=== PATIENT | male | born 1945 | race African-American/Black ===

== ENCOUNTER 2019-12-10 17:29 | Inpatient (IN) | payer OTHER ==
[2019-12-10] MEDS ORDERED: ALBUTEROL SO4 2.5/IPRATROPIUM 0.5 INH SOL 3 ML VIAL.NEB. NEB ONE (17:39)
--- NOTE | 2019-12-10 18:03 | HP ---
CIWA Score Nausea/Vomitin-No Nausea/No Vomiting Muscle Tremors: 1-None Visible, but [place] Anxiety: 1-Mildly Anxious Agitation: 1-Slight > Activity Paroxysmal Sweats: No Perspiration (poor historian) Orientation: 1-Uncertain about Date Tacttile Disturbances: 0-None Auditory Disturbances: 0-None Visual Disturbances: 0-None Headache: 0-None Present CIWA-Ar Total Score: 4 - Admission Criteria OASAS Guidelines: Admission for Medically Managed Detox: Requires at least one of the followin. CIWA greater than 12 2. Seizures within the past 24 hours 3. Delirium tremens within the past 24 hours 4. Hallucinations within the past 24 hours 5. Acute intervention needed for co occurring medical disorder 6. Acute intervention needed for co occurring psychiatric disorder 7. Severe withdrawal that cannot be handled at a lower level of care (continued vomiting, continued diarrhea, abnormal vital signs) requiring intravenous medication and/or fluids 8. Patient presents the following: Acute intervention needed for co-occurring med or psych disorder Admission Criteria Met: Admission criteria met Admission ROS [facility] Chief Complaint: SEEKING ALCOHOL DETOX. C/O WORSENING WITHDRAWAL SX'S Allergies/Adverse Reactions: Allergies Allergy/AdvReac Type Severity Reaction Status Date / Time Penicillins Allergy Verified 12/10/19 19:20 History of Present Illness: HERE FOR ALCOHOL DETOX. REFERRED BY [facility]. THIS IS HIS FIRST ADMISSION. SEEKING DETOX FOR ALCOHOLISM. CLIENT REPORTS DAILY USE OF 4 NIPS OF VODKA. 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 HE ALSO REPORTS CANNABIS AND COCAINE ABUSE.DENIES IVDU, HX/O DRUG OVERDOSE. CLIENT REPORTS MOST RECENT CLEAN TIME 1 MONTH. RELAPSING AT THE BEGINNING OF THE YEAR. LIVES ALONE, DENIES LEGALS Exam Limitations: Physical Impairment (OBESE, KELLER) - Ebola screening Have you traveled outside of the country in the last 21 days: No Have you had contact with anyone from an Ebola affected area: No Have you been sick,other than usual withdrawal symptoms: No Do you have a fever: No - Review of Systems Constitutional: Chills, Loss of Appetite, Night Sweats EENT: reports: Dental Problems (MISSING ALL TEETH) Respiratory: reports: Shortness of Breath, SOB with Exertion, Other (ASTHMA, copd client report cpap at home but does not use.) Cardiac: reports: No Symptoms Reported GI: reports: Poor Fluid Intake : reports: No Symptoms Reported Musculoskeletal: reports: No Symptoms Reported Integumentary: reports: Dryness (DRY SCALY BLE WITH VASCULAR CHANGES), Rash (PSORIASIS) Neuro: reports: Tremors, Unsteady Gait (AMBULATES WITH ROLLING WALKER) Endocrine: reports: Other (DM) Hematology: reports: No Symptoms Reported Psychiatric: reports: Orientated x3, Anxious Other Systems: Reviewed and Negative Patient History - Patient Medical History Hx Anemia: No Hx Asthma: Yes Hx Chronic Obstructive Pulmonary Disease (COPD): Yes Hx Cancer: No Hx Cardiac Disorders: No Hx Congestive Heart Failure: No Hx Hypertension: No Hx Hypercholesterolemia: No Hx Pacemaker: No HX Cerebrovascular Accident: No Hx Seizures: No Hx Dementia: No Hx Diabetes: Yes Hx Gastrointestinal Disorders: No Hx Liver Disease: No Hx Genitourinary Disorders: No Hx Sexually Transmitted Disorders: No Hx Renal Disease (ESRD): No Hx Thyroid Disease: No Hx Human Immunodeficiency Virus (HIV): No Hx Hepatitis C: Yes (TX'ED) Hx Depression: No Hx Suicide Attempt: No Hx Bipolar Disorder: No Hx Schizophrenia: No Other Medical History: DENIES - Patient Surgical History Past Surgical History: Yes Hx Orthopedic Surgery: Yes (R FOOT BUNION SX,) Anesthesia Reaction: No - PPD History Previous Implant?: Yes Documented Results: Positive w/o proof Implanted On Prior [facility] Admission?: No PPD to be Administered?: No - Smoking Cessation Smoking history: Former smoker Have you smoked in the past 12 months: Yes Aproximately how many cigarettes per day: 10 If you are a former smoker, when did you quit?: 6 MONTHS AGO Cigars Per Day: 0 Hx Chewing Tobacco Use: Yes Initiated information on smoking cessation: No - Substance & Tx. History Hx Alcohol Use: Yes Hx Substance Use: Yes Substance Use Type: Alcohol, Cocaine, Marijuana Hx Substance Use Treatment: Yes (DOES NOT RECALL) - Substances abused Alcohol Other (specify): VODKA Substance route: Oral Frequency: Daily (4X AWEEK) Amount used: 4 NIPS Age of first use: 41 Date of last use: 12/09/19 Cocaine Substance route: Inhalation (SMOKE) Frequency: 3-6 times per week (4X) Amount used: 1GM Age of first use: 12 Date of last use: 12/08/19 Marijuana/Hashish Substance route: Smoking Frequency: 1-2 times per week Amount used: 3 BLUNTS Age of first use: 14 Date of last use: 12/06/19 Admission Physical Exam [facility] - Physical General Appearance: Yes: Mild Distress, Other (arousable with freq periods of drowsiness. client is poor historian) HEENTM: Yes: EOMI, Normocephalic, Normal Voice, LUZMA, Pharynx Normal, Other (edentulous) Respiratory: Yes: Chest Non-Tender, Decreased Breath Sounds, Labored Respiration, Crackles, Wheezing Neck: Yes: No masses,lesions,Nodules, Supple, Trachea in good position Breast: Yes: Breasts Symetrical Cardiology: Yes: Regular Rhythm, Regular Rate, S1, S2 Abdominal: Yes: Normal Bowel Sounds, Non Tender, Soft, Protuberent Genitourinary: Yes: Hesitency Back: Yes: Normal Inspection Musculoskeletal: Yes: Other (unsteady gait, ambualtes with rolling walker) Extremities: Yes: Other (ble edema r non pitting cool to touch with rednessa nd vascular discoloration. lle with 2+ pitting edema) Neurological: Yes: Alert (arousable) Integumentary: Yes: Other (ble vascualr changes with edema and redness to rle) Lymphatic: Yes: Within Normal Limits - Diagnostic (1) Alcohol dependence with withdrawal, uncomplicated Status: Acute (2) Cannabis dependence, uncomplicated Status: Acute (3) Cocaine dependence, uncomplicated Status: Acute (4) Asthma Status: Acute (5) Diabetes Status: Acute (6) HLD (hyperlipidemia) Status: Acute (7) Neuropathy Status: Acute (8) Poor historian Status: Acute (9) Obesity (BMI 30-39.9) Status: Acute (10) Impaired mobility and personal care Status: Acute (11) Dependent on walker for ambulation Status: Acute (12) Sleep apnea Status: Acute Comment: non complaint w/ cpap (13) Non-compliance Status: Acute Comment: with medication and cpap Cleared for Admission [facility] - Detox or Rehab [facility] Level of Care: Medically Managed Detox Regimen/Protocol: Ativan Claeared for Rehab Admission: No Screened but not Admitted - Documentation of Visit Screened but not Admitted: Yes Left Prior to Completion of Assessment: No Insurance Authorization Denied: No Patient Does Not Meet Criteria for Admission: Yes Level of Care Recommended at this Time: ER Evaluation/Care (tx to sj for worsening sob, ble edema, somnolence) Inpatient Rehab Admission - Rehab Decision to Admit Inpatient rehab admission?: No
[2019-12-10] MEDS ORDERED: P-EPHED 60MG/TRIPROLIDI 2.5MG TABLET PO PRN (18:37)
[2019-12-10] MEDS ORDERED: DICYCLOMINE HCL 10 MG CAPSULE PO PRN (18:37)
[2019-12-10] MEDS ORDERED: MENTHOL/PHENOL 1 EACH UD MM PRN (18:37)
[2019-12-10] MEDS ORDERED: MAG HYDROX/AL HYDROX/SIMETH 30 ML UNIT-DOSE CUP PO PRN (18:37)
[2019-12-10] MEDS ORDERED: IBUPROFEN 400 MG TABLET (FP) PO PRN (18:37)
[2019-12-10] MEDS ORDERED: guaiFENesin 200 MG/10 ML 10 ML UNIT-DOSE CUPS PO PRN (18:37)
[2019-12-10] MEDS ORDERED: MAGNESIUM CITRATE 300 ML BOTTLE PO PRN (18:37)
[2019-12-10] MEDS ORDERED: ACETAMINOPHEN 325 MG TABLET (FP) PO PRN ×2 (18:37)
[2019-12-10] MEDS ORDERED: BISMUTH SUBSALICYLATE 524 MG/30 ML UD PO PRN (18:37)
[2019-12-10] MEDS ORDERED: MAGNESIUM HYDROX 2400MG/30ML ORAL SUSPENSION 30 ML CUP PO PRN (18:37)
[2019-12-10] MEDS ORDERED: METHOCARBAMOL 500 MG TABLET PO PRN (18:37)
[2019-12-10 18:49] VITALS: BP 134/89; PULSE 81; TEMP 97.2; BMI 39.5
--- NOTE | 2019-12-10 20:10 | PN ---
[facility] Progress Note Note: client is a poor historian, seeking alcohol detox. client is very sleepy on interview, requiring frequent reminders to stay awake. he c/o sob with audible wheezing, given duoneb x1 with mild relief, 02 sat 92 r/a. given 02 l liter for comfort. client exhibits kirby and also sob at rest. ble swelling noted, cool to touch right with some redness, left with pitting edema. both with dryness and scaly skin. client was found with a bottle of unopened eloquis dated from 03/2019. client unsure of dvt hx. initially denying then stating he no longer has it. case d/w dr. Wells from [facility] transfer to [facility] for medical clearance for sob/ r/o dvt, client may return to [facility] once cleared
[2019-12-10] MEDS ORDERED: THIAMINE HCL 100 MG TABLET (FP) PO SCH (22:00)
[2019-12-10] MEDS ORDERED: MELATONIN 5 MG TABLETS PO SCH (22:00)
--- NOTE | 2019-12-11 08:58 | EKG ---
Test Reason : Blood Pressure : / mmHG Vent. Rate : 072 BPM Atrial Rate : 072 BPM P-R Int : 298 ms QRS Dur : 144 ms QT Int : 436 ms P-R-T Axes : 066 -78 036 degrees QTc Int : 477 ms SINUS RHYTHM WITH 1ST DEGREE A-V BLOCK WITH FREQUENT PREMATURE VENTRICULAR COMPLEXES RIGHT BUNDLE BRANCH BLOCK LEFT ANTERIOR FASCICULAR BLOCK BIFASCICULAR BLOCK ABNORMAL ECG NO PREVIOUS ECGS AVAILABLE Confirmed by AMRIK CHI MD ([id number]) on 12/11/2019 8:58:15 AM Referred By: Confirmed By:AMRIK CHI MD
[2019-12-11] MEDS ORDERED: PRENATAL VITAMINS W/ FOLIC ACID TABLET (FP) PO SCH (10:00)
[2019-12-11] MEDS ORDERED: PNEUMOC 13-VAL CONJ-DIP CRM/PF 0.5 ML DISP.SYRIN IM ONE (12:00)
== END 2019-12-11 00:01 | disposition short-term general hospital (02) | DRG 897 ==
LOC: YASAS 17:29 → Y6N 19:41
PROVIDERS: ADMIT Allergy & Immunology; ATTEND Allergy & Immunology
PROC: HZ2ZZZZ Detoxification Services for Substance Abuse Treatment (ICD-10-PCS; principal; 2019-12-10)
DX: F10.230 Alcohol dependence with withdrawal, uncomplicated (principal); F14.10 Cocaine abuse, uncomplicated; F12.10 Cannabis abuse, uncomplicated; F17.210 Nicotine dependence, cigarettes, uncomplicated; J44.9 Chronic obstructive pulmonary disease, unspecified; E11.9 Type 2 diabetes mellitus without complications; Z79.4 Long term (current) use of insulin; L40.9 Psoriasis, unspecified; L85.3 Xerosis cutis; E78.5 Hyperlipidemia, unspecified; G62.9 Polyneuropathy, unspecified; Z74.09 Other reduced mobility; G47.39 Other sleep apnea; R60.0 Localized edema; R26.89 Other abnormalities of gait and mobility; R06.9 Unspecified abnormalities of breathing; Z86.19 Personal history of other infectious and parasitic diseases; Z91.14 Patient's other noncompliance with medication regimen; Z99.89 Dependence on other enabling machines and devices; E66.9 Obesity, unspecified; Z68.39 Body mass index [BMI] 39.0-39.9, adult
CPT/HCPCS: 82962; 93005; 93010; U0003

== ENCOUNTER 2019-12-10 20:44 | Inpatient (IN) | payer OTHER ==
[2019-12-10] MEDS ORDERED: ALBUTEROL SO4 HFA INHALER IH ONE ×2 (22:01→22:51)
[2019-12-10] MEDS ORDERED: MAGNESIUM SULF 50% (8.12 MEQ/2 ML-1 GM VIAL) IVPB ONE (22:01)
--- NOTE | 2019-12-10 22:17 | PDOC ---
Documentation entered by Maria D Ledesma SCRIBE, acting as scribe for Monica Reeder DO. Monica Reeder DO: This documentation has been prepared by the jelly, Maria D Ledesma SCRIBE, under my direction and personally reviewed by me in its entirety. I confirm that the documentation accurately reflects all work, treatment, procedures, and medical decision making performed by me. Attending Attestation - Resident Resident Name: Neeraj Madrid - ED Attending Attestation I have performed the following: I have examined & evaluated the patient, The case was reviewed & discussed with the resident, I agree w/resident's findings & plan, Exceptions are as noted - HPI HPI: 12/10/19 21:01 Patient is a 74 year old male with a significant past medical history of afib, htn, copd, chf, and alcohol abuse who [place] [facility] [place] Pt was noted to be hypoxic and wheezing. Pt states his legs have been swollen and he has felt sob. Pt is noncompliant with his eliquis and sent to the ER for further evaluation. 12/10/19 23:57 - Physicial Exam PE: 12/10/19 22:09 gen: sleepy, but arousable heent: EOMI, MMM neck: supple heart: +s1s2 reg lungs: diminished bs b/l bases abd: soft, nt, nd, +bs, obese ext: chronic venous stasis changes to b/l LE, pulses intact - Medical Decision Making 12/10/19 22:12 a/p: 74yo male sent from [facility] for eval of sob and leg swelling -hx of etoh abuse -pt with sob and leg swelling -supposed to be on eliquis for afib -currently in sinus with a 1st degree av block -will send labs, ekg, cxr, dvt ultrasound, trop -will send vbg -will give albuterol and mag 12/10/19 22:45 dvt neg 12/10/19 23:08 trop neg, bnp 300 cxr shows pulm vasc congestion at the bases 12/10/19 23:59 iv lasix given will obtain ct chest to eval for poss pna will need admission pt endorsed to the night team pending ct chest and admission Heart Score/ECG Review - ECG Intrepretation Comment:: 12/10/19 22:21 sinus at 72, 1st degree av block, rbbb, lafb, pac, abnl ekg Discharge - Discharge Information Problems reviewed: Yes Clinical Impression/Diagnosis: Pulmonary edema, Dyspnea Condition: Fair - Admission Yes - Follow up/Referral - Patient Discharge Instructions - Post Discharge Activity
[2019-12-10 22:19] LABS: VENOUS BASE EXCESS 1.4 mmol/L (-2-2); VENOUS O2 SATURATION 54.5 % (70-80); VENOUS PCO2 56.7 mmHg (38-52); VENOUS PH 7.326 (7.310-7.410)
[2019-12-10 22:21] LABS: BASO % 0.6 % (0-2.0); EOS % 2.3 % (0-4.5); HEMATOCRIT 48.2 % (35.4-49); HEMOGLOBIN 15.8 GM/dL (11.7-16.9); LYMPH % 31.2 % (8-40); MCH 30.5 pg (25.7-33.7); MCHC 32.7 g/dl (32.0-35.9); MEAN CELL VOLUME 93.5 fl (80-96); MEAN PLT VOLUME 9.4 fl (7.5-11.1); NEUT % 58.9 % (42.8-82.8); PLATELET COUNT 122 K/MM3 (134-434); RBC 5.16 M/mm3 (4.00-5.60); RDW 17.1 % (11.9-15.9); WHITE BLOOD COUNT 7.9 K/mm3 (4.0-10.0)
--- NOTE | 2019-12-10 22:33 | PDOC ---
History of Present Illness - General Chief Complaint: Shortness of Breath Stated Complaint: S O B Time Seen by Provider: 12/10/19 20:52 - History of Present Illness Initial Comments: 12/10/19 22:30 74yo male with PMH of polysubstance abuse, a-fib (on Eliquis, but has not been taking it at least for the past month) asthma (vs. COPD), DM, HLD, DIDI, sent from [facility] for SOB. Patient reports SOB that he attributes to his asthma. Also reports orthopnea. Also reports occasional leg pain, sometimes right sometimes left ROS GENERAL/CONSTITUTIONAL: No fever or chills. No weakness. HEAD, EYES, EARS, NOSE AND THROAT: No change in vision. No ear pain or discharge. No sore throat. CARDIOVASCULAR: No chest pain. + shortness of breath RESPIRATORY: No cough, wheezing, or hemoptysis. GASTROINTESTINAL: No nausea, vomiting, diarrhea or constipation. GENITOURINARY: No dysuria, frequency, or change in urination. MUSCULOSKELETAL: b/l leg pain, not at present. No neck or back pain. SKIN: No rash NEUROLOGIC: No headache, vertigo, loss of consciousness, or change in strength/sensation. ENDOCRINE: No increased thirst. No abnormal weight change HEMATOLOGIC/LYMPHATIC: No anemia, easy bleeding, or history of blood clots. ALLERGIC/IMMUNOLOGIC: No hives or skin allergy. PE GENERAL: Awake, alert, and fully oriented, in no acute distress. Later more somnolent HEAD: No signs of trauma, normocephalic, atraumatic EYES: PERRLA, EOMI, sclera anicteric, conjunctiva clear ENT: Auricles normal inspection, hearing grossly normal, nares patent, oropharynx clear without exudates. Moist mucosa NECK: Normal ROM, supple, no lymphadenopathy, JVD, or masses LUNGS: No distress, speaks full sentences, clear to auscultation bilaterally, diminished breath sounds HEART: Regular rate and irregular rhythm, normal S1 and S2, no murmurs, rubs or gallops, peripheral pulses normal and equal bilaterally. ABDOMEN: Soft, nontender, normoactive bowel sounds. No guarding, no rebound. No masses EXTREMITIES : chronic venous stasis changes. 1+ b/l pitting edema to knee. No erythema NEUROLOGICAL: Cranial nerves II through XII grossly intact. Normal speech, no focal sensorimotor deficits SKIN: Warm, Dry Vital Signs Temp Pulse Resp BP Pulse Ox 98.2 F 76 20 150/86 94 L 12/11/19 00:35 12/11/19 00:35 12/10/19 23:41 12/11/19 00:35 12/10/19 23:41 MDM 74yo male with extensive PMH transfered from [facility] for SOB, also reports occasional leg pain. DDx: ACS vs. COPD/asthma vs. CHF. DVT vs. venous stasis vs. msk pain vs CHF -EKG -CXR -CBC, CMP, cardiac enzymes, VBG, BNP, mg -US LE b/l -albuterol inhaler -magnesium IV 12/11/19 01:48 EKG: NSR with 1st degree AV block, frequent PVCs, RBBB, left anterior fascicular block, QTc 477, no ischemic changes CXR: increased vascular markings labs: -CBC: no white count, no anemia, RDW 17.1, platelets 122 -VBG: pH 7.326, pCO2 56.7 -CMP: Ca 8.3 -trops neg x1 -BNP 362.7 -Ordered for 40mg lasix IV and CT chest with concern for CHF vs. pneumonia vs. covid pneumonia Patient was urinating significantly after lasix and got out of stretcher to urinate while at CT. Fell, no headstrike or LOC. Got CT head and c-spine 12/11/19 02:02 CT head: Nasal bridge fracture without skull fracture or intracranial hemor rhage. CT C-spine: FINDINGS: Mild motion artifact is noted. There are moderate degenerative change with mild degenerative listheses. No fracture or prevertebral soft tissue edema. The lung apices are clear. IMPRESSION: Mildly limited exam without evidence of fracture. CT Chest: FINDINGS: There is no aortic aneurysm. There is no significant mediastinal or hilar adenopathy. The heart size is normal. The trachea and bronchi are patent. There is no pleural or pericardial effusion. Moderate emphysema is noted, predominating in the upper lobes. The lungs are clear with a minimal linear atelectasis. The upper abdominal structures are normal.. IMPRESSION: Moderate emphysema. 12/11/19 02:16 Admit for symptomatic SOB -- CHF vs COPD exacerbation. Good UOP with lasix and emphysema on CT chest Signed out to admitting team 12/11/19 05:20 Past History - Medical History Allergies/Adverse Reactions: Allergies Allergy/AdvReac Type Severity Reaction Status Date / Time Penicillins Allergy Verified 12/10/19 19:20 Home Medications: Ambulatory Orders Albuterol Sulfate [Albuterol Sulfate Hfa] PRN 12/10/19 Atorvastatin Ca [Lipitor] 40 mg PO HS 12/10/19 Gabapentin [Neurontin] 100 mg PO TID 12/10/19 Lisinopril 30 mg PO DAILY 12/10/19 Metformin HCl [Glucophage] 1,000 mg PO DAILY 12/10/19 Spiriva 12/10/19 Anemia: No Asthma: Yes Cancer: No Cardiac Disorders: No CVA: No COPD: Yes CHF: No Dementia: No Diabetes: Yes GI Disorders: No Disorders: No HTN: No Hypercholesterolemia: No Kidney Stones: No Liver Disease: No Seizures: No Thyroid Disease: No - Surgical History Abdominal Surgery: No Appendectomy: No Cardiac Surgery: No Cholecystectomy: No Lung Surgery: No Neurologic Surgery: No Orthopedic Surgery: Yes (R FOOT BUNION SX,) - Reproductive History Testicular Surgery: No - Immunization History Immunization Up to Date: Yes - Psycho-Social/Smoking History Smoking History: Former smoker Have you smoked in the past 12 months: Yes Number of Cigarettes Smoked Daily: 10 If you are a former smoker, when did you quit?: 6 MONTHS AGO Cigars Per Day: 0 Information on smoking cessation initiated: No - Substance Abuse Hx (Audit-C & DAST Scrn) How often the patient has a drink containing alcohol: Never Number of drinks the patient has on a typical day: 1 or 2 How often the patient has six or more drinks on one occasion: Never Score: In Men: 4 or > Positive; In Women: 3 or > Positive: 0 Screen Result (Pos requires Nsg. Audit-10AR): Negative In the last yr the pt used illegal drug/Rx for NonMed reason: No Score: Yes response is considered Positive: 0 Screen Result (Positive result requires Nsg. DAST-10): Negative *Physical Exam - Vital Signs Last Vital Signs Temp Pulse Resp BP Pulse Ox 98.2 F 82 22 H 143/77 93 L 12/10/19 20:58 12/10/19 20:58 12/10/19 20:58 12/10/19 20:58 12/10/19 20:58 ED Treatment Course - LABORATORY CBC & Chemistry Diagram: 12/10/19 22:00 12/10/19 22:00 - ADDITIONAL ORDERS Additional order review: Laboratory Results 12/10/19 22:00 VBG pH 7.326 POC VBG pCO2 56.7 H POC VBG pO2 31.4 VBG HCO3 29.0 VBG O2 Sat (Jadon) 54.5 L VBG Base Excess 1.4 12/10/19 22:00 RBC 5.16 MCV 93.5 MCHC 32.7 RDW 17.1 H MPV 9.4 Neutrophils % 58.9 Lymphocytes % 31.2 Monocytes % 7.0 Eosinophils % 2.3 Basophils % 0.6 Discharge - Discharge Information Problems reviewed: Yes Clinical Impression/Diagnosis: Pulmonary edema, Dyspnea Condition: Fair - Follow up/Referral - Patient Discharge Instructions - Post Discharge Activity
[2019-12-10] MEDS ORDERED: MAGNESIUM 1GM/D5W - 1 GM/100 ML IVPB IVPB ONE (22:51)
[2019-12-10 22:54] LABS: ALBUMIN 3.6 g/dl (3.4-5.0); BILIRUBIN,TOTAL 0.3 mg/dL (0.2-1); BLOOD UREA NITROGEN 14.1 mg/dL (7-18); CALCIUM 8.3 mg/dL (8.5-10.1); CREATININE 1.1 mg/dL (0.55-1.3); MAGNESIUM 2.2 mg/dL (1.8-2.4); N-TERMINAL BNP 362.7 pg/ml (5-125); POTASSIUM 3.9 mmol/L (3.5-5.1); TOT PROT 8.1 g/dl (6.4-8.2)
[2019-12-10] MEDS ORDERED: FUROSEMIDE 40 MG/4 ML INJECTABLE VIAL IVPUSH ONE (23:24)
[2019-12-10] MEDS ORDERED: FUROSEMIDE 40 MG/4 ML INJECTABLE VIAL ONE (23:32)
--- NOTE | 2019-12-11 02:40 | PN ---
Teaching Attending Note Name of Resident: Susana Carney ATTENDING PHYSICIAN STATEMENT I saw and evaluated the patient. I reviewed the resident's note and discussed the case with the resident. I agree with the resident's findings and plan as documented. SUBJECTIVE: Patient is a 74 year old man with a PMH of Penicillin allergy, Afib (prescribed Eliquis but not taking it), HTN, COPD, CHF, Polysubstance abuse (Alcohol, Cocaine, Marijuana), DIDI, NIDDM and HLD sent from [facility] for SOB and leg swelling. Was noted to be hypoxic and wheezing. Patient states his legs have been swollen and he has felt short of breath and has orthopnea. Also reports occasional leg pain. Generally nonadherent with his medications. Patient denies chest pain, abdominal pain, headache, palpitations, dizziness, fever, chills, nausea, vomiting, diarrhea, constipation, dysuria, frequency, urgency, melena, hematochezia or hematuria. Former smoker. Denies tobacco use. No sick contacts or recent travels. Family history is unremarkable. Fell down in CT scan when he got up to urinate - prompting head and C-spine CT scan. OBJECTIVE: Alert Vital Signs Period Temp Pulse Resp BP Sys/Val[place] Pulse Ox Last 24 Hr 98.2 F-98.2 F 73-83 20-22 143-150/63-86 93-97 HEENT: No Jaundice, eye redness or discharge, PERRLA, EOMI. Normocephalic, atr aumatic. External ears are normal and hearing is grossly intact. No nasal discharge. Neck: Supple, nontender. No palpable adenopathy or thyromegaly. No JVD Chest: Good effort. Diminished breath sounds. Clear to percussion. Heart: Regular. No S3, rub or murmur Abdomen: Not distended, soft, nontender and no HSM. No rebound or guarding. Normal bowel sounds. Ext: Peripheral pulses intact. Chronic venous stasis dermatitis changes; leg edema. Skin: Warm and dry. No petechiae, rash or ecchymosis. Neuro: Alert. Oriented x3. CN 2-12 grossly intact. Sensation grossly intact in all four extremities and DTR are symmetric. Psych: Appropriate mood and affect. Good insight. Home Medications Medication Instructions Recorded Albuterol Sulfate [Albuterol PRN 12/10/19 Sulfate Hfa] Atorvastatin Ca [Lipitor] 40 mg PO HS 12/10/19 Gabapentin [Neurontin] 100 mg PO TID 12/10/19 Lisinopril 30 mg PO DAILY 12/10/19 Metformin HCl [Glucophage] 1,000 mg PO DAILY 12/10/19 Spiriva 12/10/19 Abnormal Lab Results 12/10/19 12/10/19 12/10/19 22:00 22:00 22:00 RDW 17.1 H Plt Count 122 L POC VBG pCO2 56.7 H VBG O2 Sat (Jadon) 54.5 L Calcium 8.3 L B-Natriuretic Peptide 362.7 H Current Medications Generic Name Dose Route Start Last Admin Trade Name Freq PRN Reason Stop Dose Admin Albuterol/Ipratropium 1 amp 12/11/19 05:23 Duoneb - NEB Q6H PRN SHORTNESS OF BREATH Chlordiazepoxide HCl 25 mg 12/11/19 05:00 Librium - PO 12/11/19 21:01 Q8H [facility] Chlordiazepoxide HCl 10 mg 12/13/19 00:00 Librium - PO 12/13/19 23:59 Q12H PRN Signs/symptoms of Withdrawal Chlordiazepoxide HCl 10 mg 12/11/19 05:14 Librium - PO 12/12/19 23:59 Q8H PRN Signs/symptoms of Withdrawal Chlordiazepoxide HCl 15 mg 12/12/19 05:00 Librium - PO 12/12/19 21:01 Q8H [facility] Chlordiazepoxide HCl 10 mg 12/13/19 05:00 Librium - PO 12/13/19 21:01 Q8H [facility] Chlordiazepoxide HCl 10 mg 12/14/19 05:00 Librium - PO 12/14/19 05:01 ONCE ONE Enoxaparin Sodium 40 mg 12/11/19 10:00 Lovenox - SQ DAILY [facility] Folic Acid 1 mg 12/11/19 10:00 Folic Acid - PO DAILY [facility] Furosemide 20 mg 12/11/19 10:00 Lasix Injection - IVPUSH DAILY [facility] Multivitamins/Minerals/Vitamin C 1 tab 12/11/19 10:00 Tab-A-Vit - PO DAILY [facility] ASSESSMENT AND PLAN: 1. CHF/COPD exacerbation - Likely precipitated by nonadherence to medical care and polysubstance abuse. CXR shows cardiomegaly with pulmonary vascular congestion, blunted left costophrenic angle and hilar prominence. CT Chest: FINDINGS: There is no aortic aneurysm. There is no significant mediastinal or hilar adenopathy. The heart size is normal. The trachea and bronchi are patent. There is no pleural or pericardial effusion. Moderate emphysema is noted, predominating in the upper lobes. The lungs are clear with a minimal linear atelectasis. The upper abdominal structures are normal. IMPRESSION: Moderate emphysema. No evidence of acute intracranial pathology on noncontrast head CT scan but shows nasal bridge fracture without skull fracture or intracranial hemorrhage. CT scan of C-spine shows "moderate degenerative change with mild degenerative listheses. No fracture or prevertebral soft tissue edema." No DVT low lower extremities noted on vascular sudy. ER staff prescribed Albuterol, MgSO4 and IV Lasix for the patient. EKG shows NSR at 72/minute, 1o AV block, RBBB, LAFB, PVCs and QTc [address]-T wave changes. No old EKG available for comparison. Initial troponin is negative. Will avoid drugs that may prolong QTc. Viral testing for COVID-19 ordered and patient placed on airborne, droplet and contact isolation. Started on supplemental oxygen via nasal cannula. Will admit to telemetry, treat with IV Lasix to achieve adequate diuresis, get ECHO, restrict dietary salt intake, monitor renal function, monitor and replete electrolytes, get daily weight and consult Cardiology. Continue Albuterol, Spiriva and Symbicort. Consult Pulmonary. Low platelets may be due to alcoholism. Will continue comprehensive care for all of patients comorbid conditions. 2. DM Will implement sliding scale insulin regimen. Provide comprehensive diabetes care with patient teaching and counseling about the importance of adherence to prescribed diabetes regimen, euglycemia, eye care and foot care. 3. Obesity Counseled on the risks associated with obesity. Will provide patient all the necessary assistance, counseling and positive reinforcement to facilitate weight loss. Consult [employer]. 4. Polysubstance abuse Will monitor for drug withdrawal and alcohol, implement [facility] alcohol withdrawal protocol and do neurochecks. Implement seizure, fall and aspiration precautions. Treat with thiamine and folic acid. Monitor and replete electrolytes (Ca,Mg,K,P). Counseled patient about abstaining from alcohol. Will consult histology specialist and refer to alcohol detox upon discharge. 5. Hypertension Will restart suitable outpatient antihypertensive drugs when clinically appropriate. Subsequently, will revise regimen to ensure [id number] excellent BP control. Patient counseled on the injurious effects of uncontrolled hypertension. Nonpharmacologic measures to control hypertension like weight loss, salt restriction and exercise stressed. Importance of adherence to treatment regimen and attainment of normotension emphasized. 6. DVT prophylaxis - Lovenox 40 mg SQ q 24 hours. 7. Advance directives - Full code
[2019-12-11] MEDS ORDERED: chlordiazePOXIDE HCL 10 MG CAPSULE PO PRN (05:14)
[2019-12-11] MEDS ORDERED: THIAMINE HCL 200 MG/2 ML VIAL IVPB ONE (05:19)
[2019-12-11] MEDS ORDERED: ALBUTEROL SO4 2.5/IPRATROPIUM 0.5 INH SOL 3 ML VIAL.NEB. NEB PRN (05:23)
[2019-12-11] MEDS ORDERED: THIAMINE HCL 200 MG/2 ML VIAL ONE (05:43)
[2019-12-11] MEDS ORDERED: chlordiazePOXIDE HCL 25 MG CAPSULE ONE ×2 (05:43→15:40)
--- NOTE | 2019-12-11 06:06 | CON.CARD ---
Consult Consult Specialty:: Cardiology Referred by:: Dr. Patel Reason for Consultation:: SOB - History of Present Illness Chief Complaint: SOB History of Present Illness: 74M Hx polysubstance abuse, COPD, AF noncompliant w AC, presents to ER for SOB and sustained a mechanical fall in ER with nasal fx. Chest CT showed COPD. BNP 367 Pt denies CP/palps/edema/pnd - History Source History Provided By: Patient, Medical Record Limitations to Obtaining History: Poor Historian - Past Medical History Cardio/Vascular: Yes: AFIB, HTN Pulmonary: Yes: COPD Gastrointestinal: No: Ascites, Cancer, Constipation, Crohn's Disease, Diverticulitis, Diverticulosis, Esophageal Varices, Gastritis, GERD, GI Bleed, Hemorrhoids, Hiatal Hernia, Inflamatory Bowel Disease, Irritable Bowel Disease, Pancreatitis, Peptic Ulcer Disease, Ulcerative Colitis, Other Renal/: No: Renal Failure, Renal Inusuff, BPH, Cancer, Hematuria, Hemodialysis, Neurogenic Bladder, Renal Calculi, UTI, Other Heme/Onc: No: Anemia, B12 Deficiency, Bleeding Disorder, Cancer, Current Chemotherapy, Current Radiation Therapy, Hemochromatosis, Hypercoaguable State, Myeloproliferative Synd, Sickle Cell Disease, Sickle Cell Trait, Thrombocytopenia, Other Infectious Disease: No: AIDS, C-Diff, Herpes Zoster, HIV, MRSA, STD's, Tuberculosis, VREF, Other Psych: Yes: Addictions Musculoskeletal: No: Bursitis, Chronic low back pain, Hemiparesis, Hemiplegia, Osteoarthritis, Paraplegia, Other Rheumatology: No: Fibromyalgia, Gout, Lupus, Rheumatoid Arthritis, Sarcoidosis, Vasculitis, Other ENT: No: Allergic Rhinitis, Sinusitis, Other Endocrine: Yes: Diabetes Mellitus - Alcohol/Substance Use Hx Alcohol Use: Yes - Smoking History Smoking history: Former smoker Have you smoked in the past 12 months: Yes Aproximately how many cigarettes per day: 10 If you are a former smoker, when did you quit?: 6 MONTHS AGO - Social History History of Recent Travel: No Home Medications - Allergies Allergies/Adverse Reactions: Allergies Allergy/AdvReac Type Severity Reaction Status Date / Time Penicillins Allergy Verified 12/10/19 19:20 - Home Medications Home Medications: Ambulatory Orders Albuterol Sulfate [Albuterol Sulfate Hfa] PRN 12/10/19 Atorvastatin Ca [Lipitor] 40 mg PO HS 12/10/19 Gabapentin [Neurontin] 100 mg PO TID 12/10/19 Lisinopril 30 mg PO DAILY 12/10/19 Metformin HCl [Glucophage] 1,000 mg PO DAILY 12/10/19 Spiriva 12/10/19 Family Medical History Family History: Unremarkable (not pertinent to this presentation) Review of Systems - Review of Systems Constitutional: reports: No Symptoms Eyes: reports: No Symptoms HENT: reports: No Symptoms Neck: reports: No Symptoms Cardiovascular: reports: Shortness of Breath Respiratory: reports: SOB Gastrointestinal: reports: No Symptoms Genitourinary: reports: No Symptoms Breasts: reports: No Symptoms Reported Musculoskeletal: reports: No Symptoms Integumentary: reports: No Symptoms Neurological: reports: No Symptoms Endocrine: reports: No Symptoms Hematology/Lymphatic: reports: No Symptoms Psychiatric: reports: No Symptoms - Risk Factors Known Risk Factors: Yes: Diabetes Mellitus, Hypertension, Smoking Vital Signs: Vital Signs Temperature 97.9 F 12/11/19 05:20 Pulse Rate 73 12/11/19 05:20 Respiratory Rate 20 12/11/19 05:20 Blood Pressure 130/66 12/11/19 05:20 O2 Sat by Pulse Oximetry (%) 99 12/11/19 05:20 Constitutional: Yes: No Distress Eyes: Yes: Conjunctiva Clear Respiratory: Yes: Other (decreased breath sounds b/l, no rales or active wheezing) Gastrointestinal: Yes: Soft, Abdomen, Obese Cardiovascular: Yes: Regular Rate and Rhythm JVD: No Heart Sounds: Yes: S1, S2 (rrr) Edema: No Neurological: Yes: Confusion ...Motor Strength: WNL - Other Data Labs, Other Data: CBC, BMP 12/10/19 22:00 12/10/19 22:00 Troponin, BNP 12/10/19 22:00 Troponin I 0.02 B-Natriuretic Peptide 362.7 H Troponin, BNP 12/10/19 22:00 Troponin I 0.02 B-Natriuretic Peptide 362.7 H Laboratory Tests 12/10/19 12/10/19 12/10/19 06:11 22:00 22:00 WBC 7.9 Hgb 15.8 Plt Count 122 L Sodium 141 Potassium 3.9 Creatinine 1.1 Troponin I 0.02 B-Natriuretic Peptide 362.7 H Opiates Screen Methadone Screen Barbiturate Screen Phencyclidine Screen Ur Amphetamines Screen MDMA (Ecstasy) Screen Benzodiazepines Screen Cocaine Screen U Marijuana (THC) Screen COVID-19 ([place]) Pending 12/11/19 06:40 WBC Hgb Plt Count Sodium Potassium Creatinine Troponin I B-Natriuretic Peptide Opiates Screen Negative Methadone Screen Pending Barbiturate Screen Negative Phencyclidine Screen Negative Ur Amphetamines Screen Pending MDMA (Ecstasy) Screen Pending Benzodiazepines Screen Pending Cocaine Screen Pending U Marijuana (THC) Screen Negative COVID-19 ([place]) NSR, 1st degree AV, LAHB, RBBB, APCs Echo: Pending Imaging - Results Chest X-ray: Report Reviewed, Image Reviewed Cat Scan: Report Reviewed EKG: Image Reviewed Assessment/Plan IMP: Polysubstance abuse PAF, nonadherent with AC Chronic COPD with acute exacerbation Mechanical fall, nasal fracture REC: 1. Polysub abuse: -Librium taper as per primary team -Utox -Rehab upon discharge 2. PAF: documented PAF, now in AC -per reports non compliant w/ AC -Patient does not seem to be safe candidate for full AC -consider low dose ASA 81mg daily, probably the safer alternative -Now in NSR -Outpatient eval for suspected DIDI 3. AECOPD: -cont nebs/supp O2 -Pulm eval pending -Do not suspect sig component CHF given clear lung exam and BNP < 400, TnI negative. -Reasonable to give trial Lasix for 24-48 hours, check echo for EF assessment 4. [facility] fall: -falls precations recommended -Not ideal candidate for full AC 5. RBBB/LAHB: -Outpt cardiology f/u Can d/c telemetry.
[2019-12-11] MEDS: chlordiazePOXIDE HCL 25 MG CAPSULE PO SCH ×4 (06:13→23:13)
--- NOTE | 2019-12-11 06:29 | HP ---
CHIEF COMPLAINT: I need to pee PCP: HISTORY OF PRESENT ILLNESS: 74yo M with PMHx of polysubstance abuse (alcohol, cocaine, marihuana), ?afib not on eliquis, ?asthma vs COPD, DM, HLD, DIDI who was sent from [facility] due to SOB. Patient endorsed some generalized pain particularly in his arms, legs, and below the rib cage. Denied SOB, CP, NVD, constipation, fevers, chills, headhache. ER course was notable for: (1) RR 22 sat 93-97% on 3L NC (2) Plts 122, BNP 362.7 (3) bilateral duplex: no DVT (4) cervical spine CT: degenerative changes, no fractures (5) head CT: nasal bridge fracture, no skull fracture or hemorrhage (6) chest CT: moderate emphysema (7) CXR: congested, cardiomegaly, perihilar and peribronchial infiltrates (8) EKst degree AV block with frequent PVCs, bifascicular block Recent Travel: unable to assess PAST MEDICAL HISTORY: as per HPI PAST SURGICAL HISTORY: foot surgery 20y ago, leg surgery from [facility] Social History: Smokin packets per day Alcohol: "too much" Drugs: cocaine 2 days ago Job: "I take pictures" Home: "I live with a young lady" Allergies Penicillins Allergy (Verified 12/10/19 19:20) - breaks out in hives HOME MEDICATIONS: Home Medications Medication Instructions Recorded Albuterol Sulfate [Albuterol PRN 12/10/19 Sulfate Hfa] Atorvastatin Ca [Lipitor] 40 mg PO HS 12/10/19 Gabapentin [Neurontin] 100 mg PO TID 12/10/19 Lisinopril 30 mg PO DAILY 12/10/19 Metformin HCl [Glucophage] 1,000 mg PO DAILY 12/10/19 Spiriva 12/10/19 REVIEW OF SYSTEMS as per HPI PHYSICAL EXAMINATION Vital Signs - 24 hr 12/10/19 12/10/19 12/10/19 20:58 23:00 23:11 Temperature 98.2 F Pulse Rate 82 83 Pulse Rate [ Left Radial] Respiratory 22 H Rate Blood Pressure 143/77 Blood Pressure [Left Arm] O2 Sat by Pulse 93 L 2 L 97 Oximetry (%) 08/27/20 08/28/20 08/28/20 23:41 00:35 04:35 Temperature 98.2 F 97.9 F Pulse Rate 76 73 Pulse Rate [ 73 Left Radial] Respiratory 20 20 Rate Blood Pressure 150/86 130/66 Blood Pressure 143/63 [Left Arm] O2 Sat by Pulse 94 L Oximetry (%) 12/11/19 05:20 Temperature 97.9 F Pulse Rate Pulse Rate [ 73 Left Radial] Respiratory 20 Rate Blood Pressure Blood Pressure 130/66 [Left Arm] O2 Sat by Pulse 99 Oximetry (%) GENERAL: AAM, obese, sleeping comfotably in 3L NC, laying at ~10 degree angle, difficult to arouse but arousable, not in distress HEAD: Normal with no signs of trauma, edentulism, extrensive secretions from oral cavity draining onto shirt, macroglossia EYES: Extraocular movements intact but sluggish, pupils constrict to light, icteric vs erythematous sclera EARS, NOSE, THROAT: Moist mucous membranes. LUNGS: unable to appreciate breath sounds HEART: unable to appreciate heart sounds ABDOMEN: Soft, nontender, obese distended EXTREMITIES: 2+ radial pulses, 1+ dorsalis pedis pulses NEUROLOGICAL: Cranial nerves difficult to assess, mostly incomprehensible muffled speech, macroglossia PSYCHIATRIC: Attemps to be cooperative but spontaneously falls asleep. Rare eye contact Laboratory Results - last 24 hr 12/10/19 12/10/19 12/10/19 22:00 22:00 22:00 WBC 7.9 RBC 5.16 Hgb 15.8 Hct 48.2 MCV 93.5 MCH 30.5 MCHC 32.7 RDW 17.1 H Plt Count 122 L MPV 9.4 Absolute Neuts (auto) 4.6 Neutrophils % 58.9 Lymphocytes % 31.2 Monocytes % 7.0 Eosinophils % 2.3 Basophils % 0.6 Nucleated RBC % 0 VBG pH 7.326 POC VBG pCO2 56.7 H POC VBG pO2 31.4 VBG HCO3 29.0 VBG O2 Sat (Jadon) 54.5 L VBG Base Excess 1.4 Sodium 141 Potassium 3.9 Chloride 105 Carbon Dioxide 27 Anion Gap 9 BUN 14.1 Creatinine 1.1 Est GFR (CKD-EPI)AfAm 76.78 Est GFR (CKD-EPI)NonAf 66.24 POC Glucometer Random Glucose 87 Calcium 8.3 L Magnesium 2.2 Total Bilirubin 0.3 AST 27 ALT 28 Alkaline Phosphatase 87 Creatine Kinase 80 Troponin I 0.02 B-Natriuretic Peptide 362.7 H Total Protein 8.1 Albumin 3.6 12/11/19 06:07 WBC RBC Hgb Hct MCV MCH MCHC RDW Plt Count MPV Absolute Neuts (auto) Neutrophils % Lymphocytes % Monocytes % Eosinophils % Basophils % Nucleated RBC % VBG pH POC VBG pCO2 POC VBG pO2 VBG HCO3 VBG O2 Sat (Jadon) VBG Base Excess Sodium Potassium Chloride Carbon Dioxide Anion Gap BUN Creatinine Est GFR (CKD-EPI)AfAm Est GFR (CKD-EPI)NonAf POC Glucometer 112 Random Glucose Calcium Magnesium Total Bilirubin AST ALT Alkaline Phosphatase Creatine Kinase Troponin I B-Natriuretic Peptide Total Protein Albumin ASSESSMENT/PLAN: 74yo M with PMHx of polysubstance abuse (alcohol, cocaine, marihuana), ?afib not on eliquis, asthma vs COPD, DM, HLD, DIDI who presented form [facility] with SOB. ED course was remarkable for RR 22 sat 93-97% on 3L NC, BNP 362.7, and EKG showing first degree AV block with frequent PVCs, RBBB, L anterior fascicular block. Patient was admitted for treatment of COPD vs CHF exacerbation. #SOB --CHFe vs COPDe ---symptomatic improvement after duonebs, albuterol, lasix. Though less likely CHF - BNP 362.7 - CXR: no formal read, but imagings showing possible pulmonary congestion - CT chest: moderate emphysema, predominantly in upper lobes - Echo --pending - duonebs scheduled(when COVID neg), albuterol scheduled, symbicort - counseling department chair on tobacco cessation - Pulmonary Consult(Pan) - Cardio consult(Gitig) #prolonged QTc #frequent PVCs - EKG: PVCs, RBBC, Left anterior fascicular block; QTc 477 - avoid QTc prolonging medications - Cardio consult(Gitig) #acute fall(in CT scanner) --likely mechanical vs acute intoxication - UDS --pending - CTH: neg skull fracture or intracranial hemorrhage. Nasal bridge fracture - CT cspine: moderate degenerative changes - fall precautions #nasal bone fracture --likely chronic -pt has deviated septum with no acute swelling, tenderness #alcohol withdrawal - patient appeared intoxicated, without tremors, hallucinations - librium protocol started - fall precautions #DVT PPX - lovenox #FEN - no standing fluids - replpete lytes PRN - sodium restricted diet #Dispo: continue monitoring patient in telemetry Family Medical History Family History: As Documented Visit type - Medication Review Med list reviewed for High Risk Meds patients 65 and older: No - Emergency Visit Emergency Visit: Yes ED Registration Date: 12/11/19 Care time: The patient presented to the Emergency Department on the above date and was hospitalized for further evaluation of their emergent condition. - New Patient This patient is new to me today: Yes Date on this admission: 12/13/19 - Critical Care Critical Care patient: No ATTENDING PHYSICIAN STATEMENT I saw and evaluated the patient. I reviewed the resident's note and discussed the case with the resident. I agree with the resident's findings and plan as documented. SUBJECTIVE: OBJECTIVE: ASSESSMENT AND PLAN:
[2019-12-11] MEDS: ALBUTEROL SO4 HFA INHALER IH SCH ×3 (06:39→18:39)
[2019-12-11 08:11] LABS: OPIATES, URI NEGATIVE ng/ml (CUTOFF=300); PHENCYCLIDINE,URINE NEGATIVE ng/ml (CUTOFF=25); URINE BARBITURATES NEGATIVE ng/ml (CUTOFF=200)
[2019-12-11 08:40] LABS: URINE AMPHETAMINES NEGATIVE ng/ml (CUTOFF=500)
[2019-12-11 08:41] LABS: METHADONE, UR NEGATIVE ng/ml (CUTOFF=300); URINE BENZODIAZEPINES NEGATIVE ng/ml (CUTOFF=200)
[2019-12-11 08:46] LABS: COCAINE, UR POSITIVE ng/ml (CUTOFF=300)
--- NOTE | 2019-12-11 09:37 | PN ---
Teaching Attending Note Name of Resident: Efren Goldstein ATTENDING PHYSICIAN STATEMENT I saw and evaluated the patient. I reviewed the resident's note and discussed the case with the resident. I agree with the resident's findings and plan as documented. SUBJECTIVE: comfortable with nad OBJECTIVE: Vital Signs Temperature 99.2 F 12/11/19 06:52 Pulse Rate 83 12/11/19 06:52 Respiratory Rate 24 H 12/11/19 06:52 Blood Pressure 126/93 12/11/19 06:52 O2 Sat by Pulse Oximetry (%) 98 12/11/19 06:52 PE:per resident's note CBCD WBC 7.9 K/mm3 (4.0-10.0) 12/10/19 22:00 RBC 5.16 M/mm3 (4.00-5.60) 12/10/19 22:00 Hgb 15.8 GM/dL (11.7-16.9) 12/10/19 22:00 Hct 48.2 % (35.4-49) 12/10/19 22:00 MCV 93.5 fl (80-96) 12/10/19 22:00 MCHC 32.7 g/dl (32.0-35.9) 12/10/19 22:00 RDW 17.1 % (11.9-15.9) H 12/10/19 22:00 Plt Count 122 K/MM3 (134-434) L 12/10/19 22:00 MPV 9.4 fl (7.5-11.1) 12/10/19 22:00 CMP Sodium 141 mmol/L (136-145) 12/10/19 22:00 Potassium 3.9 mmol/L (3.5-5.1) 12/10/19 22:00 Chloride 105 mmol/L (98-107) 12/10/19 22:00 Carbon Dioxide 27 mmol/L (21-32) 12/10/19 22:00 Anion Gap 9 MMOL/L (8-16) 12/10/19 22:00 BUN 14.1 mg/dL (7-18) 12/10/19 22:00 Creatinine 1.1 mg/dL (0.55-1.3) 12/10/19 22:00 Random Glucose 87 mg/dL (74-106) 12/10/19 22:00 Calcium 8.3 mg/dL (8.5-10.1) L 12/10/19 22:00 Total Bilirubin 0.3 mg/dL (0.2-1) 12/10/19 22:00 AST 27 U/L (15-37) 12/10/19 22:00 ALT 28 U/L (13-61) 12/10/19 22:00 Alkaline Phosphatase 87 U/L (45-117) 12/10/19 22:00 Total Protein 8.1 g/dl (6.4-8.2) 12/10/19 22:00 Albumin 3.6 g/dl (3.4-5.0) 12/10/19 22:00 CARDIAC ENZYMES Creatine Kinase 80 U/L (26-308) 12/10/19 22:00 Troponin I 0.02 ng/ml (0.00-0.05) 12/10/19 22:00 Current Medications Generic Name Dose Route Start Last Admin Trade Name Freq PRN Reason Stop Dose Admin Albuterol Sulfate 2 puff 12/11/19 06:15 12/11/19 06:39 Ventolin Hfa Inhaler - IH 2 puff Q6H VONNIE Administration Albuterol/Ipratropium 1 amp 12/11/19 05:23 Duoneb - NEB Q6H PRN SHORTNESS OF BREATH Budesonide/Formoterol Fumarate 2 puff 12/11/19 10:00 Symbicort 80/4.5mcg - IH BID VONNIE Chlordiazepoxide HCl 25 mg 12/11/19 05:00 12/11/19 06:13 Librium - PO 12/11/19 21:01 25 mg Q8H VONNIE Administration Chlordiazepoxide HCl 10 mg 12/13/19 00:00 Librium - PO 12/13/19 23:59 Q12H PRN Signs/symptoms of Withdrawal Chlordiazepoxide HCl 10 mg 12/11/19 05:14 Librium - PO 12/12/19 23:59 Q8H PRN Signs/symptoms of Withdrawal Chlordiazepoxide HCl 15 mg 12/12/19 05:00 Librium - PO 12/12/19 21:01 Q8H VONNIE Chlordiazepoxide HCl 10 mg 12/13/19 05:00 Librium - PO 12/13/19 21:01 Q8H VONNIE Chlordiazepoxide HCl 10 mg 12/14/19 05:00 Librium - PO 12/14/19 05:01 ONCE ONE Enoxaparin Sodium 40 mg 12/11/19 10:00 Lovenox - SQ DAILY [facility] Folic Acid 1 mg 12/11/19 10:00 Folic Acid - PO DAILY [facility] Furosemide 20 mg 12/11/19 10:00 Lasix Injection - IVPUSH DAILY [facility] Multivitamins/Minerals/Vitamin C 1 tab 12/11/19 10:00 Tab-A-Vit - PO DAILY [facility] Home Medications Medication Instructions Recorded Albuterol Sulfate [Albuterol PRN 12/10/19 Sulfate Hfa] Atorvastatin Ca [Lipitor] 40 mg PO HS 12/10/19 Gabapentin [Neurontin] 100 mg PO TID 12/10/19 Lisinopril 30 mg PO DAILY 12/10/19 Metformin HCl [Glucophage] 1,000 mg PO DAILY 12/10/19 Spiriva 12/10/19 CT Chest: FINDINGS: There is no aortic aneurysm. There is no significant mediastinal or hilar adenopathy. The heart size is normal. The trachea and bronchi are patent. There is no pleural or pericardial effusion. Moderate emphysema is noted, predominating in the upper lobes. The lungs are clear with a minimal linear atelectasis. The upper abdominal structures are normal. IMPRESSION: Moderate emphysema. noncontrast head CT scan but shows nasal bridge fracture without skull fracture or intracranial hemorrhage. CT scan of C-spine shows "moderate degenerative change with mild degenerative listheses. No fracture or prevertebral soft tissue edema." No DVT low lower extremities noted on vascular sudy. EKG shows NSR at 72/minute, 1o AV block, RBBB, LAFB, PVCs and QTc [address]-T wave changes. ASSESSMENT AND PLAN: This patient is a 74yom with a PMHx Afib on Eliquis ( but not taking it), HTN, COPD, CHF, Polysubstance abuse (Alcohol, Cocaine, Marijuana), DIDI, NIDDM and HLD sent from [facility] for SOB and leg swelling. #Acute daistolic CHF exacerbation : Lasix IV 20mg daily #Acute COPD exacerbation on IV steroid, pulm on the case #Polysubstance abuse: on Librium protocol #Afib with rate controlled #T2DM SS with coverage # Hypertension on Lasix and lisinopril DVT prophylaxis - Lovenox 40 mg SQ q 24 hours. Full code
[2019-12-11 09:59] LABS: BASO % 0.3 % (0-2.0); EOS % 2.9 % (0-4.5); HEMATOCRIT 46.7 % (35.4-49); HEMOGLOBIN 15.1 GM/dL (11.7-16.9); LYMPH % 30.9 % (8-40); MCH 30.1 pg (25.7-33.7); MCHC 32.3 g/dl (32.0-35.9); MEAN CELL VOLUME 93.2 fl (80-96); MEAN PLT VOLUME 9.2 fl (7.5-11.1); MONO % 8.5 % (3.8-10.2); NEUT % 57.4 % (42.8-82.8); PLATELET COUNT 111 K/MM3 (134-434); RDW 16.6 % (11.9-15.9); WHITE BLOOD COUNT 8.1 K/mm3 (4.0-10.0)
[2019-12-11] MEDS ORDERED: ENOXAPARIN NA (PORCINE) 40 MG/0.4 ML DISP.SYRIN SQ SCH (10:00)
[2019-12-11] MEDS ORDERED: FUROSEMIDE 40 MG/4 ML INJECTABLE VIAL IVPUSH SCH (10:00)
[2019-12-11] MEDS ORDERED: FOLIC ACID 1 MG TABLET (FP) PO SCH (10:00)
[2019-12-11] MEDS ORDERED: MULTIVITAMINS (DAILY MVI) TABLET (FP) PO SCH (10:00)
--- NOTE | 2019-12-11 10:34 | ECHO ---
Version: 1 Name: DELORES BRAVO Exam: Adult Echocardiogram Study Date: 12/11/2019, 8:28 AM Age: 74 Years MMode/2D Measurements & Calculations IVSd: 1.66 cm LVIDs: 4.6 cm LVIDd: 5.4 cm LVPWd: 1.14 cm ACS: 2.34 cm Ao root diam: 3.7 cm LVOT diam: 2.28 cm LA dimension: 3.6 cm Doppler Measurements & Calculations MV E max alberto: 65.5 cm/sec MV V2 max: 69.2 cm/sec MV A max alberto: 82.0 cm/sec MV max P.92 mmHg MV mean P.79 mmHg MV E/A: 0.80 Ao max P.2 mmHg Ao V2 max: 124.9 cm/sec Procedure The study was technically difficult with many images being suboptimal in quality. Left Ventricle Due to the poor quality of the echocardiogram, an assessment of left ventricular ejection fraction c annot be made. Suggest outpatient contrast echo for assessment of wall motion and ejection fraction. The christensen smitral spectral Doppler flow pattern is suggestive of impaired LV relaxation. Regional wall motion abnormal ities cannot be excluded due to limited visualization. Right Ventricle The right ventricle is grossly normal size. The right ventricular systolic function is grossly kavita l. Atria The left atrium is mildly dilated. Mitral Valve The mitral valve is grossly normal. There is no mitral valve stenosis. There is mild mitral regurgit ation. Tricuspid Valve The tricuspid valve is not well visualized, but is grossly normal. There is trace tricuspid regurgit ation. Aortic Valve The aortic valve opens well. No hemodynamically significant valvular aortic stenosis. No aortic regu rgitation is present. Pulmonic Valve The pulmonic valve is not well seen, but is grossly normal. There is no pulmonic valvular stenosis. Great Vessels Mild aortic root dilatation. Pericardium/Pleura There is no pericardial effusion. Tech Comments Technically Difficult study due to body habitus. patient also non compliant in staying still. Summary Statements The study was technically difficult with many images being suboptimal in quality. Regional wall motion abnormalities cannot be excluded due to limited visualization. Due to the poor quality of the echocardiogram, an assessment of left ventricular ejection fraction c annot be made. Suggest outpatient contrast echo for assessment of wall motion and ejection fraction. The right ventricle is grossly normal size. The right ventricular systolic function is grossly normal. The left atrium is mildly dilated. The transmitral spectral Doppler flow pattern is suggestive of impaired LV relaxation. There is mild mitral regurgitation. Mild aortic root dilatation. There is no pericardial effusion. MD Valdovinos *Armida 12/11/2019, 10:33 AM Ordering Physician: Maddy Reddy Referring Physician: MADDY REDDY Performed By: Mike Alonzo
[2019-12-11 10:35] LABS: BLOOD UREA NITROGEN 11.3 mg/dL (7-18); CALCIUM 8.4 mg/dL (8.5-10.1); CREATININE 0.9 mg/dL (0.55-1.3); MAGNESIUM 2.2 mg/dL (1.8-2.4); PHOSPHOROUS 3.6 mg/dL (2.5-4.9); POTASSIUM 3.9 mmol/L (3.5-5.1)
[2019-12-11] MEDS ORDERED: MULTIVITAMINS (DAILY MVI) TABLET (FP) ONE (11:04)
[2019-12-11] MEDS ORDERED: FOLIC ACID 1 MG TABLET (FP) ONE (11:04)
[2019-12-11] MEDS ORDERED: FUROSEMIDE 40 MG/4 ML INJECTABLE VIAL ONE (11:05)
[2019-12-11] MEDS ORDERED: ENOXAPARIN NA (PORCINE) 40 MG/0.4 ML DISP.SYRIN SQ ONE (11:05)
--- NOTE | 2019-12-11 11:53 | PN ---
Progress Note (short form) - Note Progress Note: PULMONARY CONSULTATION DICTATED 12/11/19 IMP ACUTE HYPOXEMIC/HYPERCAPNEIC RESPIRATORY FAILURE COPD WITH ACUTE EXACERBATION A-FIB POLYSUBSTANCE ABUSE S/P MECHANICAL FALL DM H/O DIDI HLD THROMBOCYTOPENIA PLAN SUPPLEMENTAL O2 INHALED BRONCHODILATORS MEDROL ABG RATE CONTROL MONITOR LYTES,PLT CT DR MORGAN Problem List - Problems (1) Acute respiratory failure with hypoxia and hypercarbia Code(s): J96.01 - ACUTE RESPIRATORY FAILURE WITH HYPOXIA; J96.02 - ACUTE RESPIRATORY FAILURE WITH HYPERCAPNIA (2) Dyspnea Code(s): R06.00 - DYSPNEA, UNSPECIFIED (3) Cocaine dependence, uncomplicated Code(s): F14.20 - COCAINE DEPENDENCE, UNCOMPLICATED (4) Diabetes Code(s): E11.9 - TYPE 2 DIABETES MELLITUS WITHOUT COMPLICATIONS (5) HLD (hyperlipidemia) Code(s): E78.5 - HYPERLIPIDEMIA, UNSPECIFIED (6) Non-compliance Code(s): Z91.19 - PATIENT'S NONCOMPLIANCE W OTH MEDICAL TREATMENT AND REGIMEN (7) Obesity (BMI 30-39.9) Code(s): E66.9 - OBESITY, UNSPECIFIED (8) Sleep apnea Code(s): G47.30 - SLEEP APNEA, UNSPECIFIED (9) COPD (chronic obstructive pulmonary disease) Code(s): J44.9 - CHRONIC OBSTRUCTIVE PULMONARY DISEASE, UNSPECIFIED (10) Thrombocytopenia Code(s): D69.6 - THROMBOCYTOPENIA, UNSPECIFIED
--- NOTE | 2019-12-11 12:06 | PN ---
Physical Exam: SUBJECTIVE: Patient seen and examined this morning in the ED, obese ptn, vaguely alert, possibly 2/2 Librium dose given for alcohol withdrawal, in no acute distress, exhibiting no tremors, not diaphoretic. Denies any CP, SoB, DEVLIN, blurry vision OBJECTIVE: Vital Signs Period Temp Pulse Resp BP Sys/Valencia Pulse Ox Last 24 Hr 97.9 F-99.2 F 73-83 20-24 122-150/63-96 2-99 GENERAL: The patient is awake, alert. Not fully oriented, or conversational. HEAD: Normal with no signs of trauma. EYES: PERRLA, unable to examine extraoccular muscles 2/2 AMS. ENT: oropharynx clear without exudates, moist mucous membranes. NECK: Trachea midline, full range of motion, supple. LUNGS: Body habitus limits exam, Breath sounds equal, clear to auscultation bilaterally HEART: Body habitus limits exam Regular rate and rhythm, S1, S2 without murmur, rub or gallop. ABDOMEN: Soft, nontender, nondistended, normoactive bowel sounds EXTREMITIES: B/L LE Peripheral Vascular Disease w/ chronic venous stasis. 2+ pulses, warm NEUROLOGICAL: Abnormal slurred speech, gait not observed. PSYCH: AMS 2/2 Librium or possible baseline, will reassess SKIN: Warm, dry, normal turgor, no rashes or lesions noted, except as otherwise noted above Laboratory Results - last 24 hr CBC, BMP 12/11/19 09:39 12/11/19 09:39 Active Medications Generic Name Dose Route Start Last Admin Trade Name Freq PRN Reason Stop Dose Admin Acetaminophen 1,000 mg 12/11/19 17:30 Ofirmev Injection - IVPB Q6H PRN PAIN LEVEL 1-5 Albuterol Sulfate 2 puff 12/11/19 06:15 12/11/19 18:39 Ventolin Hfa Inhaler - IH 2 puff Q6H VONNIE Administration Albuterol/Ipratropium 1 amp 12/11/19 05:23 Duoneb - NEB Q6H PRN SHORTNESS OF BREATH Aspirin 81 mg 12/12/19 10:00 Asa - PO DAILY VONNIE Budesonide/Formoterol Fumarate 2 puff 12/11/19 10:00 12/11/19 13:00 Symbicort 80/4.5mcg - IH 2 inh BID VONNIE Administration Chlordiazepoxide HCl 25 mg 12/11/19 05:00 12/11/19 16:45 Librium - PO 12/11/19 21:01 25 mg Q8H VONNIE Administration Chlordiazepoxide HCl 10 mg 12/13/19 00:00 Librium - PO 12/13/19 23:59 Q12H PRN Signs/symptoms of Withdrawal Chlordiazepoxide HCl 10 mg 12/11/19 05:14 Librium - PO 12/12/19 23:59 Q8H PRN Signs/symptoms of Withdrawal Chlordiazepoxide HCl 15 mg 12/12/19 05:00 Librium - PO 12/12/19 21:01 Q8H VONNIE Chlordiazepoxide HCl 10 mg 12/13/19 05:00 Librium - PO 12/13/19 21:01 Q8H VONNIE Chlordiazepoxide HCl 10 mg 12/14/19 05:00 Librium - PO 12/14/19 05:01 ONCE ONE Enoxaparin Sodium 40 mg 12/11/19 10:00 12/11/19 10:50 Lovenox - SQ 40 mg DAILY VONNIE Administration Folic Acid 1 mg 12/11/19 10:00 12/11/19 10:50 Folic Acid - PO 1 mg DAILY VONNIE Administration Furosemide 20 mg 12/11/19 10:00 12/11/19 10:50 Lasix Injection - IVPUSH 20 mg DAILY VONNIE Administration Lisinopril 20 mg 12/12/19 10:00 Prinivil PO DAILY [facility] Multivitamins/Minerals/Vitamin C 1 tab 12/11/19 10:00 12/11/19 10:50 Tab-A-Vit - PO 1 tab DAILY VONNIE Administration ASSESSMENT/PLAN: 74yo M with PMHx of polysubstance abuse including alcohol (4 drinks/day), cocaine, marijuana last used 2 days before admission, afib not on eliquis (non- compliant), 1st degree AV Block, LBBB, RBBB, questionable afib not on eliquis, obstructive lung disease, NIDDM, HLD, and DIDI presented from [facility] with SOB. While in the ED ptn had an EKG showing first degree AV block with frequent PVCs, RBBB, L anterior fascicular block. Additionally had a mechanical fall while going for CT, not related to intoxication. FU imaging showed no pathology from the event Acute on Chronic COPD/Asthma Exacerbation -Hx of Prior Hospitalization for asthma/copd exacerbation -Previously intubated per patient -Extensive Smoking hx: 2PPD > 25 years -CT Chest: Moderate Emphysema upper lobes b/l -C/W Symbicort -C/W Duonebs -C/W Albuterol Acute on Chronic Diastolic CHF Exacerbation -Per Cardiology: Does not need Telemetry, likely COPD exacerbation -Negative Troponins -BNP <400 -ECHO (12/10): EF unable to be determined; Impaired left ventricular dilation; mild left atrial dilation -Doppler: Negative for DVT b/l -Lasix IV 20mg qdaily for fluid overload -Monitor BP -Monitor I/Os Polysubstance Abuse -Hx of Alcohol, Cocaine, Marijuana, Nicotine Abuse -Last Drink & Cocaine 2 days ago -Drinks 4 shots/nips per day -Previously Seen at [facility] -Librium protocol - Currently refusing Librium -Monitor for DTs Mechanical Fall While Going for CT Scan -No evidence of acute pathology on imaging following the fall -Monitor Neuro status Atrial Fibrillation -Per Cardiology now in Sinus Rhythm -Monitor for palpitation Non Insulin Dependent Diabetes Mellitus -FU HBa1c -ISS -Blood Glucose Checks Hypertension -Monitor BP -C/w Lasix -C/w Lisinopril l PPx DVT: Lovenox 40 GI: None Visit type - Emergency Visit Emergency Visit: Yes ED Registration Date: 12/11/19 Care time: The patient presented to the Emergency Department on the above date and was hospitalized for further evaluation of their emergent condition. - New Patient This patient is new to me today: Yes Date on this admission: 12/11/19 - Critical Care Critical Care patient: No - Discharge Referral Referred to [facility] Med P.C.: No - Medication Review Med list reviewed for High Risk Meds patients 65 and older: Yes ATTENDING PHYSICIAN STATEMENT I saw and evaluated the patient. I reviewed the resident's note and discussed the case with the resident. I agree with the resident's findings and plan as documented. SUBJECTIVE: OBJECTIVE: ASSESSMENT AND PLAN:
[2019-12-11] MEDS: BUDESONIDE/FORMETEROL FUMARATE 80/4.5 mcg INHALER IH SCH ×2 (13:00→22:13)
--- NOTE | 2019-12-11 15:01 | CONS ---
DATE OF CONSULTATION: 12/11/2019 REFERRING PHYSICIAN: Anmol Patel MD CHIEF COMPLAINT/HISTORY OF PRESENT ILLNESS: The patient is a 74-year-old male with past medical history of atrial fibrillation on Eliquis, but not been taking it for at least a month, asthma/COPD, hypertension, hyperlipidemia, obstructive sleep apnea, polysubstance abuse, sent from detox to [facility] ER for shortness of breath. Patient states that he has been having increasing shortness of breath and orthopnea. He also complained of lower extremity pain and swelling. On admission, he was complaining of shortness of breath and wheezing, noted to be hypoxic, which he was placed on supplemental O2. Patient underwent a CT scan of the chest which revealed no evidence of acute pathology. Findings were consistent with moderate-severe central lobular emphysema in the upper lobes. The patient was evaluated by cardiology, who felt that the patient most likely had COPD exacerbation. He was placed on inhaled bronchodilators as well as 1 dose of Lasix. Of note, this patient's venous blood gas revealed evidence of acute hypercapnia with a PCO2 of 56 and a pH 7.32. No ABG was performed. PAST MEDICAL HISTORY: Again includes polysubstance abuse, atrial fibrillation, COPD, asthma, diabetes, hypertension, hyperlipidemia, obstructive sleep apnea. REVIEW OF SYSTEMS: Positive shortness of breath. No chest pain, no palpitations, no cough. Has lower extremity edema. SOCIAL HISTORY: Positive tobacco. Positive substance abuse. No occupational exposure to chemicals or fumes. PHYSICAL EXAMINATION: General: The patient is an obese male, awake, alert, no acute distress. Vital Signs: He is afebrile. Blood pressure is 122/96. Respiratory rate is 24. O2 saturation is 98% on 2 L nasal cannula. HEENT: Exam is normocephalic, atraumatic. Neck: Supple. Heart: Irregularly irregular, S1, S2. Chest: Scattered bilateral wheezes. Abdomen: Soft. Bowel sounds are positive. Extremities: Bilateral lower extremity edema. LABORATORY: WBCs 8.1, hemoglobin 15.1, hematocrit 46.7, with a platelet count of 111,000. BUN 11, creatinine 0.3. BNP is 362. Cocaine is positive. His COVID is pending. Chest CT: COPD changes. IMPRESSION: 1. Acute hypoxemic hypercapnic respiratory failure secondary to likely chronic obstructive pulmonary disease with acute exacerbation. 2. Atrial fibrillation. 3. Polysubstance abuse. 4. Status post mechanical fall. 5. Diabetes. 6. History of obstructive sleep apnea. 7. Hyperlipidemia. PLAN: Supplemental O2, inhaled bronchodilators, short course of Medrol. Check arterial blood gas. Rate control as per Cardiology. Monitor electrolytes as well as platelet count. JON MORGAN M.D. [id number] MTDD
[2019-12-11 15:39] LABS: ARTERIAL BLOOD GAS PO2 69.4 mmHg (80-100); ARTERIAL BLOOD GAS pH 7.418 (7.350-7.450)
[2019-12-11 15:40] LABS: ALLENS TEST POSITIVE
[2019-12-11] MEDS ORDERED: ALBUTEROL SO4 HFA INHALER IH ONE (15:40)
[2019-12-11] MEDS ORDERED: ACETAMINOPHEN 1000 MG/100 ML VIAL (NON FORMULARY) IVPB PRN (17:30)
[2019-12-11] MEDS ORDERED: INSULIN (NOVOLOG) ASPART 100 UNITS/ML 10ML VIAL ONE (21:42)
[2019-12-11] MEDS: INSULIN SLIDING SCALE (NOVOLOG) 1 VIAL SQ SCH (22:13)
[2019-12-12] MEDS: ALBUTEROL SO4 HFA INHALER IH SCH ×4 (02:14→17:49)
[2019-12-12] MEDS ORDERED: chlordiazePOXIDE 5 MG CAPSULE PO SCH (05:00)
[2019-12-12] MEDS: INSULIN SLIDING SCALE (NOVOLOG) 1 VIAL SQ SCH ×4 (06:35→21:42)
[2019-12-12] MEDS ORDERED: chlordiazePOXIDE HCL 10 MG CAPSULE PO PRN (07:05)
[2019-12-12 08:49] LABS: BASO % 0.3 % (0-2.0); EOS % 4.3 % (0-4.5); HEMATOCRIT 45.2 % (35.4-49); HEMOGLOBIN 14.6 GM/dL (11.7-16.9); LYMPH % 35.3 % (8-40); MCH 30.2 pg (25.7-33.7); MCHC 32.4 g/dl (32.0-35.9); MEAN CELL VOLUME 93.2 fl (80-96); MEAN PLT VOLUME 9.7 fl (7.5-11.1); MONO % 8.2 % (3.8-10.2); NEUT % 51.9 % (42.8-82.8); PLATELET COUNT 117 K/MM3 (134-434); RBC 4.85 M/mm3 (4.00-5.60); RDW 16.7 % (11.9-15.9); WHITE BLOOD COUNT 6.6 K/mm3 (4.0-10.0)
[2019-12-12 09:09] LABS: ALBUMIN 3.1 g/dl (3.4-5.0); BILIRUBIN,TOTAL 0.5 mg/dL (0.2-1); BLOOD UREA NITROGEN 11.8 mg/dL (7-18); CALCIUM 8.1 mg/dL (8.5-10.1); CREATININE 0.9 mg/dL (0.55-1.3); POTASSIUM 3.7 mmol/L (3.5-5.1)
[2019-12-12] MEDS ORDERED: BUDESONIDE/FORMETEROL FUMARATE 80/4.5 mcg INHALER IH SCH (10:00)
--- NOTE | 2019-12-12 10:00 | PN ---
Progress Note, Physician Chief Complaint: more alert screaming for breakfast No CP/palps/dizziness echo yesterday extremely technically difficult- EF could not be assessed, outpatient contrast echo recommended. Thoracic aorta mildly dilated. History of Present Illness: 74M Hx polysubstance abuse, COPD, AF noncompliant w AC, presents to ER for SOB and sustained a mechanical fall in ER with nasal fx. Chest CT showed COPD. BNP 367 Pt denies CP/palps/edema/pnd - Current Medication List Current Medications: Active Medications Acetaminophen (Ofirmev Injection -) 1,000 mg IVPB Q6H PRN PRN Reason: PAIN LEVEL 1-5 Albuterol Sulfate (Ventolin Hfa Inhaler -) 2 puff IH Q6H VONNIE Albuterol/Ipratropium (Duoneb -) 1 amp NEB Q6H PRN PRN Reason: SHORTNESS OF BREATH Aspirin (Asa -) 81 mg PO DAILY [facility] Budesonide/Formoterol Fumarate (Symbicort 80/4.5mcg -) 2 puff IH BID VONNIE Chlordiazepoxide HCl (Librium -) 10 mg PO ONCE ONE Stop: 12/14/19 05:01 Chlordiazepoxide HCl (Librium -) 10 mg PO Q12H PRN PRN Reason: Signs/symptoms of Withdrawal Stop: 12/13/19 23:59 Chlordiazepoxide HCl (Librium -) 10 mg PO Q8H PRN PRN Reason: Signs/symptoms of Withdrawal Stop: 12/12/19 23:59 Chlordiazepoxide HCl (Librium -) 15 mg PO Q8H [facility] Stop: 12/12/19 21:01 Chlordiazepoxide HCl (Librium -) 10 mg PO Q8H [facility] Stop: 12/13/19 21:01 Enoxaparin Sodium (Lovenox -) 40 mg SQ DAILY [facility] Folic Acid (Folic Acid -) 1 mg PO DAILY [facility] Furosemide (Lasix Injection -) 20 mg IVPUSH DAILY [facility] Insulin Aspart (Novolog Vial Sliding Scale -) 1 vial SQ ACHS [facility]; Protocol Last Admin: 12/12/19 06:35 Dose: Not Given Documented by: Lisinopril (Prinivil) 20 mg PO DAILY [facility] Multivitamins/Minerals/Vitamin C (Tab-A-Vit -) 1 tab PO DAILY [facility] - Objective Vital Signs: Vital Signs Temperature 98.6 F 12/12/19 06:42 Pulse Rate 96 H 12/12/19 06:42 Respiratory Rate 18 12/12/19 06:42 Blood Pressure 116/64 12/12/19 06:42 O2 Sat by Pulse Oximetry (%) 97 12/12/19 06:42 Constitutional: Yes: No Distress, Calm Cardiovascular: Yes: Regular Rate and Rhythm Respiratory: Yes: Other (bilaterally decreased breath sounds diffusely; no rales or active wheezing) Gastrointestinal: Yes: Soft (nt), Abdomen, Obese Edema: No Neurological: Yes: Alert, Oriented ...Motor Strength: WNL Labs: CBC, BMP 12/12/19 07:14 12/12/19 07:14 Laboratory Tests 12/12/19 12/12/19 07:14 07:14 WBC 6.6 Hgb 14.6 Plt Count 117 L Sodium 139 Potassium 3.7 Creatinine 0.9 Assessment/Plan IMP: Polysubstance abuse PAF, nonadherent with AC Chronic COPD with acute exacerbation Mechanical fall, nasal fracture REC: 1. Polysub abuse: -Librium taper as per primary team -Rehab upon discharge 2. PAF: documented PAF, now in normal sinus rhythm -per reports non compliant w/ AC -Patient does not seem to be safe candidate for full AC -low dose aspirin started, the safer option in this case. -Outpatient eval for suspected DIDI 3. AECOPD: -cont nebs/supp O2 -Pulm eval pending -Do not suspect sig component CHF given clear lung exam and BNP < 400, TnI negative. -Reasonable to give trial Lasix for 24-48 hours 4. [facility] fall: -falls precations recommended -Not ideal candidate for full AC 5. RBBB/LAHB: -Outpt cardiology f/u 6. Dilated aorta: mild -Smoking cessation -Drug cessation -Cont Lisinopril for target BP < 140/90 -Hesitant to use beta darby here with sig COPD (potential for bronchospasm) and + COCAINE USE (unopposed alpha effect can precipitate malignant h ypertension) -recommend outpatient contrast echo for EF assessment and yearly for aorta -Consider CT chest as inpatient for additional imaging of aortic diameter
[2019-12-12] MEDS ORDERED: PT OWN MED DRAWER 7, Y5N ONE (10:12)
--- NOTE | 2019-12-12 10:13 | EKG ---
Test Reason : Blood Pressure : / mmHG Vent. Rate : 092 BPM Atrial Rate : 092 BPM P-R Int : 272 ms QRS Dur : 146 ms QT Int : 400 ms P-R-T Axes : 076 -82 056 degrees QTc Int : 494 ms SINUS RHYTHM WITH 1ST DEGREE A-V BLOCK WITH FREQUENT and consecutive PREMATURE VENTRICULAR COMPLEXES RIGHT BUNDLE BRANCH BLOCK LEFT ANTERIOR FASCICULAR BLOCK BIFASCICULAR BLOCK ABNORMAL ECG WHEN COMPARED WITH ECG OF 10-DEC-2019 21:54, NO SIGNIFICANT CHANGE WAS FOUND Confirmed by AMRIK CHI MD ([id number]) on 12/12/2019 10:12:48 AM Referred By: Parmjit COBB Confirmed By:AMRIK CHI MD
[2019-12-12] MEDS: LISINOPRIL 20 MG TABLET (FP) PO SCH (10:22)
[2019-12-12] MEDS: FOLIC ACID 1 MG TABLET (FP) PO SCH (10:22)
[2019-12-12] MEDS: MULTIVITAMINS (DAILY MVI) TABLET (FP) PO SCH (10:22)
[2019-12-12] MEDS: ASPIRIN 81 MG CHEWABLE TABLETS PO SCH (10:22)
[2019-12-12] MEDS: FUROSEMIDE 40 MG/4 ML INJECTABLE VIAL IVPUSH SCH (10:23)
[2019-12-12] MEDS: ENOXAPARIN NA (PORCINE) 40 MG/0.4 ML DISP.SYRIN SQ SCH (10:23)
--- NOTE | 2019-12-12 12:40 | PN ---
Progress Note (short form) - Note Progress Note: PULMONARY States breathing is improving but the Symbicort makes him cough without the spacer. Vital Signs Period Temp Pulse Resp BP Sys/Valencia Pulse Ox Last 24 Hr 98.0 F-98.6 F 70-96 18-24 116-152/64-94 96-100 Gen: NAD at rest Heart: RRR Lung: decreased breath sounds at the bases Abd: soft, nontender Ext: no edema CBC, BMP 12/12/19 07:14 12/12/19 07:14 Active Medications Acetaminophen (Ofirmev Injection -) 1,000 mg IVPB Q6H PRN PRN Reason: PAIN LEVEL 1-5 Albuterol Sulfate (Ventolin Hfa Inhaler -) 2 puff IH Q6H [facility] Albuterol/Ipratropium (Duoneb -) 1 amp NEB Q6H PRN PRN Reason: SHORTNESS OF BREATH Aspirin (Asa -) 81 mg PO DAILY [facility] Last Admin: 12/12/19 10:22 Dose: 81 mg Documented by: Budesonide/Formoterol Fumarate (Symbicort 80/4.5mcg -) 2 puff IH BID [facility] Last Admin: 12/12/19 10:23 Dose: 2 puff Documented by: Chlordiazepoxide HCl (Librium -) 10 mg PO ONCE ONE Stop: 12/14/19 05:01 Chlordiazepoxide HCl (Librium -) 10 mg PO Q12H PRN PRN Reason: Signs/symptoms of Withdrawal Stop: 12/13/19 23:59 Chlordiazepoxide HCl (Librium -) 10 mg PO Q8H PRN PRN Reason: Signs/symptoms of Withdrawal Stop: 12/12/19 23:59 Chlordiazepoxide HCl (Librium -) 15 mg PO Q8H [facility] Stop: 12/12/19 21:01 Chlordiazepoxide HCl (Librium -) 10 mg PO Q8H [facility] Stop: 12/13/19 21:01 Enoxaparin Sodium (Lovenox -) 40 mg SQ DAILY [facility] Last Admin: 12/12/19 10:23 Dose: 40 mg Documented by: Folic Acid (Folic Acid -) 1 mg PO DAILY [facility] Last Admin: 12/12/19 10:22 Dose: 1 mg Documented by: Furosemide (Lasix Injection -) 20 mg IVPUSH DAILY [facility] Last Admin: 12/12/19 10:23 Dose: 20 mg Documented by: Insulin Aspart (Novolog Vial Sliding Scale -) 1 vial SQ ACHS [facility]; Protocol Last Admin: 12/12/19 12:21 Dose: Not Given Documented by: Lisinopril (Prinivil) 20 mg PO DAILY [facility] Last Admin: 12/12/19 10:22 Dose: 20 mg Documented by: Multivitamins/Minerals/Vitamin C (Tab-A-Vit -) 1 tab PO DAILY [facility] Last Admin: 12/12/19 10:22 Dose: 1 tab Documented by: A/P Acute COPD Exacerbation Polysubstance Abuse Atrial Fibrillation Hyperlipidemia DIDI Thrombocytopenia HTN DM - will hold off on symbicort - short course of medrol - inhaled bronchodilators - O2 to keep Spo2 >90% - DVT prophylaxis
[2019-12-12] MEDS: methylPREDNISolone NA SUCC 40 MG/1 ML VIAL IVPUSH SCH ×2 (14:30→17:44)
[2019-12-12] MEDS: chlordiazePOXIDE 5 MG CAPSULE PO SCH ×2 (14:30→21:42)
--- NOTE | 2019-12-12 19:49 | PN ---
Progress Note (short form) - Note Progress Note: patient is comfortable,daughter at bedside Vital Signs Temperature 98.7 F 12/12/19 18:20 Pulse Rate 88 12/12/19 18:20 Respiratory Rate 20 12/12/19 18:20 Blood Pressure 134/70 12/12/19 18:20 O2 Sat by Pulse Oximetry (%) 95 12/12/19 18:29 GENERAL: The patient is awake, alert, and fully oriented, in no acute distress. HEAD: Normal with no signs of trauma. EYES: PERRL, extraocular movements intact, sclera anicteric, conjunctiva clear. ENT: Ears normal, oropharynx clear without exudates, moist mucous membranes. NECK: Trachea midline, full range of motion, supple. LUNGS: Breath sounds equal, clear to auscultation bilaterally, no wheezes, no crackles, no accessory muscle use. HEART: Regular rate and rhythm, S1, S2 without murmur, rub or gallop. ABDOMEN: Soft, nontender, nondistended, normoactive bowel sounds, no guarding, no rebound, no hepatosplenomegaly, no masses. EXTREMITIES: 2+ pulses, warm, well-perfused, no edema. NEUROLOGICAL: Cranial nerves II through XII grossly intact. Normal speech, gait not observed. PSYCH: Normal mood, normal affect. SKIN: Warm, dry, normal turgor, no rashes or lesions noted CBCD WBC 6.6 K/mm3 (4.0-10.0) 12/12/19 07:14 RBC 4.85 M/mm3 (4.00-5.60) 12/12/19 07:14 Hgb 14.6 GM/dL (11.7-16.9) 12/12/19 07:14 Hct 45.2 % (35.4-49) 12/12/19 07:14 MCV 93.2 fl (80-96) 12/12/19 07:14 MCHC 32.4 g/dl (32.0-35.9) 12/12/19 07:14 RDW 16.7 % (11.9-15.9) H 12/12/19 07:14 Plt Count 117 K/MM3 (134-434) L 12/12/19 07:14 MPV 9.7 fl (7.5-11.1) 12/12/19 07:14 CMP Sodium 139 mmol/L (136-145) 12/12/19 07:14 Potassium 3.7 mmol/L (3.5-5.1) 12/12/19 07:14 Chloride 103 mmol/L (98-107) 12/12/19 07:14 Carbon Dioxide 30 mmol/L (21-32) 12/12/19 07:14 Anion Gap 6 MMOL/L (8-16) L 12/12/19 07:14 BUN 11.8 mg/dL (7-18) 12/12/19 07:14 Creatinine 0.9 mg/dL (0.55-1.3) 12/12/19 07:14 Random Glucose 114 mg/dL (74-106) H 12/12/19 07:14 Calcium 8.1 mg/dL (8.5-10.1) L 12/12/19 07:14 Total Bilirubin 0.5 mg/dL (0.2-1) 12/12/19 07:14 AST 20 U/L (15-37) 12/12/19 07:14 ALT 21 U/L (13-61) 12/12/19 07:14 Alkaline Phosphatase 70 U/L (45-117) 12/12/19 07:14 Total Protein 7.0 g/dl (6.4-8.2) 12/12/19 07:14 Albumin 3.1 g/dl (3.4-5.0) L 12/12/19 07:14 CARDIAC ENZYMES Creatine Kinase 80 U/L (26-308) 12/10/19 22:00 Troponin I 0.02 ng/ml (0.00-0.05) 12/10/19 22:00 Current Medications Generic Name Dose Route Start Last Admin Trade Name Freq PRN Reason Stop Dose Admin Acetaminophen 1,000 mg 12/11/19 17:30 Ofirmev Injection - IVPB Q6H PRN PAIN LEVEL 1-5 Albuterol Sulfate 2 puff 12/12/19 12:15 12/12/19 17:49 Ventolin Hfa Inhaler - IH 2 puff Q6H VONNIE Administration Albuterol/Ipratropium 1 amp 12/12/19 07:05 Duoneb - NEB Q6H PRN SHORTNESS OF BREATH Aspirin 81 mg 12/12/19 10:00 12/12/19 10:22 Asa - PO 81 mg DAILY [facility]ONNIE Administration Chlordiazepoxide HCl 10 mg 12/14/19 05:00 Librium - PO 12/14/19 05:01 ONCE ONE Chlordiazepoxide HCl 10 mg 12/13/19 00:00 Librium - PO 12/13/19 23:59 Q12H PRN Signs/symptoms of Withdrawal Chlordiazepoxide HCl 10 mg 12/12/19 07:05 Librium - PO 12/12/19 23:59 Q8H PRN Signs/symptoms of Withdrawal Chlordiazepoxide HCl 15 mg 12/12/19 13:00 12/12/19 14:30 Librium - PO 12/12/19 21:01 15 mg Q8H VONNIE Administration Chlordiazepoxide HCl 10 mg 12/13/19 05:00 Librium - PO 12/13/19 21:01 Q8H VONNIE Enoxaparin Sodium 40 mg 12/12/19 10:00 12/12/19 10:23 Lovenox - SQ 40 mg DAILY [facility] Administration Folic Acid 1 mg 12/12/19 10:00 12/12/19 10:22 Folic Acid - PO 1 mg DAILY [facility] Administration Furosemide 20 mg 12/12/19 10:00 12/12/19 10:23 Lasix Injection - IVPUSH 20 mg DAILY [facility] Administration Insulin Aspart 1 vial 12/11/19 22:00 12/12/19 17:19 Novolog Vial Sliding Scale - SQ Not Given [facility] Protocol Lisinopril 20 mg 12/12/19 10:00 12/12/19 10:22 Prinivil PO 20 mg DAILY [facility] Administration Methylprednisolone Sodium Succinate 40 mg 12/12/19 12:45 12/12/19 17:44 Solu-Medrol - IVPUSH 40 mg Q8H-IV [facility] Administration Multivitamins/Minerals/Vitamin C 1 tab 12/12/19 10:00 12/12/19 10:22 Tab-A-Vit - PO 1 tab DAILY [facility] Administration Home Medications Medication Instructions Recorded Albuterol Sulfate [Albuterol 1 puff PO Q6H PRN 12/10/19 Sulfate Hfa] Atorvastatin Ca [Lipitor] 40 mg PO HS 12/10/19 Gabapentin [Neurontin] 100 mg PO TID 12/10/19 Lisinopril 30 mg PO DAILY 12/10/19 Metformin HCl [Glucophage] 1,000 mg PO DAILY 12/10/19 Spiriva 12/10/19 Aspirin [ASA -] 81 mg PO DAILY 12/11/19 Cyclobenzaprine HCl [Flexeril -] 10 mg PO TID 12/11/19 CT Chest: FINDINGS: There is no aortic aneurysm. There is no significant mediastinal or hilar adenopathy. The heart size is normal. The trachea and bronchi are patent. There is no pleural or pericardial effusion. Moderate emphysema is noted, predominating in the upper lobes. The lungs are clear with a minimal linear atelectasis. The upper abdominal structures are normal. IMPRESSION: Moderate emphysema. noncontrast head CT scan but shows nasal bridge fracture without skull fracture or intracranial hemorrhage. CT scan of C-spine shows "moderate degenerative change with mild degenerative listheses. No fracture or prevertebral soft tissue edema." No DVT low lower extremities noted on vascular sudy. EKG shows NSR at 72/minute, 1o AV block, RBBB, LAFB, PVCs and QTc [address]-T wave changes. ASSESSMENT AND PLAN: This patient is a 74yom with a PMHx Afib on Eliquis ( but not taking it), HTN, COPD, CHF, Polysubstance abuse (Alcohol, Cocaine, Marijuana), DIDI, NIDDM and HLD sent from [facility] for SOB and leg swelling. #Acute daistolic CHF exacerbation : Lasix IV 20mg daily #Acute COPD exacerbation on IV steroid, pulm on the case #Polysubstance abuse: on Librium protocol #Afib with rate controlled #T2DM SS with coverage # Hypertension on Lasix and lisinopril DVT prophylaxis - Lovenox 40 mg SQ q 24 hours. Full code Visit type - Emergency Visit Emergency Visit: Yes ED Registration Date: 12/11/19 Care time: The patient presented to the Emergency Department on the above date and was hospitalized for further evaluation of their emergent condition. - New Patient This patient is new to me today: Yes Date on this admission: 12/12/19 - Critical Care Critical Care patient: No - Discharge Referral Referred to [facility] Med P.C.: No - Medication Review Med list reviewed for High Risk Meds patients 65 and older: Yes
[2019-12-13] MEDS ORDERED: chlordiazePOXIDE HCL 10 MG CAPSULE PO PRN ×2
[2019-12-13] MEDS ORDERED: traMADol HCL 50 MG TABLET PO ONE (00:12)
[2019-12-13] MEDS: ALBUTEROL SO4 HFA INHALER IH SCH ×3 (01:09→11:43)
[2019-12-13] MEDS: methylPREDNISolone NA SUCC 40 MG/1 ML VIAL IVPUSH SCH ×3 (01:09→17:06)
[2019-12-13] MEDS ORDERED: chlordiazePOXIDE HCL 10 MG CAPSULE PO SCH (05:00)
[2019-12-13] MEDS: chlordiazePOXIDE HCL 10 MG CAPSULE PO SCH ×3 (05:27→21:02)
[2019-12-13] MEDS: INSULIN SLIDING SCALE (NOVOLOG) 1 VIAL SQ SCH ×4 (06:12→21:05)
[2019-12-13] MEDS: ENOXAPARIN NA (PORCINE) 40 MG/0.4 ML DISP.SYRIN SQ SCH (10:23)
[2019-12-13] MEDS: ASPIRIN 81 MG CHEWABLE TABLETS PO SCH (10:23)
[2019-12-13] MEDS: MULTIVITAMINS (DAILY MVI) TABLET (FP) PO SCH (10:23)
[2019-12-13] MEDS: LISINOPRIL 20 MG TABLET (FP) PO SCH (10:23)
[2019-12-13] MEDS: FOLIC ACID 1 MG TABLET (FP) PO SCH (10:23)
[2019-12-13] MEDS: FUROSEMIDE 40 MG/4 ML INJECTABLE VIAL IVPUSH SCH (10:23)
[2019-12-13 10:50] LABS: BASO % 0.1 % (0-2.0); HEMATOCRIT 46.1 % (35.4-49); HEMOGLOBIN 14.8 GM/dL (11.7-16.9); LYMPH % 11.8 % (8-40); MCH 29.9 pg (25.7-33.7); MEAN CELL VOLUME 93.6 fl (80-96); MEAN PLT VOLUME 9.5 fl (7.5-11.1); MONO % 3.9 % (3.8-10.2); NEUT % 84.2 % (42.8-82.8); PLATELET COUNT 121 K/MM3 (134-434); RBC 4.93 M/mm3 (4.00-5.60); RDW 16.3 % (11.9-15.9); WHITE BLOOD COUNT 8.5 K/mm3 (4.0-10.0)
[2019-12-13 11:08] LABS: ALBUMIN 3.1 g/dl (3.4-5.0); BILIRUBIN,TOTAL 0.2 mg/dL (0.2-1); BLOOD UREA NITROGEN 11.4 mg/dL (7-18); CALCIUM 8.4 mg/dL (8.5-10.1); MAGNESIUM 2.3 mg/dL (1.8-2.4); PHOSPHOROUS 2.2 mg/dL (2.5-4.9); POTASSIUM 4.4 mmol/L (3.5-5.1); TOT PROT 7.3 g/dl (6.4-8.2)
[2019-12-13] MEDS: ALBUTEROL SO4 2.5/IPRATROPIUM 0.5 INH SOL 3 ML VIAL.NEB. NEB PRN (11:17)
--- NOTE | 2019-12-13 11:47 | PN ---
Progress Note (short form) - Note Progress Note: PULMONARY States breathing is improving but still some dyspnea on exertion. Vital Signs Period Temp Pulse Resp BP Sys/Valencia Pulse Ox Last 24 Hr 98.3 F-98.7 F 76-88 16-20 100-147/59-83 95-96 Gen: NAD at rest Heart: RRR Lung: decreased breath sounds at the bases Abd: soft, nontender Ext: no edema CBC, BMP 12/13/19 09:48 12/13/19 09:48 Active Medications Acetaminophen (Ofirmev Injection -) 1,000 mg IVPB Q6H PRN PRN Reason: PAIN LEVEL 1-5 Albuterol Sulfate (Ventolin Hfa Inhaler -) 2 puff IH Q6H [facility] Last Admin: 12/13/19 11:43 Dose: Not Given Documented by: Albuterol/Ipratropium (Duoneb -) 1 amp NEB Q6H PRN PRN Reason: SHORTNESS OF BREATH Last Admin: 12/13/19 11:17 Dose: 1 amp Documented by: Aspirin (Asa -) 81 mg PO DAILY [facility] Last Admin: 12/13/19 10:23 Dose: 81 mg Documented by: Chlordiazepoxide HCl (Librium -) 10 mg PO ONCE ONE Stop: 12/14/19 05:01 Chlordiazepoxide HCl (Librium -) 10 mg PO Q12H PRN PRN Reason: Signs/symptoms of Withdrawal Stop: 12/13/19 23:59 Chlordiazepoxide HCl (Librium -) 10 mg PO Q8H [facility] Stop: 12/13/19 21:01 Last Admin: 12/13/19 05:27 Dose: 10 mg Documented by: Enoxaparin Sodium (Lovenox -) 40 mg SQ DAILY [facility] Last Admin: 12/13/19 10:23 Dose: 40 mg Documented by: Folic Acid (Folic Acid -) 1 mg PO DAILY [facility] Last Admin: 12/13/19 10:23 Dose: 1 mg Documented by: Furosemide (Lasix Injection -) 20 mg IVPUSH DAILY [facility] Last Admin: 12/13/19 10:23 Dose: 20 mg Documented by: Insulin Aspart (Novolog Vial Sliding Scale -) 1 vial SQ [facility]; Protocol Last Admin: 12/13/19 06:12 Dose: 2 unit Documented by: Lisinopril (Prinivil) 20 mg PO DAILY [facility] Last Admin: 12/13/19 10:23 Dose: 20 mg Documented by: Methylprednisolone Sodium Succinate (Solu-Medrol -) 40 mg IVPUSH Q8H-IV [facility] Last Admin: 12/13/19 10:23 Dose: 40 mg Documented by: Multivitamins/Minerals/Vitamin C (Tab-A-Vit -) 1 tab PO DAILY [facility] Last Admin: 12/13/19 10:23 Dose: 1 tab Documented by: A/P Acute COPD Exacerbation Polysubstance Abuse Atrial Fibrillation Hyperlipidemia DIDI Thrombocytopenia HTN DM Likely DIDI - short course of medrol - inhaled bronchodilators - O2 to keep Spo2 >90% - when ready for discharge, check ambulatory SpO2 to assess for home O2 - DVT prophylaxis
--- NOTE | 2019-12-13 13:02 | PN ---
Physical Exam: SUBJECTIVE: Patient seen and examined today, more alert than before, yet still remains difficult to awaken. Satting at 92% on 2L, increased O2. Complains of back pain, and is asking for Oxycodone 5mg. Additionally complains of constipation and chronic cough w/ mucous. OBJECTIVE: Vital Signs Period Temp Pulse Resp BP Sys/Valencia Pulse Ox Last 24 Hr 98.3 F-98.7 F 76-88 16-20 100-147/59-83 95-96 GENERAL: The patient is awake, alert,in no acute distress. HEAD: Normal with no signs of trauma. EYES: PERRL, extraocular movements intact, sclera anicteric, conjunctiva clear. No ptosis. ENT: Ears normal, nares patent, oropharynx clear without exudates, moist mucous membranes. NECK: Trachea midline, full range of motion, supple. LUNGS: Decreased air entry b/l, although body habitus makes auscultation difficult HEART: S1, S2 heard without murmur, rub or gallop, however, body habitus makes a uscultation difficult ABDOMEN: Soft, nontender, nondistended, normoactive bowel sounds, no guarding, no rebound. EXTREMITIES: PVD w/ hemosidderin deposition noted b/l in LE. 2+ pulses, warm, well-perfused, no edema. NEUROLOGICAL: Slurred speech, may be patients baseline gait not observed. PSYCH: Normal mood, normal affect. SKIN: Warm, dry, normal turgor Laboratory Results - last 24 hr CBC, BMP 12/13/19 09:48 12/13/19 09:48 Active Medications Generic Name Dose Route Start Last Admin Trade Name Armando PRN Reason Stop Dose Admin Acetaminophen 1,000 mg 12/11/19 17:30 12/13/19 12:23 Ofirmev Injection - IVPB 1,000 mg Q6H PRN Administration PAIN LEVEL 1-5 Albuterol/Ipratropium 1 amp 12/12/19 07:05 12/13/19 11:17 Duoneb - NEB 1 amp Q6H PRN Administration SHORTNESS OF BREATH Aspirin 81 mg 12/12/19 10:00 12/13/19 10:23 Asa - PO 81 mg DAILY [facility]ONNIE Administration Chlordiazepoxide HCl 10 mg 12/14/19 05:00 Librium - PO 12/14/19 05:01 ONCE ONE Chlordiazepoxide HCl 10 mg 12/13/19 00:00 Librium - PO 12/13/19 23:59 Q12H PRN Signs/symptoms of Withdrawal Chlordiazepoxide HCl 10 mg 12/13/19 05:00 12/13/19 12:03 Librium - PO 12/13/19 21:01 10 mg Q8H VONNIE Administration Enoxaparin Sodium 40 mg 12/12/19 10:00 12/13/19 10:23 Lovenox - SQ 40 mg DAILY VONNIE Administration Folic Acid 1 mg 12/12/19 10:00 12/13/19 10:23 Folic Acid - PO 1 mg DAILY VONNIE Administration Furosemide 20 mg 12/12/19 10:00 12/13/19 10:23 Lasix Injection - IVPUSH 20 mg DAILY VONNIE Administration Guaifenesin 10 ml 12/13/19 12:40 Robitussin - PO Q6H PRN COUGH Insulin Aspart 1 vial 12/11/19 22:00 12/13/19 12:05 Novolog Vial Sliding Scale - SQ 2 unit ACHS VONNIE Administration Protocol Lisinopril 20 mg 12/12/19 10:00 12/13/19 10:23 Prinivil PO 20 mg DAILY [facility]ONNIE Administration Methylprednisolone Sodium Succinate 40 mg 12/12/19 12:45 12/13/19 10:23 Solu-Medrol - IVPUSH 40 mg Q8H-IV VONNIE Administration Multivitamins/Minerals/Vitamin C 1 tab 12/12/19 10:00 12/13/19 10:23 Tab-A-Vit - PO 1 tab DAILY [facility]ONNIE Administration Polyethylene Glycol 17 gm 12/13/19 12:45 Miralax (For Daily Use) - PO DAILY VONNIE ASSESSMENT/PLAN: 74yo M with PMHx of polysubstance abuse including alcohol (4 drinks/day), cocaine, marijuana last used 2 days before admission, afib not on eliquis (non- compliant), 1st degree AV Block, LBBB, RBBB, obstructive lung disease, NIDDM, HLD, and DIDI presented from [facility] with SOB. While in the ED ptn had an EKG showing first degree AV block with frequent PVCs, RBBB, L anterior fascicular block. Additionally had a mechanical fall while going for CT, not related to intoxication. FU imaging showed no pathology from the event Acute on Chronic COPD/Asthma Exacerbation -Hx of Prior Hospitalization for asthma/copd exacerbation -Previously intubated per patient -Extensive Smoking hx: 2PPD > 25 years -CT Chest: Moderate Emphysema upper lobes b/l -C/W Symbicort -C/W Duonebs -C/W Solumedrol -Start Guafenisin for Cough -Start Incentive Spirometer Acute on Chronic Diastolic CHF Exacerbation -Per Cardiology: Does not need Telemetry, likely COPD exacerbation -Negative Troponins -BNP <400 -ECHO (12/10): EF unable to be determined; Impaired left ventricular dilation; mild left atrial dilation -Doppler: Negative for DVT b/l -Lasix IV 20mg qdaily for fluid overload -Monitor BP -Monitor I/Os Polysubstance Abuse -Hx of Alcohol, Cocaine, Marijuana, Nicotine Abuse -Last Drink & Cocaine 2 days ago -Drinks 4 shots/nips per day -Previously Seen [facility] protocol: Consider tapering tomorrow -Monitor for DTs Mechanical Fall While Going for CT Scan -No evidence of acute pathology on imaging following the fall -Monitor Neuro status Atrial Fibrillation -Per Cardiology now in Sinus Rhythm -Monitor for palpitation Non Insulin Dependent Diabetes Mellitus -HBa1c: 6.4 -ISS -Blood Glucose Checks Hypertension -Monitor BP -C/w Lasix -C/w Lisinopril PPx DVT: Lovenox 40 GI: None Dispo: Continue to monitor on Medical Floors Visit type - Emergency Visit Emergency Visit: No - New Patient This patient is new to me today: No - Critical Care Critical Care patient: No - Discharge Referral Referred to [facility] Med P.C.: No - Medication Review Med list reviewed for High Risk Meds patients 65 and older: Yes ATTENDING PHYSICIAN STATEMENT I saw and evaluated the patient. I reviewed the resident's note and discussed the case with the resident. I agree with the resident's findings and plan as documented. SUBJECTIVE: OBJECTIVE: ASSESSMENT AND PLAN:
[2019-12-13] MEDS: POLYETHYLENE GLYCOL 3350 119 GM BTL PO SCH (13:40)
[2019-12-13] MEDS ORDERED: INSULIN (NOVOLOG) ASPART 100 UNITS/ML 10ML VIAL ONE (17:03)
--- NOTE | 2019-12-13 17:47 | PN ---
Teaching Attending Note Name of Resident: Efren Goldstein ATTENDING PHYSICIAN STATEMENT I saw and evaluated the patient. I reviewed the resident's note and discussed the case with the resident. I agree with the resident's findings and plan as documented. SUBJECTIVE: Patient is confused, most likely due to ETOH OBJECTIVE: Vital Signs Temperature 98.5 F 12/13/19 14:00 Pulse Rate 77 12/13/19 14:00 Respiratory Rate 20 12/13/19 14:00 Blood Pressure 143/85 12/13/19 14:00 O2 Sat by Pulse Oximetry (%) 97 12/13/19 14:00 PE: per resident's note ABG Results ABG pH 7.418 (7.350-7.450) 12/11/19 15:22 ABG HCO3 30.7 mmol/L (22-27) H 12/11/19 15:22 ABG O2 Sat (Measured) 94.0 mmHg (95-98) L 12/11/19 15:22 ABG O2 Content No Result Required. 12/11/19 15:22 ABG Base Excess 5.0 mmol/L (-2-2) H 12/11/19 15:22 CBCD WBC 8.5 K/mm3 (4.0-10.0) 12/13/19 09:48 RBC 4.93 M/mm3 (4.00-5.60) 12/13/19 09:48 Hgb 14.8 GM/dL (11.7-16.9) 12/13/19 09:48 Hct 46.1 % (35.4-49) 12/13/19 09:48 MCV 93.6 fl (80-96) 12/13/19 09:48 MCHC 32.0 g/dl (32.0-35.9) 12/13/19 09:48 RDW 16.3 % (11.9-15.9) H 12/13/19 09:48 Plt Count 121 K/MM3 (134-434) L 12/13/19 09:48 MPV 9.5 fl (7.5-11.1) 12/13/19 09:48 CMP Sodium 138 mmol/L (136-145) 12/13/19 09:48 Potassium 4.4 mmol/L (3.5-5.1) 12/13/19 09:48 Chloride 103 mmol/L (98-107) 12/13/19 09:48 Carbon Dioxide 27 mmol/L (21-32) 12/13/19 09:48 Anion Gap 7 MMOL/L (8-16) L 12/13/19 09:48 BUN 11.4 mg/dL (7-18) 12/13/19 09:48 Creatinine 1.0 mg/dL (0.55-1.3) 12/13/19 09:48 Random Glucose 219 mg/dL (74-106) H 12/13/19 09:48 Calcium 8.4 mg/dL (8.5-10.1) L 12/13/19 09:48 Total Bilirubin 0.2 mg/dL (0.2-1) 12/13/19 09:48 AST 16 U/L (15-37) 12/13/19 09:48 ALT 21 U/L (13-61) 12/13/19 09:48 Alkaline Phosphatase 81 U/L (45-117) 12/13/19 09:48 Total Protein 7.3 g/dl (6.4-8.2) 12/13/19 09:48 Albumin 3.1 g/dl (3.4-5.0) L 12/13/19 09:48 CARDIAC ENZYMES Creatine Kinase 80 U/L (26-308) 12/10/19 22:00 Troponin I 0.02 ng/ml (0.00-0.05) 12/10/19 22:00 Current Medications Generic Name Dose Route Start Last Admin Trade Name Freq PRN Reason Stop Dose Admin Acetaminophen 1,000 mg 12/11/19 17:30 12/13/19 12:23 Ofirmev Injection - IVPB 1,000 mg Q6H PRN Administration PAIN LEVEL 1-5 Albuterol/Ipratropium 1 amp 12/12/19 07:05 12/13/19 11:17 Duoneb - NEB 1 amp Q6H PRN Administration SHORTNESS OF BREATH Aspirin 81 mg 12/12/19 10:00 12/13/19 10:23 Asa - PO 81 mg DAILY VONNIE Administration Chlordiazepoxide HCl 10 mg 12/14/19 05:00 Librium - PO 12/14/19 05:01 ONCE ONE Chlordiazepoxide HCl 10 mg 12/13/19 00:00 Librium - PO 12/13/19 23:59 Q12H PRN Signs/symptoms of Withdrawal Chlordiazepoxide HCl 10 mg 12/13/19 05:00 12/13/19 12:03 Librium - PO 12/13/19 21:01 10 mg Q8H VONNIE Administration Enoxaparin Sodium 40 mg 12/12/19 10:00 12/13/19 10:23 Lovenox - SQ 40 mg DAILY VONNIE Administration Folic Acid 1 mg 12/12/19 10:00 12/13/19 10:23 Folic Acid - PO 1 mg DAILY VONNIE Administration Furosemide 20 mg 12/12/19 10:00 12/13/19 10:23 Lasix Injection - IVPUSH 20 mg DAILY VONNIE Administration Guaifenesin 10 ml 12/13/19 12:40 Robitussin - PO Q6H PRN COUGH Insulin Aspart 1 vial 12/11/19 22:00 12/13/19 12:05 Novolog Vial Sliding Scale - SQ 2 unit ACHS VONNIE Administration Protocol Lisinopril 20 mg 12/12/19 10:00 12/13/19 10:23 Prinivil PO 20 mg DAILY VONNIE Administration Methylprednisolone Sodium Succinate 40 mg 12/12/19 12:45 12/13/19 17:06 Solu-Medrol - IVPUSH 40 mg Q8H-IV VONNIE Administration Multivitamins/Minerals/Vitamin C 1 tab 12/12/19 10:00 12/13/19 10:23 Tab-A-Vit - PO 1 tab DAILY VONNIE Administration Polyethylene Glycol 17 gm 12/13/19 12:45 12/13/19 13:40 Miralax (For Daily Use) - PO 17 gm DAILY VONNIE Administration Home Medications Medication Instructions Recorded Albuterol Sulfate [Albuterol 1 puff PO Q6H PRN 12/10/19 Sulfate Hfa] Atorvastatin Ca [Lipitor] 40 mg PO HS 12/10/19 Gabapentin [Neurontin] 100 mg PO TID 12/10/19 Lisinopril 30 mg PO DAILY 12/10/19 Metformin HCl [Glucophage] 1,000 mg PO DAILY 12/10/19 Spiriva 12/10/19 Aspirin [ASA -] 81 mg PO DAILY 12/11/19 Cyclobenzaprine HCl [Flexeril -] 10 mg PO TID 12/11/19 CT Chest: FINDINGS: There is no aortic aneurysm. There is no significant mediastinal or hilar adenopathy. The heart size is normal. The trachea and bronchi are patent. There is no pleural or pericardial effusion. Moderate emphysema is noted, predominating in the upper lobes. The lungs are clear with a minimal linear atelectasis. The upper abdominal structures are normal. IMPRESSION: Moderate emphysema. noncontrast head CT scan but shows nasal bridge fracture without skull fracture or intracranial hemorrhage. CT scan of C-spine shows "moderate degenerative change with mild degenerative listheses. No fracture or prevertebral soft tissue edema." No DVT low lower extremities noted on vascular sudy. EKG shows NSR at 72/minute, 1o AV block, RBBB, LAFB, PVCs and QTc [address]-T wave changes. ASSESSMENT AND PLAN: This patient is a 74yom with a PMHx Afib on Eliquis ( but not taking it), HTN, COPD, CHF, Polysubstance abuse (Alcohol, Cocaine, Marijuana), DIDI, NIDDM and HLD sent from [facility] for SOB and leg swelling. #Acute daistolic CHF exacerbation : Lasix IV 20mg daily #Acute COPD exacerbation : continue IV steroid, pulm on the case #Polysubstance abuse: on Librium protocol continue #Afib with rate controlled #T2DM SS with coverage # Hypertension on Lasix and lisinopril DVT prophylaxis - Lovenox 40 mg SQ q 24 hours. Full code
[2019-12-13] MEDS: guaiFENesin 200 MG/10 ML 10 ML UNIT-DOSE CUPS PO PRN (18:29)
[2019-12-14] MEDS: methylPREDNISolone NA SUCC 40 MG/1 ML VIAL IVPUSH SCH ×3 (01:01→17:06)
[2019-12-14] MEDS ORDERED: chlordiazePOXIDE HCL 10 MG CAPSULE PO ONE ×2 (05:00)
[2019-12-14] MEDS: guaiFENesin 200 MG/10 ML 10 ML UNIT-DOSE CUPS PO PRN ×2 (05:18→17:09)
[2019-12-14] MEDS: ACETAMINOPHEN 500 MG TABLET (FP) PO PRN ×2 (05:49→21:25)
[2019-12-14] MEDS: INSULIN SLIDING SCALE (NOVOLOG) 1 VIAL SQ SCH ×4 (06:11→21:29)
[2019-12-14] MEDS: FUROSEMIDE 40 MG/4 ML INJECTABLE VIAL IVPUSH SCH (09:54)
[2019-12-14] MEDS: ENOXAPARIN NA (PORCINE) 40 MG/0.4 ML DISP.SYRIN SQ SCH (09:54)
[2019-12-14] MEDS: NAPH,MB-DB/K PH,MBDB POWDER PACKET PO SCH ×2 (09:55→21:25)
[2019-12-14] MEDS: ASPIRIN 81 MG CHEWABLE TABLETS PO SCH (09:55)
[2019-12-14] MEDS: FOLIC ACID 1 MG TABLET (FP) PO SCH (09:55)
[2019-12-14] MEDS: POLYETHYLENE GLYCOL 3350 119 GM BTL PO SCH (09:56)
[2019-12-14] MEDS: LISINOPRIL 20 MG TABLET (FP) PO SCH (09:56)
[2019-12-14] MEDS: MULTIVITAMINS (DAILY MVI) TABLET (FP) PO SCH (09:56)
[2019-12-14 11:56] LABS: HEMATOCRIT 48.9 % (35.4-49); HEMOGLOBIN 15.4 GM/dL (11.7-16.9); LYMPH % 11.7 % (8-40); MCH 29.7 pg (25.7-33.7); MCHC 31.5 g/dl (32.0-35.9); MEAN CELL VOLUME 94.2 fl (80-96); MONO % 3.8 % (3.8-10.2); NEUT % 84.5 % (42.8-82.8); PLATELET COUNT 119 K/MM3 (134-434); RBC 5.19 M/mm3 (4.00-5.60); RDW 16.8 % (11.9-15.9)
--- NOTE | 2019-12-14 12:18 | PN ---
Progress Note (short form) - Note Progress Note: s: No CP/palps/dizziness; sob improving Current Medications Generic Name Dose Route Start Last Admin Trade Name Freq PRN Reason Stop Dose Admin Acetaminophen 1,000 mg 12/13/19 21:43 12/14/19 05:49 Tylenol - PO 1,000 mg Q6H PRN Administration PAIN LEVEL 1-5 Albuterol/Ipratropium 1 amp 12/12/19 07:05 12/13/19 11:17 Duoneb - NEB 1 amp Q6H PRN Administration SHORTNESS OF BREATH Aspirin 81 mg 12/12/19 10:00 12/14/19 09:55 Asa - PO 81 mg DAILY VONNIE Administration Enoxaparin Sodium 40 mg 12/12/19 10:00 12/14/19 09:54 Lovenox - SQ 40 mg DAILY VONNIE Administration Folic Acid 1 mg 12/12/19 10:00 12/14/19 09:55 Folic Acid - PO 1 mg DAILY VONNIE Administration Furosemide 20 mg 12/12/19 10:00 12/14/19 09:54 Lasix Injection - IVPUSH 20 mg DAILY VONNIE Administration Guaifenesin 10 ml 12/13/19 12:40 12/14/19 05:18 Robitussin - PO 10 ml Q6H PRN Administration COUGH Insulin Aspart 1 vial 12/11/19 22:00 12/14/19 11:32 Novolog Vial Sliding Scale - SQ 2 unit ACHS VONNIE Administration Protocol Lisinopril 20 mg 12/12/19 10:00 12/14/19 09:56 Prinivil PO 20 mg DAILY VONNIE Administration Methylprednisolone Sodium Succinate 40 mg 12/12/19 12:45 12/14/19 09:54 Solu-Medrol - IVPUSH 40 mg Q8H-IV VONNIE Administration Multivitamins/Minerals/Vitamin C 1 tab 12/12/19 10:00 12/14/19 09:56 Tab-A-Vit - PO 1 tab DAILY VONNIE Administration Polyethylene Glycol 17 gm 12/13/19 12:45 12/14/19 09:56 Miralax (For Daily Use) - PO 17 gm DAILY VONNIE Administration Potassium Phos/Sodium Phos 1 packet 12/14/19 10:00 12/14/19 09:55 Phos-Nak Packet - PO 12/14/19 22:01 1 packet BID VONNIE Administration Vital Signs Period Temp Pulse Resp BP Sys/Valencia Pulse Ox Last 24 Hr 97.7 F-98.5 F 77-91 20-22 136-150/63-85 94-97 Constitutional: Yes: No Distress, Calm Cardiovascular: Yes: Regular Rate and Rhythm Respiratory: Yes: Other (bilaterally decreased breath sounds diffusely; no rales or active wheezing) Gastrointestinal: Yes: Soft (nt), Abdomen, Obese Edema: No Neurological: Yes: Alert, Oriented ...Motor Strength: WNL no jaundice diaphoresis Labs: CBC, BMP 12/14/19 10:00 Assessment/Plan IMP: Polysubstance abuse PAF, nonadherent with AC Chronic COPD with acute exacerbation Mechanical fall, nasal fracture REC: 1. Polysub abuse: -Librium taper as per primary team -Rehab upon discharge 2. PAF: documented PAF, now in normal sinus rhythm -per reports non compliant w/ AC -Patient does not seem to be safe candidate for full AC -low dose aspirin started, the safer option in this case. -Outpatient eval for suspected DIDI 3. AECOPD: -cont nebs/supp O2 -Pulm eval pending -Do not suspect sig component CHF given clear lung exam and BNP < 400, TnI negative. -Reasonable to give trial Lasix for 24-48 hours 4. [facility] fall: -falls precations recommended -Not ideal candidate for full AC 5. RBBB/LAHB: -Outpt cardiology f/u 6. Dilated aorta: mild -Smoking cessation -Drug cessation -Cont Lisinopril for target BP < 140/90 -Hesitant to use beta darby here with sig COPD (potential for bronchospasm) and + COCAINE USE (unopposed alpha effect can precipitate malignant hypertension) -echo 11/2019: extremely technically difficult- EF could not be assessed, Thoracic aorta mildly dilated. -recommend outpatient contrast echo for EF assessment and yearly for aorta -Consider CT chest as inpatient for additional imaging of aortic diameter
[2019-12-14 12:27] LABS: CALCIUM 8.5 mg/dL (8.5-10.1); CREATININE 0.9 mg/dL (0.55-1.3); POTASSIUM 4.5 mmol/L (3.5-5.1)
--- NOTE | 2019-12-14 13:59 | PN ---
Physical Exam: SUBJECTIVE: Patient seen and examined, remains surprised when woken. Speech is still difficult to ascertain, may be baseline. OBJECTIVE: Vital Signs Period Temp Pulse Resp BP Sys/Valencia Pulse Ox Last 24 Hr 97.7 F-98.5 F 70-91 20-22 126-150/63-85 94-97 GENERAL: The patient is awake, alert,in no acute distress. HEAD: Normal with no signs of trauma. EYES: PERRL, extraocular movements intact, sclera anicteric, conjunctiva clear. No ptosis. ENT: Ears normal, nares patent, oropharynx clear without exudates, moist mucous membranes. NECK: Trachea midline, full range of motion, supple. LUNGS: Decreased air entry b/l, although body habitus makes auscultation difficult HEART: S1, S2 heard without murmur, rub or gallop, however, body habitus makes auscultation difficult ABDOMEN: Soft, nontender, nondistended, normoactive bowel sounds, no guarding, no rebound. EXTREMITIES: PVD w/ hemosidderin deposition noted b/l in LE. 2+ pulses, warm, well-perfused, no edema. NEUROLOGICAL: Slurred speech, may be patients baseline gait not observed. PSYCH: Normal mood, normal affect. SKIN: Warm, dry, normal turgor Laboratory Results - last 24 hr CBC, BMP 12/14/19 10:00 12/14/19 10:00 Active Medications Generic Name Dose Route Start Last Admin Trade Name Freq PRN Reason Stop Dose Admin Acetaminophen 1,000 mg 12/13/19 21:43 12/14/19 05:49 Tylenol - PO 1,000 mg Q6H PRN Administration PAIN LEVEL 1-5 Albuterol/Ipratropium 1 amp 12/12/19 07:05 12/13/19 11:17 Duoneb - NEB 1 amp Q6H PRN Administration SHORTNESS OF BREATH Aspirin 81 mg 12/12/19 10:00 12/14/19 09:55 Asa - PO 81 mg DAILY VONNIE Administration Enoxaparin Sodium 40 mg 12/12/19 10:00 12/14/19 09:54 Lovenox - SQ 40 mg DAILY VONNIE Administration Folic Acid 1 mg 12/12/19 10:00 12/14/19 09:55 Folic Acid - PO 1 mg DAILY VONNIE Administration Furosemide 20 mg 12/12/19 10:00 12/14/19 09:54 Lasix Injection - IVPUSH 20 mg DAILY VONNIE Administration Guaifenesin 10 ml 12/13/19 12:40 12/14/19 05:18 Robitussin - PO 10 ml Q6H PRN Administration COUGH Insulin Aspart 1 vial 12/11/19 22:00 12/14/19 11:32 Novolog Vial Sliding Scale - SQ 2 unit ACHS VONNIE Administration Protocol Lisinopril 20 mg 12/12/19 10:00 12/14/19 09:56 Prinivil PO 20 mg DAILY VONNIE Administration Methylprednisolone Sodium Succinate 40 mg 12/12/19 12:45 12/14/19 09:54 Solu-Medrol - IVPUSH 40 mg Q8H-IV VONNIE Administration Multivitamins/Minerals/Vitamin C 1 tab 12/12/19 10:00 12/14/19 09:56 Tab-A-Vit - PO 1 tab DAILY VONNIE Administration Polyethylene Glycol 17 gm 12/13/19 12:45 12/14/19 09:56 Miralax (For Daily Use) - PO 17 gm DAILY VONNIE Administration Potassium Phos/Sodium Phos 1 packet 12/14/19 10:00 12/14/19 09:55 Phos-Nak Packet - PO 12/14/19 22:01 1 packet BID VONNIE Administration ASSESSMENT/PLAN: 74yo M with PMHx of polysubstance abuse including alcohol (4 drinks/day), cocaine, marijuana last used 2 days before admission, afib not on eliquis (non-compliant), 1st degree AV Block, L anterior fascicular block, RBBB, obstructive lung disease, NIDDM, HLD, and IDDI presented from [facility] with SOB. Additionally had a mechanical fall while going for CT, not related to intoxication. FU imaging showed no pathology from the event Acute on Chronic COPD/Asthma Exacerbation -Hx of Prior Hospitalization for asthma/copd exacerbation -Previously intubated per patient -Extensive Smoking hx: 2PPD > 25 years -CT Chest: Moderate Emphysema upper lobes b/l -C/W Symbicort -C/W Duonebs -C/W Solumedrol -C/W Guafenisin for Cough -C/W Incentive Spirometer Acute on Chronic Diastolic CHF Exacerbation -Per Cardiology: Does not need Telemetry, likely COPD exacerbation -Negative Troponins -BNP <400 -ECHO (12/10): EF unable to be determined; Impaired left ventricular dilation; mild left atrial dilation -Doppler: Negative for DVT b/l -Avoid BB 2/2 cocaine use -FU outpatient cardiology workup -Lasix IV 20mg qdaily for fluid overload -Monitor BP -Monitor I/Os Polysubstance Abuse -Hx of Alcohol, Cocaine, Marijuana, Nicotine Abuse -Last Drink & Cocaine 2 days ago -Drinks 4 shots/nips per day -Previously Seen [facility] -Librium protocol: Last day tomorrow. Will reassess mental status after. Mechanical Fall While Going for CT Scan -No evidence of acute pathology on imaging following the fall -Monitor Neuro status Atrial Fibrillation -Per Cardiology now in Sinus Rhythm -Monitor for palpitation Non Insulin Dependent Diabetes Mellitus -HBa1c: 6.4 -ISS -Blood Glucose Checks Hypertension -Monitor BP -C/w Lasix -C/w Lisinopril PPx DVT: Lovenox 40 GI: None GOALS OF CARE -FU Social Work Consult -FU PT Consult Dispo: Continue to monitor on Medical Floors Visit type - Emergency Visit Emergency Visit: No - New Patient This patient is new to me today: No - Critical Care Critical Care patient: No - Discharge Referral [facility] Med [facility] No - Medication Review Med list reviewed for High Risk Meds patients 65 and older: Yes ATTENDING PHYSICIAN STATEMENT I saw and evaluated the patient. I reviewed the resident's note and discussed the case with the resident. I agree with the resident's findings and plan as documented. SUBJECTIVE: OBJECTIVE: ASSESSMENT AND PLAN:
[2019-12-14] MEDS ORDERED: ARTIFICIAL TEARS (POLYVINYL ALCOHOL) OPTH DROPS OU PRN (14:50)
--- NOTE | 2019-12-14 14:50 | PN ---
Progress Note (short form) - Note Progress Note: PULMONARY States breathing is improving but still some dyspnea on exertion. Vital Signs Period Temp Pulse Resp BP Sys/Valencia Pulse Ox Last 24 Hr 97.7 F-98.2 F 70-91 20-22 126-150/63-80 94-97 Gen: NAD at rest Heart: RRR Lung: decreased breath sounds at the bases Abd: soft, nontender Ext: no edema CBC, BMP 12/14/19 10:00 12/14/19 10:00 Active Medications Acetaminophen (Tylenol -) 1,000 mg PO Q6H PRN PRN Reason: PAIN LEVEL 1-5 Last Admin: 12/14/19 05:49 Dose: 1,000 mg Documented by: Albuterol/Ipratropium (Duoneb -) 1 amp NEB Q6H PRN PRN Reason: SHORTNESS OF BREATH Last Admin: 12/13/19 11:17 Dose: 1 amp Documented by: Aspirin (Asa -) 81 mg PO DAILY [facility] Last Admin: 12/14/19 09:55 Dose: 81 mg Documented by: Enoxaparin Sodium (Lovenox -) 40 mg SQ DAILY [facility] Last Admin: 12/14/19 09:54 Dose: 40 mg Documented by: Folic Acid (Folic Acid -) 1 mg PO DAILY [facility] Last Admin: 12/14/19 09:55 Dose: 1 mg Documented by: Furosemide (Lasix Injection -) 20 mg IVPUSH DAILY [facility] Last Admin: 12/14/19 09:54 Dose: 20 mg Documented by: Gabapentin (Neurontin -) 100 mg PO TID [facility] Guaifenesin (Robitussin -) 10 ml PO Q6H PRN PRN Reason: COUGH Last Admin: 12/14/19 05:18 Dose: 10 ml Documented by: Insulin Aspart (Novolog Vial Sliding Scale -) 1 vial SQ [facility]; Protocol Last Admin: 12/14/19 11:32 Dose: 2 unit Documented by: Lisinopril (Prinivil) 20 mg PO DAILY [facility] Last Admin: 12/14/19 09:56 Dose: 20 mg Documented by: Methylprednisolone Sodium Succinate (Solu-Medrol -) 40 mg IVPUSH Q8H-IV [facility] Last Admin: 12/14/19 09:54 Dose: 40 mg Documented by: Multivitamins/Minerals/Vitamin C (Tab-A-Vit -) 1 tab PO DAILY [facility] Last Admin: 12/14/19 09:56 Dose: 1 tab Documented by: Polyethylene Glycol (Miralax (For Daily Use) -) 17 gm PO DAILY [facility] Last Admin: 12/14/19 09:56 Dose: 17 gm Documented by: Potassium Phos/Sodium Phos (Phos-Nak Packet -) 1 packet PO BID [facility] Stop: 12/14/19 22:01 Last Admin: 12/14/19 09:55 Dose: 1 packet Documented by: A/P Acute COPD Exacerbation Polysubstance Abuse Atrial Fibrillation Hyperlipidemia DIDI Thrombocytopenia HTN DM Likely DIDI - continue medrol - inhaled bronchodilators - O2 to keep Spo2 >90% - when ready for discharge, check ambulatory SpO2 to assess for home O2 - DVT prophylaxis
[2019-12-14] MEDS: GABAPENTIN 100 MG CAPSULE PO SCH ×2 (15:32→21:25)
[2019-12-14] MEDS ORDERED: PT OWN MED DRAWER 7, Y5N ONE (17:08)
[2019-12-14] MEDS: FLUTICASONE PROP 0.05% 16 GM NASAL SPRAY NS SCH ×2 (17:10→21:29)
[2019-12-14] MEDS: ARTIFICIAL TEARS (POLYVINYL ALCOHOL) OPTH DROPS OU SCH ×2 (17:10→21:29)
--- NOTE | 2019-12-14 18:04 | PN ---
Teaching Attending Note Name of Resident: Efren Goldstein ATTENDING PHYSICIAN STATEMENT I saw and evaluated the patient. I reviewed the resident's note and discussed the case with the resident. I agree with the resident's findings and plan as documented. SUBJECTIVE: Patient continues to have tremor, but feels better OBJECTIVE: Vital Signs Temperature 98.3 F 12/14/19 14:00 Pulse Rate 92 H 12/14/19 14:00 Respiratory Rate 20 12/14/19 17:36 Blood Pressure 126/62 12/14/19 14:00 O2 Sat by Pulse Oximetry (%) 96 12/14/19 17:36 PE: per resident's note CBCD WBC 12.0 K/mm3 (4.0-10.0) H 12/14/19 10:00 RBC 5.19 M/mm3 (4.00-5.60) 12/14/19 10:00 Hgb 15.4 GM/dL (11.7-16.9) 12/14/19 10:00 Hct 48.9 % (35.4-49) 12/14/19 10:00 MCV 94.2 fl (80-96) 12/14/19 10:00 MCHC 31.5 g/dl (32.0-35.9) L 12/14/19 10:00 RDW 16.8 % (11.9-15.9) H 12/14/19 10:00 Plt Count 119 K/MM3 (134-434) L 12/14/19 10:00 MPV 9.0 fl (7.5-11.1) 12/14/19 10:00 CMP Sodium 138 mmol/L (136-145) 12/14/19 10:00 Potassium 4.5 mmol/L (3.5-5.1) 12/14/19 10:00 Chloride 102 mmol/L (98-107) 12/14/19 10:00 Carbon Dioxide 29 mmol/L (21-32) 12/14/19 10:00 Anion Gap 7 MMOL/L (8-16) L 12/14/19 10:00 BUN 18.0 mg/dL (7-18) 12/14/19 10:00 Creatinine 0.9 mg/dL (0.55-1.3) 12/14/19 10:00 Random Glucose 185 mg/dL (74-106) H 12/14/19 10:00 Calcium 8.5 mg/dL (8.5-10.1) 12/14/19 10:00 Total Bilirubin 0.2 mg/dL (0.2-1) 12/13/19 09:48 AST 16 U/L (15-37) 12/13/19 09:48 ALT 21 U/L (13-61) 12/13/19 09:48 Alkaline Phosphatase 81 U/L (45-117) 12/13/19 09:48 Total Protein 7.3 g/dl (6.4-8.2) 12/13/19 09:48 Albumin 3.1 g/dl (3.4-5.0) L 12/13/19 09:48 CARDIAC ENZYMES Creatine Kinase 80 U/L (26-308) 12/10/19 22:00 Troponin I 0.02 ng/ml (0.00-0.05) 12/10/19 22:00 Current Medications Generic Name Dose Route Start Last Admin Trade Name Freq PRN Reason Stop Dose Admin Acetaminophen 1,000 mg 12/13/19 21:43 12/14/19 05:49 Tylenol - PO 1,000 mg Q6H PRN Administration PAIN LEVEL 1-5 Albuterol/Ipratropium 1 amp 12/12/19 07:05 12/13/19 11:17 Duoneb - NEB 1 amp Q6H PRN Administration SHORTNESS OF BREATH Artificial Tears 1 drop 12/14/19 15:00 12/14/19 17:10 Artificial Tears OU Not Given BID VONNIE Aspirin 81 mg 12/12/19 10:00 12/14/19 09:55 Asa - PO 81 mg DAILY VON[facility] Administration Enoxaparin Sodium 40 mg 12/12/19 10:00 12/14/19 09:54 Lovenox - SQ 40 mg DAILY VON[facility] Administration Fluticasone Propionate 1 spray 12/14/19 14:50 12/14/19 17:10 Flonase - NS Not Given BID VONNIE Folic Acid 1 mg 12/12/19 10:00 12/14/19 09:55 Folic Acid - PO 1 mg DAILY VON[facility] Administration Gabapentin 100 mg 12/14/19 14:30 12/14/19 15:32 Neurontin - PO 100 mg TID VONNIE Administration Guaifenesin 10 ml 12/13/19 12:40 12/14/19 17:09 Robitussin - PO 10 ml Q6H PRN Administration COUGH Insulin Aspart 1 vial 12/11/19 22:00 12/14/19 16:21 Novolog Vial Sliding Scale - SQ Not Given ACHS [facility] Protocol Lisinopril 20 mg 12/12/19 10:00 12/14/19 09:56 Prinivil PO 20 mg DAILY VONNIE Administration Methylprednisolone Sodium Succinate 40 mg 12/12/19 12:45 12/14/19 17:06 Solu-Medrol - IVPUSH 40 mg Q8H-IV VONNIE Administration Multivitamins/Minerals/Vitamin C 1 tab 12/12/19 10:00 12/14/19 09:56 Tab-A-Vit - PO 1 tab DAILY [facility]ON[facility] Administration Polyethylene Glycol 17 gm 12/13/19 12:45 12/14/19 09:56 Miralax (For Daily Use) - PO 17 gm DAILY VONNIE Administration Potassium Phos/Sodium Phos 1 packet 12/14/19 10:00 12/14/19 09:55 Phos-Nak Packet - PO 12/14/19 22:01 1 packet BID VONNIE Administration Home Medications Medication Instructions Recorded Albuterol Sulfate [Albuterol 1 puff PO Q6H PRN 12/10/19 Sulfate Hfa] Atorvastatin Ca [Lipitor] 40 mg PO HS 12/10/19 Gabapentin [Neurontin] 100 mg PO TID 12/10/19 Lisinopril 30 mg PO DAILY 12/10/19 Metformin HCl [Glucophage] 1,000 mg PO DAILY 12/10/19 Spiriva 12/10/19 Aspirin [ASA -] 81 mg PO DAILY 12/11/19 Cyclobenzaprine HCl [Flexeril -] 10 mg PO TID 12/11/19 CT Chest: FINDINGS: There is no aortic aneurysm. There is no significant mediastinal or hilar adenopathy. The heart size is normal. The trachea and bronchi are patent. There is no pleural or pericardial effusion. Moderate emphysema is noted, predominating in the upper lobes. The lungs are clear with a minimal linear atelectasis. The upper abdominal structures are normal. IMPRESSION: Moderate emphysema. noncontrast head CT scan but shows nasal bridge fracture without skull fracture or intracranial hemorrhage. CT scan of C-spine shows "moderate degenerative change with mild degenerative listheses. No fracture or prevertebral soft tissue edema." No DVT low lower extremities noted on vascular sudy. EKG shows NSR at 72/minute, 1o AV block, RBBB, LAFB, PVCs and QTc [address]-T wave changes. ASSESSMENT AND PLAN: This patient is a 74yom with a PMHx Afib on Eliquis ( but not taking it), HTN, COPD, CHF, Polysubstance abuse (Alcohol, Cocaine, Marijuana), DIDI, NIDDM and HLD sent from [facility] for SOB and leg swelling. #Acute daistolic CHF exacerbation : improved , s/p IV Lasix #Acute COPD exacerbation : continue IV steroid, pulm on the case #Polysubstance abuse: on Librium protocol continue one more day since continues to have mild tremor #Afib with rate controlled #T2DM SS with coverage # Hypertension on lisinopril continue DVT prophylaxis - Lovenox 40 mg SQ q 24 hours. Full code if stable dc in am
[2019-12-15] MEDS: chlordiazePOXIDE 5 MG CAPSULE PO SCH ×4 (00:45→17:13)
[2019-12-15] MEDS: methylPREDNISolone NA SUCC 40 MG/1 ML VIAL IVPUSH SCH ×2 (01:52→09:35)
[2019-12-15] MEDS: GABAPENTIN 100 MG CAPSULE PO SCH ×3 (05:48→21:27)
[2019-12-15] MEDS: INSULIN SLIDING SCALE (NOVOLOG) 1 VIAL SQ SCH ×4 (06:10→21:32)
[2019-12-15] MEDS: guaiFENesin 200 MG/10 ML 10 ML UNIT-DOSE CUPS PO PRN (06:20)
[2019-12-15] MEDS: ALBUTEROL SO4 2.5/IPRATROPIUM 0.5 INH SOL 3 ML VIAL.NEB. NEB PRN ×2 (06:40→20:24)
[2019-12-15] MEDS ORDERED: INSULIN (LEVEMIR) 100 UNITS/ML UNITS SQ ONE (06:45)
[2019-12-15] MEDS ORDERED: INSULIN (NOVOLOG) ASPART 100 UNITS/ML 10ML VIAL ONE (06:45)
[2019-12-15 07:35] LABS: BASO % 0.1 % (0-2.0); HEMATOCRIT 48.3 % (35.4-49); HEMOGLOBIN 15.5 GM/dL (11.7-16.9); LYMPH % 13.7 % (8-40); MCHC 32.1 g/dl (32.0-35.9); MEAN CELL VOLUME 93.4 fl (80-96); MEAN PLT VOLUME 9.4 fl (7.5-11.1); MONO % 3.7 % (3.8-10.2); NEUT % 82.5 % (42.8-82.8); PLATELET COUNT 131 K/MM3 (134-434); RBC 5.17 M/mm3 (4.00-5.60); WHITE BLOOD COUNT 9.1 K/mm3 (4.0-10.0)
[2019-12-15 08:05] LABS: BLOOD UREA NITROGEN 21.2 mg/dL (7-18); CALCIUM 8.5 mg/dL (8.5-10.1); CREATININE 0.9 mg/dL (0.55-1.3); POTASSIUM 4.6 mmol/L (3.5-5.1)
[2019-12-15] MEDS ORDERED: PT OWN MED DRAWER 7, Y5N ONE (09:30)
[2019-12-15] MEDS: FOLIC ACID 1 MG TABLET (FP) PO SCH (09:34)
[2019-12-15] MEDS: ASPIRIN 81 MG CHEWABLE TABLETS PO SCH (09:35)
[2019-12-15] MEDS: FLUTICASONE PROP 0.05% 16 GM NASAL SPRAY NS SCH ×2 (09:35→21:27)
[2019-12-15] MEDS: ENOXAPARIN NA (PORCINE) 40 MG/0.4 ML DISP.SYRIN SQ SCH (09:35)
[2019-12-15] MEDS: MULTIVITAMINS (DAILY MVI) TABLET (FP) PO SCH (09:35)
[2019-12-15] MEDS: LISINOPRIL 20 MG TABLET (FP) PO SCH (09:35)
[2019-12-15] MEDS: ARTIFICIAL TEARS (POLYVINYL ALCOHOL) OPTH DROPS OU SCH ×2 (09:36→21:27)
[2019-12-15] MEDS: POLYETHYLENE GLYCOL 3350 119 GM BTL PO SCH (09:42)
--- NOTE | 2019-12-15 11:17 | PN ---
Progress Note, Physician History of Present Illness: pulmonary alert,feeling better,less dyspneic,-cp - Current Medication List Current Medications: Active Medications Acetaminophen (Tylenol -) 1,000 mg PO Q6H PRN PRN Reason: PAIN LEVEL 1-5 Last Admin: 12/14/19 21:25 Dose: 1,000 mg Documented by: Albuterol/Ipratropium (Duoneb -) 1 amp NEB Q6H PRN PRN Reason: SHORTNESS OF BREATH Last Admin: 12/15/19 06:40 Dose: 1 amp Documented by: Artificial Tears (Artificial Tears) 1 drop OU BID [facility] Last Admin: 12/15/19 09:36 Dose: 1 drop Documented by: Aspirin (Asa -) 81 mg PO DAILY [facility] Last Admin: 12/15/19 09:35 Dose: 81 mg Documented by: Chlordiazepoxide HCl (Librium -) 5 mg PO H1O-UBJ [facility] Last Admin: 12/15/19 05:48 Dose: 5 mg Documented by: Enoxaparin Sodium (Lovenox -) 40 mg SQ DAILY [facility] Last Admin: 12/15/19 09:35 Dose: 40 mg Documented by: Fluticasone Propionate (Flonase -) 1 spray NS BID [facility] Last Admin: 12/15/19 09:35 Dose: 1 spray Documented by: Folic Acid (Folic Acid -) 1 mg PO DAILY [facility] Last Admin: 12/15/19 09:34 Dose: 1 mg Documented by: Gabapentin (Neurontin -) 100 mg PO TID [facility] Last Admin: 12/15/19 05:48 Dose: 100 mg Documented by: Guaifenesin (Robitussin -) 10 ml PO Q6H PRN PRN Reason: COUGH Last Admin: 12/15/19 06:20 Dose: 10 ml Documented by: Insulin Aspart (Novolog Vial Sliding Scale -) 1 vial SQ [facility]; Protocol Last Admin: 12/15/19 06:10 Dose: 4 unit Documented by: Lisinopril (Prinivil) 20 mg PO DAILY [facility] Last Admin: 12/15/19 09:35 Dose: 20 mg Documented by: Methylprednisolone Sodium Succinate (Solu-Medrol -) 40 mg IVPUSH Q8H-IV [facility] Last Admin: 12/15/19 09:35 Dose: 40 mg Documented by: Multivitamins/Minerals/Vitamin C (Tab-A-Vit -) 1 tab PO DAILY [facility] Last Admin: 12/15/19 09:35 Dose: 1 tab Documented by: Polyethylene Glycol (Miralax (For Daily Use) -) 17 gm PO DAILY [facility] Last Admin: 12/15/19 09:42 Dose: 17 gm Documented by: - Objective Vital Signs: Vital Signs Temperature 98.9 F 12/15/19 06:00 Pulse Rate 81 12/15/19 06:00 Respiratory Rate 20 12/15/19 06:00 Blood Pressure 134/54 L 12/15/19 06:00 O2 Sat by Pulse Oximetry (%) 94 L 12/15/19 06:00 Constitutional: Yes: Calm, Obese Eyes: Yes: WNL HENT: Yes: WNL Cardiovascular: Yes: Regular Rate and Rhythm, S1, S2 Respiratory: Yes: Diminished Gastrointestinal: Yes: Normal Bowel Sounds, Soft Extremities: Yes: WNL Edema: No Labs: CBC, BMP 12/15/19 06:40 12/15/19 06:40 Problem List - Problems (1) Acute respiratory failure with hypoxia and hypercarbia Code(s): J96.01 - ACUTE RESPIRATORY FAILURE WITH HYPOXIA; J96.02 - ACUTE RESPIRATORY FAILURE WITH HYPERCAPNIA (2) Dyspnea Code(s): R06.00 - DYSPNEA, UNSPECIFIED (3) Cocaine dependence, uncomplicated Code(s): F14.20 - COCAINE DEPENDENCE, UNCOMPLICATED (4) Diabetes Code(s): E11.9 - TYPE 2 DIABETES MELLITUS WITHOUT COMPLICATIONS (5) HLD (hyperlipidemia) Code(s): E78.5 - HYPERLIPIDEMIA, UNSPECIFIED (6) Non-compliance Code(s): Z91.19 - PATIENT'S NONCOMPLIANCE W OTH MEDICAL TREATMENT AND REGIMEN (7) Obesity (BMI 30-39.9) Code(s): E66.9 - OBESITY, UNSPECIFIED (8) Sleep apnea Code(s): G47.30 - SLEEP APNEA, UNSPECIFIED (9) COPD (chronic obstructive pulmonary disease) Code(s): J44.9 - CHRONIC OBSTRUCTIVE PULMONARY DISEASE, UNSPECIFIED (10) Thrombocytopenia Code(s): D69.6 - THROMBOCYTOPENIA, UNSPECIFIED Assessment/Plan IMP ACUTE HYPOXEMIC/HYPERCAPNEIC RESPIRATORY FAILURE COPD WITH ACUTE EXACERBATION IMPROVING POLYSUBSTANCE ABUSE S/P MECHANICAL FALL DM H/O DIDI HLD THROMBOCYTOPENIA PLAN SUPPLEMENTAL O2 INHALED BRONCHODILATORS MEDROL RATE CONTROL MONITOR LYTES,PLT CT DR MORGAN Problem List - Problems (1) Acute respiratory failure with hypoxia and hypercarbia Code(s): J96.01 - ACUTE RESPIRATORY FAILURE WITH HYPOXIA; J96.02 - ACUTE RESPIRATORY FAILURE WITH HYPERCAPNIA (2) Dyspnea Code(s): R06.00 - DYSPNEA, UNSPECIFIED (3) Cocaine dependence, uncomplicated Code(s): F14.20 - COCAINE DEPENDENCE, UNCOMPLICATED (4) Diabetes Code(s): E11.9 - TYPE 2 DIABETES MELLITUS WITHOUT COMPLICATIONS (5) HLD (hyperlipidemia) Code(s): E78.5 - HYPERLIPIDEMIA, UNSPECIFIED (6) Non-compliance Code(s): Z91.19 - PATIENT'S NONCOMPLIANCE W OTH MEDICAL TREATMENT AND REGIMEN (7) Obesity (BMI 30-39.9) Code(s): E66.9 - OBESITY, UNSPECIFIED (8) Sleep apnea Code(s): G47.30 - SLEEP APNEA, UNSPECIFIED (9) COPD (chronic obstructive pulmonary disease) Code(s): J44.9 - CHRONIC OBSTRUCTIVE PULMONARY DISEASE, UNSPECIFIED (10) Thrombocytopenia Code(s): D69.6 - THROMBOCYTOPENIA, UNSPECIFIED
--- NOTE | 2019-12-15 12:48 | ECHO ---
Version: 1 Name: DELORES BRAVO Exam: Adult Echocardiogram Study Date: 12/15/2019, 11:32 AM Age: 74 Years MMode/2D Measurements & Calculations IVSd: 1.58 cm LVIDs: 2.7 cm LVIDd: 3.9 cm LVPWd: 1.37 cm Procedure The study was non-diagnostic in quality. No definitive statements could be made about this echo due to extremely poor acoustic windows. Left Ventricle The left ventricle is grossly normal size. Left ventricular systolic function is grossly normal. Eje ction Fraction = 60%. Right Ventricle The right ventricle is grossly normal size. Atria Normal left and right atrial size and function. Mitral Valve The mitral valve is grossly normal. Tricuspid Valve The tricuspid valve is not well visualized, but is grossly normal. Aortic Valve The aortic valve is not well visualized. Pulmonic Valve The pulmonic valve is not well visualized. Great Vessels The aortic root is normal size. Normal aortic arch, descending and ascending aorta. Pericardium/Pleura There is no pericardial effusion. Tech Comments TDS due to morbid obesity. Summary Statements The study was non-diagnostic in quality. No definitive statements could be made about this echo due to extremely poor acoustic windows. Left ventricular systolic function is grossly normal. Ejection Fraction = 60%. The left ventricle is grossly normal size. The right ventricle is grossly normal size. Normal left and right atrial size and function. The mitral valve is grossly normal. The tricuspid valve is not well visualized, but is grossly normal. The aortic valve is not well visualized. The pulmonic valve is not well visualized. The aortic root is normal size. Normal aortic arch, descending and ascending aorta There is no pericardial effusion. Carlos 12/15/2019, 12:47 PM [place] Ordering Physician: Francis Vila Referring Physician: FRANCIS VILA Performed By: Shivani Wharton
--- NOTE | 2019-12-15 13:39 | PN ---
Progress Note (short form) - Note Progress Note: s: no chest pain, palps, dizziness, dyspnea. feeling better Current Medications Generic Name Dose Route Start Last Admin Trade Name Freq PRN Reason Stop Dose Admin Acetaminophen 1,000 mg 12/13/19 21:43 12/14/19 21:25 Tylenol - PO 1,000 mg Q6H PRN Administration PAIN LEVEL 1-5 Albuterol/Ipratropium 1 amp 12/12/19 07:05 12/15/19 06:40 Duoneb - NEB 1 amp Q6H PRN Administration SHORTNESS OF BREATH Artificial Tears 1 drop 12/14/19 15:00 12/15/19 09:36 Artificial Tears OU 1 drop BID [facility] Administration Aspirin 81 mg 12/12/19 10:00 12/15/19 09:35 Asa - PO 81 mg DAILY [facility] Administration Chlordiazepoxide HCl 5 mg 12/14/19 23:00 12/15/19 13:37 Librium - PO 5 mg [id number] [facility]ON[facility] Administration Enoxaparin Sodium 40 mg 12/12/19 10:00 12/15/19 09:35 Lovenox - SQ 40 mg DAILY [facility] Administration Fluticasone Propionate 1 spray 12/14/19 14:50 12/15/19 09:35 Flonase - NS 1 spray BID [facility] Administration Folic Acid 1 mg 12/12/19 10:00 12/15/19 09:34 Folic Acid - PO 1 mg DAILY [facility] Administration Gabapentin 100 mg 12/14/19 14:30 12/15/19 13:37 Neurontin - PO 100 mg TID [facility] Administration Guaifenesin 10 ml 12/13/19 12:40 12/15/19 06:20 Robitussin - PO 10 ml Q6H PRN Administration COUGH Insulin Aspart 1 vial 12/11/19 22:00 12/15/19 13:38 Novolog Vial Sliding Scale - SQ 2 unit ACHS VONNIE Administration Protocol Lisinopril 20 mg 12/12/19 10:00 12/15/19 09:35 Prinivil PO 20 mg DAILY [facility]ON[facility]IE Administration Methylprednisolone Sodium Succinate 40 mg 12/15/19 22:00 Solu-Medrol - IVPUSH BID [facility] Multivitamins/Minerals/Vitamin C 1 tab 12/12/19 10:00 12/15/19 09:35 Tab-A-Vit - PO 1 tab DAILY [facility] Administration Polyethylene Glycol 17 gm 12/13/19 12:45 12/15/19 09:42 Miralax (For Daily Use) - PO 17 gm DAILY [facility] Administration Vital Signs Period Temp Pulse Resp BP Sys/Valencia Pulse Ox Last 24 Hr 98.3 F-98.9 F 69-92 20-22 120-148/54-77 94-96 Constitutional: Yes: No Distress, Calm Cardiovascular: Yes: Regular Rate and Rhythm Respiratory: Yes: Other (bilaterally decreased breath sounds diffusely; no rales or active wheezing) Gastrointestinal: Yes: Soft (nt), Abdomen, Obese Edema: No Neurological: Yes: Alert, Oriented no jaundice diaphoresis not agitated aox3 Assessment/Plan IMP: Polysubstance abuse PAF, nonadherent with AC Chronic COPD with acute exacerbation Mechanical fall, nasal fracture REC: 1. Polysub abuse: -Librium taper as per primary team -Rehab upon discharge 2. PAF: documented PAF, now in normal sinus rhythm -per reports non compliant w/ AC -Patient does not seem to be safe candidate for anticoagulation -low dose aspirin started, the safer option in this case. -Outpatient eval for suspected DIDI 3. AECOPD: -cont nebs/supp O2 -Pulm eval pending -Do not suspect sig component CHF given clear lung exam and BNP < 400, TnI negative. -Reasonable to give trial Lasix for 24-[address] [facility] fall: -falls precations recommended -Not ideal candidate for full AC 5. RBBB/LAHB: -Outpt cardiology f/u 6. Dilated aorta: mild -Smoking cessation -Drug cessation -Cont Lisinopril for target BP < 140/90 -defer beta darby here with sig COPD (potential for bronchospasm) and + cocaine use (unopposed alpha effect can precipitate malignant hypertension) -echo 11/2019: extremely technically difficult- EF could not be assessed, Thoracic aorta mildly dilated. -recommend outpatient contrast echo for EF assessment and yearly for aorta -Consider CT chest as inpatient for additional imaging of aortic diameter
--- NOTE | 2019-12-15 14:21 | PN ---
Teaching Attending Note Name of Resident: Angelica Perdomo ATTENDING PHYSICIAN STATEMENT I saw and evaluated the patient. I reviewed the resident's note and discussed the case with the resident. I agree with the resident's findings and plan as documented. SUBJECTIVE: patient feels well, has no complaints Placed back on oxygen overnight due to shortness of breath OBJECTIVE: Vital Signs Period Temp Pulse Resp BP Sys/Valencia Pulse Ox Last 24 Hr 98.4 F-98.9 F 69-84 20-22 120-148/54-77 94-96 GENERAL: Awake, alert, in no acute distress. HEAD: Normal with no signs of trauma. EYES: Pupils equal, round and reactive to light, extraocular movements intact, sclera anicteric, conjunctiva clear. EARS, NOSE, THROAT: Ears normal, nares patent, Moist mucous membranes. NECK: Normal range of motion, No JVD, LUNGS: Breath sounds equal, clear to auscultation bilaterally. No wheezes, and no crackles. No accessory muscle use. HEART: Regular rate and rhythm, normal S1 and S2 without murmur, rub or gallop. ABDOMEN: Soft, nontender, not distended, normoactive bowel sounds, no guarding, no rebound, obese MUSCULOSKELETAL: Normal range of motion at all joints. No bony deformities or tenderness. No CVA tenderness. EXTREMITIES: 2+ pulses, warm, well-perfused. No calf tenderness. Trace pedal edema bilaterally NEUROLOGICAL: Cranial nerves II-XII intact. Normal speech. PSYCHIATRIC: Cooperative. Good eye contact. Appropriate mood and affect. SKIN: Warm, dry, normal turgor, RLE scars noted ASSESSMENT AND PLAN: 74 y/o M with PMH of polysubstance abuse (alcohol, cocaine, marihuana), copd, DM, HLD, DIDI who was sent from [facility] due to SOB Shortness of breath: COPD vs. Heart failure vs. Pulm HTN -Echo was a suboptimal study, normal EF, No signs of elevated PA Pressures Patient reports PND, Orthopnea, KELLER Patient will need a sleep study as an outpatient and likely repeat Echo with contrast vs. Additional cardiac imaging Taper Steroids, titrate off O2 CT chest reviewed Continue PRN Lasix Consider discharge today if patient is able to be titrated off oxygen Rest of plan as per resident note
--- NOTE | 2019-12-15 15:51 | PN ---
Physical Exam: SUBJECTIVE: Patient seen and examined this morning, more oriented. Librium protocol over. Ptn is requesting he be discharged back to his home. No acute disresss. Still satting low 90-92 when not on NC OBJECTIVE: Vital Signs Period Temp Pulse Resp BP Sys/Valencia Pulse Ox Last 24 Hr 97.9 F-98.9 F 69-84 20-22 120-148/54-77 90-96 GENERAL: The patient is awake, alert,in no acute distress. HEAD: Normal with no signs of trauma. EYES: PERRL, extraocular movements intact, sclera anicteric, conjunctiva clear. No ptosis. NECK: Trachea midline, full range of motion, supple. LUNGS: Decreased air entry b/l, although body habitus makes auscultation difficult HEART: S1, S2 heard without murmur, rub or gallop, however, body habitus makes auscultation difficult ABDOMEN: Soft, nontender, nondistended, normoactive bowel sounds, no guarding, no rebound. EXTREMITIES: PVD w/ hemosidderin deposition noted b/l in LE. 2+ pulses, warm, well-perfused, no edema. NEUROLOGICAL: Slurred speech, may be patients baseline gait not observed. PSYCH: Normal mood, normal affect. SKIN: Warm, dry, normal turgor Laboratory Results - last 24 hr CBC, BMP 12/15/19 06:40 12/15/19 06:40 Active Medications Active Medications Acetaminophen (Tylenol -) 1,000 mg PO Q6H PRN PRN Reason: PAIN LEVEL 1-5 Last Admin: 12/14/19 21:25 Dose: 1,000 mg Documented by: Albuterol/Ipratropium (Duoneb -) 1 amp NEB Q6H PRN PRN Reason: SHORTNESS OF BREATH Last Admin: 12/15/19 06:40 Dose: 1 amp Documented by: Artificial Tears (Artificial Tears) 1 drop OU BID [facility] Last Admin: 12/15/19 09:36 Dose: 1 drop Documented by: Aspirin (Asa -) 81 mg PO DAILY [facility] Last Admin: 12/15/19 09:35 Dose: 81 mg Documented by: Enoxaparin Sodium (Lovenox -) 40 mg SQ DAILY [facility] Last Admin: 12/15/19 09:35 Dose: 40 mg Documented by: Fluticasone Propionate (Flonase -) 1 spray NS BID [facility] Last Admin: 12/15/19 09:35 Dose: 1 spray Documented by: Folic Acid (Folic Acid -) 1 mg PO DAILY [facility] Last Admin: 12/15/19 09:34 Dose: 1 mg Documented by: Gabapentin (Neurontin -) 100 mg PO TID [facility] Last Admin: 12/15/19 13:37 Dose: 100 mg Documented by: Guaifenesin (Robitussin -) 10 ml PO Q6H PRN PRN Reason: COUGH Last Admin: 12/15/19 06:20 Dose: 10 ml Documented by: Insulin Aspart (Novolog Vial Sliding Scale -) 1 vial SQ ACHS [facility]; Protocol Last Admin: 12/15/19 17:13 Dose: 2 unit Documented by: Lisinopril (Prinivil) 20 mg PO DAILY [facility] Last Admin: 12/15/19 09:35 Dose: 20 mg Documented by: Multivitamins/Minerals/Vitamin C (Tab-A-Vit -) 1 tab PO DAILY [facility] Last Admin: 12/15/19 09:35 Dose: 1 tab Documented by: Polyethylene Glycol (Miralax (For Daily Use) -) 17 gm PO DAILY [facility] Last Admin: 12/15/19 09:42 Dose: 17 gm Documented by: Prednisone (Deltasone -) 40 mg PO DAILY [facility] ASSESSMENT/PLAN: 74yo M with PMHx of polysubstance abuse including alcohol (4 drinks/day), cocaine, marijuana last used 2 days before admission, afib not on eliquis (non- compliant), 1st degree AV Block, L anterior fascicular block, RBBB, obstructive lung disease, NIDDM, HLD, and DIDI presented from [facility] with SOB. Additionally had a mechanical fall while going for CT, not related to intoxication. FU imaging showed no pathology from the event Acute on Chronic COPD/Asthma Exacerbation -Hx of Prior Hospitalization for asthma/copd exacerbation -Previously intubated per patient -Extensive Smoking hx: 2PPD > 25 years -CT Chest: Moderate Emphysema upper lobes b/l -C/W Symbicort -C/W Duonebs -(12/14): Switched to Oral Prednisone 40mg QD -C/W Guafenisin for Cough -C/W Incentive Spirometer -Respiratory Request for Pre and Post O2 Acute on Chronic Diastolic CHF Exacerbation -Per Cardiology: Does not need Telemetry, likely COPD exacerbation -Negative Troponins -BNP <400 -ECHO (12/14): EF 60%; Study non-diagnostic 2/2 body size. -Doppler: Negative for DVT b/l -Avoid BB 2/2 cocaine use -Outpatient CT Scan to determine Aortic Diameter -FU outpatient cardiology workup --> consider cardiac MRI -Trial of 40mg IV Lasix --> transition to oral PRN for outpatient -Monitor BP -Monitor I/Os Polysubstance Abuse -Hx of Alcohol, Cocaine, Marijuana, Nicotine Abuse -Last Drink & Cocaine 2 days ago -Drinks 4 shots/nips per day -Previously Seen at [facility] -Librium protocol: Completed Mechanical Fall While Going for CT Scan -No evidence of acute pathology on imaging following the fall -Monitor Neuro status Atrial Fibrillation -Per Cardiology now in Sinus Rhythm -Monitor for palpitation Non Insulin Dependent Diabetes Mellitus -HBa1c: 6.4 -ISS -Blood Glucose Checks Hypertension -Monitor BP -C/w Lasix -C/w Lisinopril PPx DVT: Lovenox 40 GI: None GOALS OF CARE -FU Social Work Consult -FU PT Consult Dispo: Continue to monitor on Medical Floors Visit type - Emergency Visit Emergency Visit: No - New Patient This patient is new to me today: No - Critical Care Critical Care patient: No - Discharge Referral [facility] to [facility] Med P.C.: No - Medication Review Med list reviewed for High Risk Meds patients 65 and older: Yes ATTENDING PHYSICIAN STATEMENT I saw and evaluated the patient. I reviewed the resident's note and discussed the case with the resident. I agree with the resident's findings and plan as documented. SUBJECTIVE: OBJECTIVE: ASSESSMENT AND PLAN:
[2019-12-15 16:10] VITALS: BMI 43.2
[2019-12-15] MEDS ORDERED: FUROSEMIDE 40 MG/4 ML INJECTABLE VIAL IVPUSH ONE (17:02)
[2019-12-15] MEDS: ACETAMINOPHEN 500 MG TABLET (FP) PO PRN (20:01)
[2019-12-15] MEDS: BENZOCAINE/MENTH/CETYLPYRD CL 1 EACH LOZENGE MM PRN (20:02)
[2019-12-15] MEDS ORDERED: oxyCODONE HCL 5 MG TABLET PO ONE (21:00)
[2019-12-15] MEDS ORDERED: ACETAMINOPHEN 325 MG TABLET (FP) PO ONE (21:00)
[2019-12-15] MEDS ORDERED: methylPREDNISolone NA SUCC 40 MG/1 ML VIAL IVPUSH SCH (22:00)
[2019-12-16] MEDS: GABAPENTIN 100 MG CAPSULE PO SCH ×3 (06:34→21:08)
[2019-12-16] MEDS: INSULIN SLIDING SCALE (NOVOLOG) 1 VIAL SQ SCH ×5 (06:34→21:13)
--- NOTE | 2019-12-16 07:29 | PN ---
Progress Note, Physician History of Present Illness: pulmonary alert,oob-chair,feeling better,less dyspneic,+ c/o back pain - Current Medication List Current Medications: Active Medications Acetaminophen (Tylenol -) 1,000 mg PO Q6H PRN PRN Reason: PAIN LEVEL 1-5 Last Admin: 12/15/19 20:01 Dose: 1,000 mg Documented by: Albuterol/Ipratropium (Duoneb -) 1 amp NEB Q6H PRN PRN Reason: SHORTNESS OF BREATH Last Admin: 12/15/19 20:24 Dose: 1 amp Documented by: Artificial Tears (Artificial Tears) 1 drop OU BID [facility] Last Admin: 12/15/19 21:27 Dose: 1 drop Documented by: Aspirin (Asa -) 81 mg PO DAILY [facility] Last Admin: 12/15/19 09:35 Dose: 81 mg Documented by: Benzocaine/Menthol (Cepacol Lozenge -) 1 each MM PRN PRN PRN Reason: SORE THROAT Last Admin: 12/15/19 20:02 Dose: 1 each Documented by: Enoxaparin Sodium (Lovenox -) 40 mg SQ DAILY [facility] Last Admin: 12/15/19 09:35 Dose: 40 mg Documented by: Fluticasone Propionate (Flonase -) 1 spray NS BID [facility] Last Admin: 12/15/19 21:27 Dose: 1 spray Documented by: Folic Acid (Folic Acid -) 1 mg PO DAILY [facility] Last Admin: 12/15/19 09:34 Dose: 1 mg Documented by: Gabapentin (Neurontin -) 100 mg PO TID [facility] Last Admin: 12/16/19 06:34 Dose: 100 mg Documented by: Guaifenesin (Robitussin -) 10 ml PO Q6H PRN PRN Reason: COUGH Last Admin: 12/15/19 06:20 Dose: 10 ml Documented by: Insulin Aspart (Novolog Vial Sliding Scale -) 1 vial SQ [facility]; Protocol Last Admin: 12/16/19 06:34 Dose: Not Given Documented by: Lisinopril (Prinivil) 20 mg PO DAILY [facility] Last Admin: 12/15/19 09:35 Dose: 20 mg Documented by: Multivitamins/Minerals/Vitamin C (Tab-A-Vit -) 1 tab PO DAILY [facility] Last Admin: 12/15/19 09:35 Dose: 1 tab Documented by: Polyethylene Glycol (Miralax (For Daily Use) -) 17 gm PO DAILY [facility] Last Admin: 12/15/19 09:42 Dose: 17 gm Documented by: Prednisone (Deltasone -) 40 mg PO DAILY [facility] - Objective Vital Signs: Vital Signs Temperature 98.4 F 12/16/19 05:53 Pulse Rate 81 12/16/19 05:53 Respiratory Rate 20 12/16/19 05:53 Blood Pressure 125/61 12/16/19 05:53 O2 Sat by Pulse Oximetry (%) 98 12/16/19 05:53 Constitutional: Yes: Calm, Obese Eyes: Yes: WNL HENT: Yes: WNL Neck: Yes: WNL Cardiovascular: Yes: Regular Rate and Rhythm, S1, S2 Respiratory: Yes: Diminished Gastrointestinal: Yes: Normal Bowel Sounds, Abdomen, Obese Extremities: Yes: WNL Edema: Yes Labs: CBC, BMP Problem List - Problems (1) Acute respiratory failure with hypoxia and hypercarbia Code(s): J96.01 - ACUTE RESPIRATORY FAILURE WITH HYPOXIA; J96.02 - ACUTE RESPIRATORY FAILURE WITH HYPERCAPNIA (2) Dyspnea Code(s): R06.00 - DYSPNEA, UNSPECIFIED (3) Cocaine dependence, uncomplicated Code(s): F14.20 - COCAINE DEPENDENCE, UNCOMPLICATED (4) Diabetes Code(s): E11.9 - TYPE 2 DIABETES MELLITUS WITHOUT COMPLICATIONS (5) HLD (hyperlipidemia) Code(s): E78.5 - HYPERLIPIDEMIA, UNSPECIFIED (6) Non-compliance Code(s): Z91.19 - PATIENT'S NONCOMPLIANCE W OTH MEDICAL TREATMENT AND REGIMEN (7) Obesity (BMI 30-39.9) Code(s): E66.9 - OBESITY, UNSPECIFIED (8) Sleep apnea Code(s): G47.30 - SLEEP APNEA, UNSPECIFIED (9) COPD (chronic obstructive pulmonary disease) Code(s): J44.9 - CHRONIC OBSTRUCTIVE PULMONARY DISEASE, UNSPECIFIED (10) Thrombocytopenia Code(s): D69.6 - THROMBOCYTOPENIA, UNSPECIFIED Assessment/Plan IMP ACUTE HYPOXEMIC/HYPERCAPNEIC RESPIRATORY FAILURE COPD WITH ACUTE EXACERBATION IMPROVING POLYSUBSTANCE ABUSE S/P MECHANICAL FALL DM H/O DIDI HLD THROMBOCYTOPENIA PLAN SUPPLEMENTAL O2 INHALED BRONCHODILATORS PREDNISONE RATE CONTROL MONITOR LYTES,PLT CT DR MORGAN Problem List - Problems (1) Acute respiratory failure with hypoxia and hypercarbia Code(s): J96.01 - ACUTE RESPIRATORY FAILURE WITH HYPOXIA; J96.02 - ACUTE RESPIRATORY FAILURE WITH HYPERCAPNIA (2) Dyspnea Code(s): R06.00 - DYSPNEA, UNSPECIFIED (3) Cocaine dependence, uncomplicated Code(s): F14.20 - COCAINE DEPENDENCE, UNCOMPLICATED (4) Diabetes Code(s): E11.9 - TYPE 2 DIABETES MELLITUS WITHOUT COMPLICATIONS (5) HLD (hyperlipidemia) Code(s): E78.5 - HYPERLIPIDEMIA, UNSPECIFIED (6) Non-compliance Code(s): Z91.19 - PATIENT'S NONCOMPLIANCE W OTH MEDICAL TREATMENT AND REGIMEN (7) Obesity (BMI 30-39.9) Code(s): E66.9 - OBESITY, UNSPECIFIED (8) Sleep apnea Code(s): G47.30 - SLEEP APNEA, UNSPECIFIED (9) COPD (chronic obstructive pulmonary disease) Code(s): J44.9 - CHRONIC OBSTRUCTIVE PULMONARY DISEASE, UNSPECIFIED (10) Thrombocytopenia Code(s): D69.6 - THROMBOCYTOPENIA, UNSPECIFIED
[2019-12-16] MEDS ORDERED: PT OWN MED DRAWER 7, Y5N ONE (09:58)
[2019-12-16] MEDS: FLUTICASONE PROP 0.05% 16 GM NASAL SPRAY NS SCH ×2 (10:07→21:08)
[2019-12-16] MEDS: ACETAMINOPHEN 500 MG TABLET (FP) PO PRN ×2 (10:07→21:19)
[2019-12-16] MEDS: guaiFENesin 200 MG/10 ML 10 ML UNIT-DOSE CUPS PO PRN (10:07)
[2019-12-16] MEDS: POLYETHYLENE GLYCOL 3350 119 GM BTL PO SCH (10:07)
[2019-12-16] MEDS: predniSONE 20 MG TABLET (UD) PO SCH (10:07)
[2019-12-16] MEDS: ENOXAPARIN NA (PORCINE) 40 MG/0.4 ML DISP.SYRIN SQ SCH (10:08)
[2019-12-16] MEDS: ARTIFICIAL TEARS (POLYVINYL ALCOHOL) OPTH DROPS OU SCH ×2 (10:08→21:09)
[2019-12-16] MEDS: ASPIRIN 81 MG CHEWABLE TABLETS PO SCH (10:08)
[2019-12-16] MEDS: LISINOPRIL 20 MG TABLET (FP) PO SCH (10:08)
[2019-12-16] MEDS: FOLIC ACID 1 MG TABLET (FP) PO SCH (10:08)
[2019-12-16] MEDS: MULTIVITAMINS (DAILY MVI) TABLET (FP) PO SCH (10:08)
[2019-12-16] MEDS: BENZOCAINE/MENTH/CETYLPYRD CL 1 EACH LOZENGE MM PRN (10:08)
[2019-12-16] MEDS: ALBUTEROL SO4 2.5/IPRATROPIUM 0.5 INH SOL 3 ML VIAL.NEB. NEB PRN ×2 (10:43→20:16)
[2019-12-16] MEDS ORDERED: INSULIN (NOVOLOG) ASPART 100 UNITS/ML 10ML VIAL ONE ×3 (11:10→20:23)
[2019-12-16] MEDS ORDERED: FUROSEMIDE 40 MG/4 ML INJECTABLE VIAL IVPUSH ONE (11:10)
--- NOTE | 2019-12-16 13:29 | PN ---
Progress Note (short form) - Note Progress Note: s: no chest pain, palps, dizziness, dyspnea. Current Medications Generic Name Dose Route Start Last Admin Trade Name Freq PRN Reason Stop Dose Admin Acetaminophen 1,000 mg 12/13/19 21:43 12/16/19 10:07 Tylenol - PO 1,000 mg Q6H PRN Administration PAIN LEVEL 1-5 Albuterol/Ipratropium 1 amp 12/12/19 07:05 12/16/19 10:43 Duoneb - NEB 1 amp Q6H PRN Administration SHORTNESS OF BREATH Artificial Tears 1 drop 12/14/19 15:00 12/16/19 10:08 Artificial Tears OU 1 drop BID [facility] Administration Aspirin 81 mg 12/12/19 10:00 12/16/19 10:08 Asa - PO 81 mg DAILY [facility] Administration Benzocaine/Menthol 1 each 12/15/19 18:09 12/16/19 10:08 Cepacol Lozenge - MM 1 each PRN PRN Administration SORE THROAT Enoxaparin Sodium 40 mg 12/12/19 10:00 12/16/19 10:08 Lovenox - SQ 40 mg DAILY [facility] Administration Fluticasone Propionate 1 spray 12/14/19 14:50 12/16/19 10:07 Flonase - NS 1 spray BID [facility] Administration Folic Acid 1 mg 12/12/19 10:00 12/16/19 10:08 Folic Acid - PO 1 mg DAILY [facility] Administration Gabapentin 100 mg 12/14/19 14:30 12/16/19 06:34 Neurontin - PO 100 mg TID [facility] Administration Guaifenesin 10 ml 12/13/19 12:40 12/16/19 10:07 Robitussin - PO 10 ml Q6H PRN Administration COUGH Insulin Aspart 1 vial 12/11/19 22:00 12/16/19 11:23 Novolog Vial Sliding Scale - SQ Not Given ACHS [facility] Protocol Lisinopril 20 mg 12/12/19 10:00 12/16/19 10:08 Prinivil PO 20 mg DAILY [facility] Administration Multivitamins/Minerals/Vitamin C 1 tab 12/12/19 10:00 12/16/19 10:08 Tab-A-Vit - PO 1 tab DAILY [facility] Administration Polyethylene Glycol 17 gm 12/13/19 12:45 12/16/19 10:07 Miralax (For Daily Use) - PO 17 gm DAILY [facility] Administration Prednisone 40 mg 12/16/19 10:00 12/16/19 10:07 Deltasone - PO 40 mg DAILY [facility] Administration Vital Signs Period Temp Pulse Resp BP Sys/Valencia Pulse Ox Last 24 Hr 97.7 F-98.5 F 71-92 20-20 117-148/61-94 90-98 Constitutional: Yes: No Distress, Calm Cardiovascular: Yes: Regular Rate and Rhythm Respiratory: Yes: Other (bilaterally decreased breath sounds diffusely; no rales or active wheezing) Gastrointestinal: Yes: Soft (nt), Abdomen, Obese Edema: No Neurological: Yes: Alert, Oriented no jaundice diaphoresis not agitated aox3 Assessment/Plan IMP: Polysubstance abuse PAF, nonadherent with AC Chronic COPD with acute exacerbation Mechanical fall, nasal fracture REC: 1. Polysub abuse: -Librium taper as per primary team -Rehab upon discharge 2. PAF: documented PAF, now in normal sinus rhythm -per reports non compliant w/ AC -Patient does not seem to be safe candidate for anticoagulation -low dose aspirin started, the safer option in this case. -Outpatient eval for suspected DIDI 3. AECOPD: -cont nebs/supp O2 -Pulm eval pending -Do not suspect sig component CHF given clear lung exam and BNP < 400, TnI negative. -Reasonable to give trial Lasix for 24-48 hours 4. [facility] fall: -falls precations recommended -Not ideal candidate for anticoagulation 5. RBBB/LAHB: -Outpt cardiology f/u 6. Dilated aorta: mild -Smoking cessation -Drug cessation -Cont Lisinopril for target BP < 140/90 -defer beta darby here with sig COPD (potential for bronchospasm) and + cocaine use (unopposed alpha effect can precipitate malignant hypertension) -echo 11/2019: extremely technically difficult- EF could not be assessed, Thoracic aorta mildly dilated. -recommend outpatient contrast echo for EF assessment and yearly for aorta -Consider CT chest for additional imaging of aortic diameter
--- NOTE | 2019-12-16 15:08 | PN ---
Physical Exam: SUBJECTIVE: Patient seen and examined, more alert this morning, now off librium. States he is short of breath, however that it is not different than his baseline. Currently working with social work to obtain Home O2. OBJECTIVE: Vital Signs Period Temp Pulse Resp BP Sys/Valencia Pulse Ox Last 24 Hr 97.7 F-98.5 F 71-111 20-20 117-144/61-94 88-98 GENERAL: Morbid Obesity. The patient is awake, alert,in no acute distress. HEAD: Normal with no signs of trauma. EYES: PERRL, extraocular movements intact, sclera anicteric, conjunctiva clear. No ptosis. NECK: Trachea midline, full range of motion, supple. LUNGS: Decreased air entry b/l, although body habitus makes auscultation difficult HEART: S1, S2 heard without murmur, rub or gallop, however, body habitus makes auscultation difficult ABDOMEN: Soft, nontender, nondistended, normoactive bowel sounds, no guarding, no rebound. EXTREMITIES: PVD w/ hemosidderin deposition noted b/l in LE. 2+ pulses, warm, well-perfused, no edema. NEUROLOGICAL: Slurred speech, may be patients baseline gait not observed. PSYCH: Normal mood, normal affect. SKIN: Warm, dry, normal turgor Laboratory Results - last 24 hr 12/15/19 12/16/19 12/16/19 16:32 06:32 11:21 POC Glucometer 172 100 135 Active Medications Generic Name Dose Route Start Last Admin Trade Name Freq PRN Reason Stop Dose Admin Acetaminophen 1,000 mg 12/13/19 21:43 12/16/19 10:07 Tylenol - PO 1,000 mg Q6H PRN Administration PAIN LEVEL 1-5 Albuterol/Ipratropium 1 amp 12/12/19 07:05 12/16/19 10:43 Duoneb - NEB 1 amp Q6H PRN Administration SHORTNESS OF BREATH Artificial Tears 1 drop 12/14/19 15:00 12/16/19 10:08 Artificial Tears OU 1 drop BID [facility] Administration Aspirin 81 mg 12/12/19 10:00 12/16/19 10:08 Asa - PO 81 mg DAILY [facility] Administration Benzocaine/Menthol 1 each 12/15/19 18:09 12/16/19 10:08 Cepacol Lozenge - MM 1 each PRN PRN Administration SORE THROAT Enoxaparin Sodium 40 mg 12/12/19 10:00 12/16/19 10:08 Lovenox - SQ 40 mg DAILY [facility] Administration Fluticasone Propionate 1 spray 12/14/19 14:50 12/16/19 10:07 Flonase - NS 1 spray BID [facility] Administration Folic Acid 1 mg 12/12/19 10:00 12/16/19 10:08 Folic Acid - PO 1 mg DAILY [facility] Administration Gabapentin 100 mg 12/14/19 14:30 12/16/19 14:15 Neurontin - PO 100 mg TID [facility] Administration Guaifenesin 10 ml 12/13/19 12:40 12/16/19 10:07 Robitussin - PO 10 ml Q6H PRN Administration COUGH Insulin Aspart 1 vial 12/11/19 22:00 12/16/19 11:23 Novolog Vial Sliding Scale - SQ Not Given ACHS [facility]PL[facility] Protocol Lisinopril 20 mg 12/12/19 10:00 12/16/19 10:08 Prinivil PO 20 mg DAILY [facility] Administration Multivitamins/Minerals/Vitamin C 1 tab 12/12/19 10:00 12/16/19 10:08 Tab-A-Vit - PO 1 tab DAILY [facility] Administration Polyethylene Glycol 17 gm 12/13/19 12:45 12/16/19 10:07 Miralax (For Daily Use) - PO 17 gm DAILY [facility] Administration Prednisone 40 mg 12/16/19 10:00 12/16/19 10:07 Deltasone - PO 40 mg DAILY [facility] Administration ASSESSMENT/PLAN: 74yo M with PMHx of polysubstance abuse including alcohol (4 drinks/day), cocaine, marijuana last used 2 days before admission, afib not on eliquis (non- compliant), 1st degree AV Block, L anterior fascicular block, RBBB, obstructive lung disease, NIDDM, HLD, and DIDI presented from [facility] with SOB. Additionally had a mechanical fall while going for CT, not related to intoxication. FU imaging showed no pathology from the event Acute on Chronic COPD/Asthma Exacerbation -Hx of Prior Hospitalization for asthma/copd exacerbation -Previously intubated per patient -Extensive Smoking hx: 2PPD > 25 years -CT Chest: Moderate Emphysema upper lobes b/l -C/W Symbicort -C/W Duonebs -(12/14): Switched to Oral Prednisone 40mg QD --> Will taper upon discharge -C/W Guafenisin for Cough -C/W Incentive Spirometer -Pre-Post O2: -Resting Without O2: 86%, Pulse 73 -Exercise with O2 2L NC: 88%, Pulse 111 -Exercise w.o O2: Not able to complete -Home O2 process started Acute on Chronic Diastolic CHF Exacerbation -Per Cardiology: Does not need Telemetry, likely COPD exacerbation -Negative Troponins -BNP <400 -ECHO (12/14): EF 60%; Study non-diagnostic 2/ body size. -Doppler: Negative for DVT b/l -Avoid BB 2/2 cocaine use -Outpatient CT Scan to determine Aortic Diameter -FU outpatient cardiology workup --> consider cardiac MRI -Trial of 40mg IV Lasix --> good output, clinical improvement --> transition to oral PRN for outpatient -Monitor BP -Monitor I/Os Polysubstance Abuse -Hx of Alcohol, Cocaine, Marijuana, Nicotine Abuse -Last Drink & Cocaine 2 days ago -Drinks 4 shots/nips per day -[facility]: Completed Mechanical Fall While Going for CT Scan -No evidence of acute pathology on imaging following the fall -Monitor Neuro status Atrial Fibrillation -Per Cardiology now in Sinus Rhythm -Monitor for palpitation Non Insulin Dependent Diabetes Mellitus -HBa1c: 6.4 -ISS -Blood Glucose Checks Hypertension -Monitor BP -C/w Lasix -C/w Lisinopril PPx DVT: Lovenox 40 GI: None Dispo: Continue to monitor on Medical Floors Visit type - Emergency Visit Emergency Visit: No - New Patient This patient is new to me today: No - Critical Care Critical Care patient: No - Discharge Referral Referred to [facility] Med P.C.: No - Medication Review Med list reviewed for High Risk Meds patients 65 and older: Yes ATTENDING PHYSICIAN STATEMENT I saw and evaluated the patient. I reviewed the resident's note and discussed the case with the resident. I agree with the resident's findings and plan as documented. SUBJECTIVE: OBJECTIVE: ASSESSMENT AND PLAN:
--- NOTE | 2019-12-16 16:23 | PN ---
Teaching Attending Note Name of Resident: Efren Goldstein ATTENDING PHYSICIAN STATEMENT I saw and evaluated the patient. I reviewed the resident's note and discussed the case with the resident. I agree with the resident's findings and plan as documented. SUBJECTIVE: patient reports taht he thinks he needs O2 at home as he is always SOB OBJECTIVE: Vital Signs Period Temp Pulse Resp BP Sys/Valencia Pulse Ox Last 24 Hr 97.7 F-98.5 F 71-111 20-20 117-144/61-94 88-98 GENERAL: Awake, alert, in no acute distress. HEAD: Normal with no signs of trauma. EYES: Pupils equal, round and reactive to light, extraocular movements intact, sclera anicteric, conjunctiva clear. EARS, NOSE, THROAT: Ears normal, nares patent, Moist mucous membranes. NECK: Normal range of motion, No JVD, LUNGS: Breath sounds equal, clear to auscultation bilaterally. No wheezes, and no crackles. No accessory muscle use. HEART: Regular rate and rhythm, normal S1 and S2 without murmur, rub or gallop. ABDOMEN: Soft, nontender, not distended, normoactive bowel sounds, no guarding, no rebound, obese MUSCULOSKELETAL: Normal range of motion at all joints. No bony deformities or tenderness. No CVA tenderness. EXTREMITIES: 2+ pulses, warm, well-perfused. No calf tenderness. Trace pedal edema bilaterally NEUROLOGICAL: Cranial nerves II-XII intact. Normal speech. PSYCHIATRIC: Cooperative. Good eye contact. Appropriate mood and affect. SKIN: Warm, dry, normal turgor, RLE scars noted ASSESSMENT AND PLAN: 74 y/o M with PMH of polysubstance abuse (alcohol, cocaine, marihuana), copd, DM, HLD, DIDI who was sent from [facility] due to SOB Shortness of breath: COPD vs. Heart failure vs. Pulm HTN -Echo was a suboptimal study, normal EF, No signs of elevated PA Pressures Patient reports PND, Orthopnea, KELLER Patient will need a sleep study as an outpatient and likely repeat Echo with contrast vs. Additional cardiac imaging Taper Steroids, titrate O2 CT chest reviewed Continue Lasix 40mg PO Qday as patient likely has some diastolic disfunction Outpatient Pulm, Cardio follow up Plan for discharge tomorrow with Po Lasix Rest of plan as per resident note
[2019-12-16 16:51] LABS: BASO % 0.1 % (0-2.0); EOS % 0.2 % (0-4.5); HEMATOCRIT 49.7 % (35.4-49); HEMOGLOBIN 15.9 GM/dL (11.7-16.9); LYMPH % 13.3 % (8-40); MCH 29.7 pg (25.7-33.7); MEAN PLT VOLUME 9.9 fl (7.5-11.1); MONO % 4.7 % (3.8-10.2); NEUT % 81.7 % (42.8-82.8); PLATELET COUNT 126 K/MM3 (134-434); RBC 5.35 M/mm3 (4.00-5.60); RDW 17.1 % (11.9-15.9); WHITE BLOOD COUNT 11.1 K/mm3 (4.0-10.0)
[2019-12-16 17:18] LABS: BLOOD UREA NITROGEN 30.6 mg/dL (7-18); CALCIUM 8.4 mg/dL (8.5-10.1); CREATININE 1.3 mg/dL (0.55-1.3); POTASSIUM 4.6 mmol/L (3.5-5.1)
[2019-12-17] MEDS: ALBUTEROL SO4 2.5/IPRATROPIUM 0.5 INH SOL 3 ML VIAL.NEB. NEB PRN (02:30)
[2019-12-17] MEDS: GABAPENTIN 100 MG CAPSULE PO SCH ×3 (05:45→22:20)
[2019-12-17] MEDS: BENZOCAINE/MENTH/CETYLPYRD CL 1 EACH LOZENGE MM PRN (05:47)
[2019-12-17] MEDS: guaiFENesin 200 MG/10 ML 10 ML UNIT-DOSE CUPS PO PRN (05:47)
[2019-12-17] MEDS: INSULIN SLIDING SCALE (NOVOLOG) 1 VIAL SQ SCH ×4 (06:20→22:19)
[2019-12-17 08:23] LABS: BASO % 0.2 % (0-2.0); EOS % 0.8 % (0-4.5); HEMATOCRIT 50.1 % (35.4-49); MCH 29.8 pg (25.7-33.7); MCHC 31.9 g/dl (32.0-35.9); MEAN CELL VOLUME 93.6 fl (80-96); MEAN PLT VOLUME 9.5 fl (7.5-11.1); MONO % 6.6 % (3.8-10.2); NEUT % 55.4 % (42.8-82.8); PLATELET COUNT 137 K/MM3 (134-434); RBC 5.36 M/mm3 (4.00-5.60); RDW 17.1 % (11.9-15.9); WHITE BLOOD COUNT 11.2 K/mm3 (4.0-10.0)
[2019-12-17 08:44] LABS: POTASSIUM 4.1 mmol/L (3.5-5.1)
[2019-12-17 08:58] LABS: BLOOD UREA NITROGEN 27.9 mg/dL (7-18); CALCIUM 8.7 mg/dL (8.5-10.1)
[2019-12-17] MEDS: FOLIC ACID 1 MG TABLET (FP) PO SCH (09:53)
[2019-12-17] MEDS: ACETAMINOPHEN 500 MG TABLET (FP) PO PRN (09:53)
[2019-12-17] MEDS: LISINOPRIL 20 MG TABLET (FP) PO SCH (09:53)
[2019-12-17] MEDS: ENOXAPARIN NA (PORCINE) 40 MG/0.4 ML DISP.SYRIN SQ SCH (09:53)
[2019-12-17] MEDS: FLUTICASONE PROP 0.05% 16 GM NASAL SPRAY NS SCH ×2 (09:54→22:20)
[2019-12-17] MEDS: MULTIVITAMINS (DAILY MVI) TABLET (FP) PO SCH (09:54)
[2019-12-17] MEDS: predniSONE 20 MG TABLET (UD) PO SCH (09:54)
[2019-12-17] MEDS: POLYETHYLENE GLYCOL 3350 119 GM BTL PO SCH (09:54)
[2019-12-17] MEDS: ARTIFICIAL TEARS (POLYVINYL ALCOHOL) OPTH DROPS OU SCH ×2 (09:54→22:20)
[2019-12-17] MEDS: ASPIRIN 81 MG CHEWABLE TABLETS PO SCH (09:54)
--- NOTE | 2019-12-17 12:35 | PN ---
Progress Note (short form) - Note Progress Note: s: No CP/palps/dizziness; sob improving Current Medications Generic Name Dose Route Start Last Admin Trade Name Freq PRN Reason Stop Dose Admin Acetaminophen 1,000 mg 12/13/19 21:43 12/17/19 09:53 Tylenol - PO 1,000 mg Q6H PRN Administration PAIN LEVEL 1-5 Artificial Tears 1 drop 12/14/19 15:00 12/17/19 09:54 Artificial Tears OU 1 drop BID VONNIE Administration Aspirin 81 mg 12/12/19 10:00 12/17/19 09:54 Asa - PO 81 mg DAILY VONNIE Administration Benzocaine/Menthol 1 each 12/15/19 18:09 12/17/19 05:47 Cepacol Lozenge - MM 1 each PRN PRN Administration SORE THROAT Enoxaparin Sodium 40 mg 12/12/19 10:00 12/17/19 09:53 Lovenox - SQ 40 mg DAILY VONNIE Administration Fluticasone Propionate 1 spray 12/14/19 14:50 12/17/19 09:54 Flonase - NS 1 spray BID VONNIE Administration Folic Acid 1 mg 12/12/19 10:00 12/17/19 09:53 Folic Acid - PO 1 mg DAILY VONNIE Administration Gabapentin 100 mg 12/14/19 14:30 12/17/19 05:45 Neurontin - PO 100 mg TID VONNIE Administration Guaifenesin 10 ml 12/13/19 12:40 12/17/19 05:47 Robitussin - PO 10 ml Q6H PRN Administration COUGH Insulin Aspart 1 vial 12/11/19 22:00 12/17/19 12:20 Novolog Vial Sliding Scale - SQ Not Given ACHS [facility] Protocol Lisinopril 20 mg 12/12/19 10:00 12/17/19 09:53 Prinivil PO 20 mg DAILY VONNIE Administration Multivitamins/Minerals/Vitamin C 1 tab 12/12/19 10:00 12/17/19 09:54 Tab-A-Vit - PO 1 tab DAILY VONNIE Administration Polyethylene Glycol 17 gm 12/13/19 12:45 12/17/19 09:54 Miralax (For Daily Use) - PO Not Given DAILY VONNIE Prednisone 40 mg 12/16/19 10:00 12/17/19 09:54 Deltasone - PO 40 mg DAILY VONNIE Administration Vital Signs Period Temp Pulse Resp BP Sys/Valencia Pulse Ox Last 24 Hr 97.7 F-98.2 F 75-111 20-20 125-132/60-66 88-95 Constitutional: Yes: No Distress, Calm Cardiovascular: Yes: Regular Rate and Rhythm Respiratory: Yes: Other (bilaterally decreased breath sounds diffusely; no rales or active wheezing) Gastrointestinal: Yes: Soft (nt), Abdomen, Obese Edema: No Neurological: Yes: Alert, Oriented no jaundice diaphoresis Labs: CBC, BMP 12/17/19 07:05 12/17/19 07:05 Assessment/Plan IMP: Polysubstance abuse PAF, nonadherent with AC Chronic COPD with acute exacerbation Mechanical fall, nasal fracture REC: 1. Polysub abuse: -Librium taper as per primary team -Rehab upon discharge 2. PAF: documented PAF, now in normal sinus rhythm -per reports non compliant w/ AC -Patient does not seem to be safe candidate for anticoagulation -low dose aspirin started, the safer option in this case. -Outpatient eval for suspected DIDI 3. AECOPD: -cont nebs/supp O2 -Pulm following -Do not suspect sig component CHF given clear lung exam and BNP < 400, TnI negative. 4. [facility] fall: -falls precations recommended -Not ideal candidate for anticoagulation 5. RBBB/LAHB: -Outpt cardiology f/u 6. Dilated aorta: mild -Smoking cessation -Drug cessation -Cont Lisinopril for target BP < 140/90 -defer beta darby here with sig COPD (potential for bronchospasm) and + cocaine use (unopposed alpha effect can precipitate malignant hypertension) -echo 11/2019: extremely technically difficult- EF could not be assessed, Thoracic aorta mildly dilated. -recommend outpatient contrast echo for EF assessment and yearly for aorta -Consider CT chest for additional imaging of aortic diameter
--- NOTE | 2019-12-17 13:50 | PN ---
Progress Note (short form) - Note Progress Note: PULMONARY States breathing is improving. +nonproductive cough. Desaturated off oxygen. Vital Signs Period Temp Pulse Resp BP Sys/Valencia Pulse Ox Last 24 Hr 97.7 F-98.2 F 75-111 20-20 125-132/60-66 88-95 Gen: NAD at rest Heart: RRR Lung: decreased breath sounds at the bases Abd: soft, nontender Ext: no edema CBC, BMP 12/17/19 07:05 12/17/19 07:05 Active Medications Acetaminophen (Tylenol -) 1,000 mg PO Q6H PRN PRN Reason: PAIN LEVEL 1-5 Last Admin: 12/17/19 09:53 Dose: 1,000 mg Documented by: Artificial Tears (Artificial Tears) 1 drop OU BID [facility] Last Admin: 12/17/19 09:54 Dose: 1 drop Documented by: Aspirin (Asa -) 81 mg PO DAILY [facility] Last Admin: 12/17/19 09:54 Dose: 81 mg Documented by: Benzocaine/Menthol (Cepacol Lozenge -) 1 each MM PRN PRN PRN Reason: SORE THROAT Last Admin: 12/17/19 05:47 Dose: 1 each Documented by: Enoxaparin Sodium (Lovenox -) 40 mg SQ DAILY [facility] Last Admin: 12/17/19 09:53 Dose: 40 mg Documented by: Fluticasone Propionate (Flonase -) 1 spray NS BID [facility] Last Admin: 12/17/19 09:54 Dose: 1 spray Documented by: Folic Acid (Folic Acid -) 1 mg PO DAILY [facility] Last Admin: 12/17/19 09:53 Dose: 1 mg Documented by: Gabapentin (Neurontin -) 100 mg PO TID [facility] Last Admin: 12/17/19 05:45 Dose: 100 mg Documented by: Guaifenesin (Robitussin -) 10 ml PO Q6H PRN PRN Reason: COUGH Last Admin: 12/17/19 05:47 Dose: 10 ml Documented by: Insulin Aspart (Novolog Vial Sliding Scale -) [address] [facility]; Protocol Last Admin: 12/17/19 12:20 Dose: Not Given Documented by: Lisinopril (Prinivil) 20 mg PO DAILY [facility] Last Admin: 12/17/19 09:53 Dose: 20 mg Documented by: Multivitamins/Minerals/Vitamin C (Tab-A-Vit -) 1 tab PO DAILY [facility] Last Admin: 12/17/19 09:54 Dose: 1 tab Documented by: Polyethylene Glycol (Miralax (For Daily Use) -) 17 gm PO DAILY [facility] Last Admin: 12/17/19 09:54 Dose: Not Given Documented by: Prednisone (Deltasone -) 40 mg PO DAILY [facility] Last Admin: 12/17/19 09:54 Dose: 40 mg Documented by: A/P Acute COPD Exacerbation Polysubstance Abuse Atrial Fibrillation Hyperlipidemia DIDI Thrombocytopenia HTN DM Likely DIDI - prednisone taper - inhaled bronchodilators - O2 to keep Spo2 >90% - will need home O2 - DVT prophylaxis
--- NOTE | 2019-12-17 15:31 | PN ---
Teaching Attending Note Name of Resident: Efren Goldstein ATTENDING PHYSICIAN STATEMENT I saw and evaluated the patient. I reviewed the resident's note and discussed the case with the resident. I agree with the resident's findings and plan as documented. SUBJECTIVE: Patient feels well this morning, ready for discharge home OBJECTIVE: Vital Signs Period Temp Pulse Resp BP Sys/Valencia Pulse Ox Last 24 Hr 97.7 F-98.5 F 75-85 20-20 125-132/60-72 90-95 GENERAL: Awake, alert, in no acute distress. HEAD: Normal with no signs of trauma. EYES: Pupils equal, round and reactive to light, extraocular movements intact, sclera anicteric, conjunctiva clear. EARS, NOSE, THROAT: Ears normal, nares patent, Moist mucous membranes. NECK: Normal range of motion, No JVD, LUNGS: Breath sounds equal, clear to auscultation bilaterally. No wheezes, and no crackles. No accessory muscle use. HEART: Regular rate and rhythm, normal S1 and S2 without murmur, rub or gallop. ABDOMEN: Soft, nontender, not distended, normoactive bowel sounds, no guarding, no rebound, obese MUSCULOSKELETAL: Normal range of motion at all joints. No bony deformities or tenderness. No CVA tenderness. EXTREMITIES: 2+ pulses, warm, well-perfused. No calf tenderness. Trace pedal edema bilaterally NEUROLOGICAL: Cranial nerves II-XII intact. Normal speech. PSYCHIATRIC: Cooperative. Good eye contact. Appropriate mood and affect. SKIN: Warm, dry, normal turgor, RLE scars noted ASSESSMENT AND PLAN: 74 y/o M with PMH of polysubstance abuse (alcohol, cocaine, marihuana), copd, DM, HLD, DIDI who was sent from [facility] due to SOB Shortness of breath: Likely multifactorial in etiology 2/2 COPD, Diastolic heart Failure, DIDI, patient appears to have improved with Lasix administration patient noted to have ephysema on CT scan -Echo was a suboptimal study, normal EF, No signs of elevated PA Pressures; Will need repeat with contrast as an outpatient Patient reports PND, Orthopnea, KELLER Taper Steroids, titrate O2 CT chest reviewed Continue Lasix 40mg PO Qday as patient likely has some diastolic disfunction Outpatient Pulm, Cardio follow up
--- NOTE | 2019-12-17 15:56 | DS ---
Physical Exam: SUBJECTIVE: Patient seen and examined today, awake and alert, far more than previously. No acute distress. Speaking in full sentences. OBJECTIVE: Vital Signs Period Temp Pulse Resp BP Sys/Valencia Pulse Ox Last 24 Hr 97.7 F-98.5 F 75-85 20-20 125-132/60-72 90-95 PHYSICAL EXAM GENERAL: Morbid Obesity. The patient is awake, alert,in no acute distress. HEAD: Normal with no signs of trauma. EYES: PERRL, extraocular movements intact, sclera anicteric, conjunctiva clear. No ptosis. NECK: Trachea midline, full range of motion, supple. LUNGS: Decreased air entry b/l, although body habitus makes auscultation difficult HEART: S1, S2 heard without murmur, rub or gallop, however, body habitus makes auscultation difficult ABDOMEN: Soft, nontender, nondistended, normoactive bowel sounds, no guarding, no rebound. EXTREMITIES: PVD w/ hemosidderin deposition noted b/l in LE. 2+ pulses, warm, well-perfused, no edema. NEUROLOGICAL: Slurred speech, may be patients baseline gait not observed. PSYCH: Normal mood, normal affect. SKIN: Warm, dry, normal turgor LABS Laboratory Results - last 24 hr 12/16/19 12/16/19 12/16/19 16:00 16:00 17:33 WBC 11.1 H RBC 5.35 Hgb 15.9 Hct 49.7 H MCV 93.0 MCH 29.7 MCHC 32.0 RDW 17.1 H Plt Count 126 L MPV 9.9 Absolute Neuts (auto) 9.1 H Neutrophils % 81.7 Lymphocytes % 13.3 Monocytes % 4.7 Eosinophils % 0.2 D Basophils % 0.1 Nucleated RBC % 0 Sodium 138 Potassium 4.6 Chloride 100 Carbon Dioxide 31 Anion Gap 7 L BUN 30.6 H Creatinine 1.3 Est GFR (CKD-EPI)AfAm 62.74 Est GFR (CKD-EPI)NonAf 54.13 POC Glucometer 199 Random Glucose 167 H Calcium 8.4 L 12/16/19 12/17/19 12/17/19 21:12 07:05 07:05 WBC 11.2 H RBC 5.36 Hgb 16.0 Hct 50.1 H MCV 93.6 MCH 29.8 MCHC 31.9 L RDW 17.1 H Plt Count 137 MPV 9.5 Absolute Neuts (auto) 6.2 Neutrophils % 55.4 D Lymphocytes % 37.0 D Monocytes % 6.6 Eosinophils % 0.8 D Basophils % 0.2 Nucleated RBC % 0 Sodium 137 Potassium 4.1 Chloride 98 Carbon Dioxide 31 Anion Gap 8 BUN 27.9 H Creatinine 1.0 Est GFR (CKD-EPI)AfAm 86.15 Est GFR (CKD-EPI)NonAf 74.34 POC Glucometer 203 Random Glucose 131 H Calcium 8.7 12/17/19 12:20 WBC RBC Hgb Hct MCV MCH MCHC RDW Plt Count MPV Absolute Neuts (auto) Neutrophils % Lymphocytes % Monocytes % Eosinophils % Basophils % Nucleated RBC % Sodium Potassium Chloride Carbon Dioxide Anion Gap BUN Creatinine Est GFR (CKD-EPI)AfAm Est GFR (CKD-EPI)NonAf POC Glucometer 110 Random Glucose Calcium HOSPITAL COURSE: Date of Admission:12/11/19 -ECHO (12/14): EF 60%; Study non-diagnostic 2/2 body size. 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 Day #2: 12/17: You will take 8 pill (5mg each) to total 40mg. Day #3: 12/18 You will take 7 pills (5mg each) to total 35mg Day #4: 12/19 You will take 6 pills (5mg each) to total 30mg Day #5: 12/20 You will take 6 pills (5mg each) to total 30mg Day #6: 12/21 You will take 5 pills (5mg each) to total 25mg Day #7: 12/22 You will take 4 pills (5mg each) to total 20mg Day #8: 12/23 You will take 4 pills (5mg each) to total 20mg Day #9: 12/24 You will take 3 pills (5mg each) to total 15mg Day #10: 12/25 You will take 2 pills (5mg each) to total 10mg Day #11: 12/26 You will take 2 pills (5mg each) to total 10mg Day #12: 12/27 You will take 1 pill (5mg each) to total 5mg Date of Discharge: 12/17/19 74yo M with PMHx of polysubstance abuse (alcohol, cocaine, marijuana), Afib not on eliquis 2/2 non compliance, COPD, DM, HLD, DIDI presented from [facility] w/ [facility] and was brought in by EMS. During his time in the ED ptn was satting at RR 22 sat 93-97% on 3L NC. While going for CT scan, patient had a mechanical fall, and imaging showed no acute pathology, see above. During the patient's course on the medical floors, he was treated for both COPD vs CHF exacerbation and Acute alcohol intoxication/withdrawal. Ptn was started on Librium protocol for his alcohol intoxication/withdrawal and additional was given he was started on solumedro 40BID, Symbicort, Albuterol and lasix to treat a COPD exacerbation vs CHF exacerbation. CHF exacerbation was ruled out, and the patient improved on steroids and Lasix. Notably, the patient required supplemental O2, both at rest, and after a pre and post walk with Respiratory Therapy. Due to the patient's body habitus and underlying COPD social work was contacted, and Home O2 set up. The patient was advised to be DCd to rehab but insisted he be DCd home. At the time of discharge, the patient was medically stable and no longer intoxicated or going through withdrawal. Minutes to complete discharge: 36 Discharge Summary Problems reviewed: Yes Reason For Visit: SOB, PULMONARY EMPHYSEMA, SUSPECTED CONGESTIVE Current Active Problems COPD (chronic obstructive pulmonary disease) (Chronic) Dyspnea (Chronic) Condition: Improved - Instructions Diet, Activity, Other Instructions: Summary: You were admitted to the hospital for alcohol intoxication and detox, and COPD. You were treated with medications to improve your breathing and manage your withdrawal. Your symptoms have improved and you are now stable. Medications: -Please continue to take the steroid Prednisone. You will be slowly tapered off of this medication. The dosing instructions are as follows: Day #1 12/16: You will take 8 pills (5mg each) to total 40mg. Day #2: 12/17: You will take 8 pill (5mg each) to total 40mg. Day #3: 12/18 You will take 7 pills (5mg each) to total 35mg Day #4: 12/19 You will take 6 pills (5mg each) to total 30mg Day #5: 12/20 You will take 6 pills (5mg each) to total 30mg Day #6: 12/21 You will take 5 pills (5mg each) to total 25mg Day #7: 12/22 You will take 4 pills (5mg each) to total 20mg Day #8: 12/23 You will take 4 pills (5mg each) to total 20mg Day #9: 12/24 You will take 3 pills (5mg each) to total 15mg Day #10: 12/25 You will take 2 pills (5mg each) to total 10mg Day #11: 12/26 You will take 2 pills (5mg each) to total 10mg Day #12: 12/27 You will take 1 pill (5mg each) to total 5mg -We have added a medication called Lasix (furosemide) 40mg one pill one time per day. -Continue to take all other home medications as prescribed. Follow up: -Please follow-up with your primary home health caregiver in 1 week. If you do not have a primary care doctor you may make an appointment with Dr. Marie at the [facility] at [address] [place] [address] in [facility]. A referral has been provided to you. -Follow up with the detox and manager rehab Dr. Andrews at [facility] as soon as possible. -You had a chest CT done showing changes that may represent a chronic lung disease called COPD. Please follow up with a parts department supervisor regarding these findings. A referral has been provided for Dr. Henry Pan. Additional Instructions: -You are being discharged to your home. -Please return to the Emergency Department if you experience worsening shortness of breath, pain, fevers, chills, or chest pain, or if you experience any worsening, new or concerning symptoms. Referrals: Piter Marie MD [Staff Physician] - Jc Andrews DO [Staff Physician] - 1 Week Henry Pan MD, MD [Staff Physician] - 2 Weeks Disposition: HOME - Home Medications Comprehensive Discharge Medication List: Ambulatory Orders Albuterol Sulfate [Albuterol Sulfate Hfa] 1 puff PO Q6H PRN 12/10/19 Atorvastatin Ca [Lipitor] 40 mg PO HS 12/10/19 Gabapentin [Neurontin] 100 mg PO TID 12/10/19 Lisinopril 30 mg PO DAILY 12/10/19 Metformin HCl [Glucophage] 1,000 mg PO DAILY 12/10/19 Aspirin [ASA -] 81 mg PO DAILY 12/11/19 Cyclobenzaprine HCl [Flexeril -] 10 mg PO TID 12/11/19 Furosemide [Lasix] 40 mg PO DAILY #30 tablet 12/16/19 Prednisone See Taper PO DAILY #56 tablet 12/16/19 Tiotropium [place] [Spiriva] 1 inh PO DAILY 12/16/19 This patient is new to me today: No Emergency Visit: No Critical Care patient: No - Discharge Referral Referred to [facility] No ATTENDING PHYSICIAN STATEMENT I saw and evaluated the patient. I reviewed the resident's note and discussed the case with the resident. I agree with the resident's findings and plan as documented. SUBJECTIVE: OBJECTIVE: ASSESSMENT AND PLAN:
[2019-12-18] MEDS ORDERED: ALBUTEROL SO4 HFA INHALER IH PRN (00:12)
[2019-12-18] MEDS ORDERED: ALBUTEROL SO4 2.5/IPRATROPIUM 0.5 INH SOL 3 ML VIAL.NEB. NEB ONE (03:51)
[2019-12-18] MEDS: ALBUTEROL SO4 2.5/IPRATROPIUM 0.5 INH SOL 3 ML VIAL.NEB. NEB PRN (03:58)
[2019-12-18] MEDS: GABAPENTIN 100 MG CAPSULE PO SCH (06:17)
[2019-12-18] MEDS: ACETAMINOPHEN 500 MG TABLET (FP) PO PRN (06:17)
[2019-12-18] MEDS: INSULIN SLIDING SCALE (NOVOLOG) 1 VIAL SQ SCH ×2 (06:21→11:15)
[2019-12-18 06:27] VITALS: BP 128/77; PULSE 60; TEMP 97.8
[2019-12-18] MEDS: ASPIRIN 81 MG CHEWABLE TABLETS PO SCH (10:38)
[2019-12-18] MEDS: FOLIC ACID 1 MG TABLET (FP) PO SCH (10:38)
[2019-12-18] MEDS: predniSONE 20 MG TABLET (UD) PO SCH (10:38)
[2019-12-18] MEDS: POLYETHYLENE GLYCOL 3350 119 GM BTL PO SCH (10:38)
[2019-12-18] MEDS: MULTIVITAMINS (DAILY MVI) TABLET (FP) PO SCH (10:38)
[2019-12-18] MEDS: FLUTICASONE PROP 0.05% 16 GM NASAL SPRAY NS SCH (10:38)
[2019-12-18] MEDS: LISINOPRIL 20 MG TABLET (FP) PO SCH (10:38)
[2019-12-18] MEDS: ARTIFICIAL TEARS (POLYVINYL ALCOHOL) OPTH DROPS OU SCH (10:38)
[2019-12-18] MEDS: ENOXAPARIN NA (PORCINE) 40 MG/0.4 ML DISP.SYRIN SQ SCH (10:40)
== END 2019-12-18 12:15 | disposition home or self-care (01) | DRG 190 ==
LOC: JER 20:44 → JERBED 12-11 02:25 → J8W 12-11 20:28
PROVIDERS: ADMIT Internal Medicine; ATTEND Internal Medicine
DX: J44.1 Chronic obstructive pulmonary disease with (acute) exacerbation (principal); J96.01 Acute respiratory failure with hypoxia; J96.02 Acute respiratory failure with hypercapnia; S02.2XXB Fracture of nasal bones, initial encounter for open fracture; Z68.41 Body mass index [BMI] 40.0-44.9, adult; I45.2 Bifascicular block; F10.239 Alcohol dependence with withdrawal, unspecified; F14.20 Cocaine dependence, uncomplicated; I50.32 Chronic diastolic (congestive) heart failure; I11.0 Hypertensive heart disease with heart failure; Z88.0 Allergy status to penicillin; G47.33 Obstructive sleep apnea (adult) (pediatric); I44.0 Atrioventricular block, first degree; G47.30 Sleep apnea, unspecified; I45.10 Unspecified right bundle-branch block; D69.6 Thrombocytopenia, unspecified; I77.819 Aortic ectasia, unspecified site; I48.0 Paroxysmal atrial fibrillation; E66.01 Morbid (severe) obesity due to excess calories; J44.9 Chronic obstructive pulmonary disease, unspecified; I27.20 Pulmonary hypertension, unspecified; R94.31 Abnormal electrocardiogram [ECG] [EKG]; E11.9 Type 2 diabetes mellitus without complications; F12.10 Cannabis abuse, uncomplicated; W18.39XA Other fall on same level, initial encounter; Y92.098 Other place in other non-institutional residence as the place of occurrence of the external cause; Z91.19 Patient's noncompliance with other medical treatment and regimen
CPT/HCPCS: 36415; 36600; 70450-TC; 71045-TC-FY; 71250-TC; 72125-TC; 80048; 80053; 80307; 82550; 82803; 82962; 83036; 83735; 83880; 84100; 84443; 84484; 85025; 93005; 93010; 93306-TC; 93970-TC; 94010; 94640; 94761; 97116-GP; 97161-GP; 99285-25; J0131; U0003